=== PATIENT | female | born 1950 | race Caucasian/White ===

== ENCOUNTER 2021-05-03 17:50 | Inpatient (IN) | payer MEDICARE, OTHER, SELFPAY ==
--- NOTE | ~2021-05-03 | CT_ITS ---
EXAMINATION: CT SINUS WITHOUT CONTRAST CLINICAL INFORMATION: Erythema and fever. Evaluate for deep infection. COMPARISON: None TECHNIQUE: Axial images through the facial bones without contrast. Sagittal and coronal sections on the technologist workstation were performed. This CT examination was performed using dose optimization techniques as appropriate, variously including the following: *Automated exposure control *Adjustment of mA and/or kV according to patient size (this includes techniques or standardized protocols for targeted exams where dose is matched to indication/reason for exam; i.e. extremities or head) *Use of iterative reconstruction technique DLP: 112 mGy-cm FINDINGS: There is soft tissue swelling over the forehead. No fluid collection/abscess is seen. The orbits are normal appearing. The visualized paranasal sinuses are clear. There is partial soft tissue opacification of the right mastoid air cells. Mastoid air cells and middle ears are otherwise clear. Visualized salivary glands are normal. The naso, jodie-and hypopharynx are normal. There is mild generalized atrophy. Visualized intracranial structures are otherwise normal. There are degenerative changes at the C1-C2 articulation. Bony structures are otherwise normal. CT/CT sinus wo con IMPRESSION: Soft tissue swelling over the forehead questionable for cellulitis. Partial soft tissue opacification of the right mastoid air cells. Otherwise unremarkable exam.
--- NOTE | ~2021-05-03 | XR_ITS ---
EXAMINATION: XR CHEST CLINICAL INFORMATION: Weakness COMPARISON: None TECHNIQUE: Frontal view of the chest was obtained. FINDINGS: Evidence of previous cardiac surgery. No significant abnormality is noted involving the heart, lungs, mediastinum, bony thorax or soft tissues. XR/XR chest 1V IMPRESSION: No active chest disease.
[2021-05-03 17:59] VITALS: BP 172/88; BP 189/90; PULSE 94; PULSE 95; RESP 18; TEMP 39.2; O2SAT 94; O2SAT 95; BMI 39.1
--- NOTE | 2021-05-03 18:14 | ECG_ITS ---
Test Reason : WEAKNESS Blood Pressure : / mmHG Vent. Rate : 087 BPM Atrial Rate : 087 BPM P-R Int : 146 ms QRS Dur : 100 ms QT Int : 390 ms P-R-T Axes : 065 -03 091 degrees QTc Int : 469 ms Sinus rhythm with occasional Premature ventricular complexes Possible Left atrial enlargement Inferior infarct , age undetermined Nonspecific T wave abnormality Abnormal ECG No previous ECGs available Referred By: Jose Polanco Electronically Signed By:VERÓNICA [email or web address]
[2021-05-03 18:16] VITALS: BP 165/82; PULSE 92; RESP 20; TEMP 38.8; O2SAT 96
--- NOTE | 2021-05-03 18:28 | ED.GENADULT ---
HPI - General Adult General Chief complaint: Weakness <Jose Polanco NP - Last Filed: 05/04/21 01:18> Stated complaint: LETHARGY,WEAKNESS, ? UTI PER FAMILY <Jose Polanco NP - Last Filed: 05/04/21 01:18> Time Seen by Provider: 05/03/21 18:14 <Jose Polanco NP - Last Filed: 05/04/21 01:18> Source: EMS <Jose Polanco NP - Last Filed: 05/04/21 01:18> Mode of arrival: EMS <Jose Polanco NP - Last Filed: 05/04/21 01:18> Limitations: no limitations <Jose Polanco NP - Last Filed: 05/04/21 01:18> History of Present Illness HPI narrative: Pleasant 71-year-old female who lives at home with her daughter recently relocated from [place] to the local area she presents via EMS from home with complaint of generalized weakness. She has a medical history significant for chronic kidney disease, chronic obstructive pulmonary disease, insulin-dependent diabetes, hypertension, hyperlipidemia, congestive heart failure status post open her surgery, fatty liver disease and surgical history of hysterectomy and left knee surgery as well as open heart surgery. Her daughter is a nurse she reports she was doing very well in fact or [place] food yesterday she had her primary care visit on the with . This morning had urinary frequency and foul-smelling urine and this evening developed a fever. Daughter states has history of urine tract infection. Otherwise she is vaccinated for COVID-19 denies any recent travel or sick contact. Patient upon arrival states overall just feeling unwell but no complaints of pain or discomfort. <Jose Polanco NP - Last Filed: 05/04/21 01:18> Onset (ago): hour(s) (24 hours) <Jose Polanco NP - Last Filed: 05/04/21 01:18> Radiation: non-radiation <Jose Polanco NP - Last Filed: 05/04/21 01:18> Severity: moderate <ROSY Lynne Last Filed: 05/04/21 01:18> Quality: burning <ROSY Lynne Last Filed: 05/04/21 01:18> Pain Consistency: constant <Jose Polanco NP - Last Filed: 05/04/21 01:18> Relieving factors: none <Jose Polanco NP - Last Filed: 05/04/21 01:18> Exacerbating factors: none <Jose Polanco NP - Last Filed: 05/04/21 01:18> Associated symptoms: denies other symptoms <Jose Polanco NP - Last Filed: 05/04/21 01:18> Treatments prior to arrival: none <Jose Polanco NP - Last Filed: 05/04/21 01:18> Related Data Home medications: Home Medications Medication Instructions Recorded Confirmed Humalog U-100 Insulin 10 units SUBCUT DAILY 05/03/21 05/03/21 Lantus U-100 Insulin 30 units SUBCUT BEDTIME 05/03/21 05/03/21 Lipitor 20 mg PO DAILY 05/03/21 05/03/21 Probiotic PO DAILY 05/03/21 amlodipine 5 mg PO DAILY 05/03/21 05/03/21 aspirin 81 mg PO DAILY 05/03/21 05/03/21 furosemide 40 mg tablet (Lasix) 40 mg PO BID 05/03/21 05/03/21 losartan 100 mg tablet 100 mg PO DAILY 05/03/21 05/03/21 magnesium 100 mg tablet 100 mg PO DAILY 05/03/21 05/03/21 metoprolol tartrate 25 mg PO BID 05/03/21 05/03/21 multivitamin PO DAILY 05/03/21 niacinamide 500 mg PO BID 05/03/21 05/03/21 potassium chloride 10 meq PO DAILY 05/03/21 tacrolimus 0.2 mg PO DAILY 05/03/21 05/03/21 <Jose Polanco NP - Last Filed: 05/04/21 01:18> Allergies/adverse reactions: Allergies Allergy/AdvReac Type Severity Reaction Status Date / Time No Known Allergies Allergy Verified 05/03/21 18:09 <Jose Polanco NP - Last Filed: 05/04/21 01:18> Most Recent Cardiac Tests: Chest X-Ray 05/03/21 <Jose Polanco NP - Last Filed: 05/04/21 01:18> Pulmonary Results: No Data to Display <Jose Polanco NP - Last Filed: 05/04/21 01:18> Most Recent Cardiac Tests: Chest X-Ray 05/03/21 <Jose Polanco NP - Last Filed: 05/04/21 01:18> Chest X-Ray 05/03/21 <Jose Polanco NP - Last Filed: 05/04/21 01:18> Review of Systems Review of Systems: Constitutional: No Weight loss, + Fever, + Chills, No Night Sweats, No Fatigue ENT/Mouth: No Hearing loss, No Ear Pain, + Nasal Congestion, No Sinus Pain, No Hoarseness, No sore throat, No Rhinorrhea, No Swallowing Difficulty Eyes: No Eye Pain, No Swelling, No Redness, No Foreign Body, No Discharge, No Vision Changes Cardiovascular: No Chest Pain, No SOB, No Dyspnea on Exertion, No Orthopnea, No Edema, No Palpitations Respiratory: No Cough, No Sputum, No Wheezing, No Smoke Exposure, No Dyspnea Gastrointestinal: No Nausea, No Vomiting, No Diarrhea, No Constipation, No abdominal Pain, No Hematochezia, No Melena Genitourinary: no irregular bleeding, + Dysuria, + Urinary Frequency, No Hematuria, No Urinary Incontinence, No Flank Pain, No Hesitancy Musculoskeletal: No joint pain, No Myalgias, No Joint Swelling Skin: No Skin Lesions, No rash Neuro: No Weakness, No Numbness, No Paresthesias, No Loss of Consciousness, No Dizziness, No Headache Psych: No Anxiety/Panic, No Depression, No SI/HI/AH/VH, No Social Issues, Heme/Lymph: No Bruising, No Bleeding,No Lymphadenopathy Endocrine: No Polyuria, No Polydipsia, No Temperature Intolerance <Jose Polanco NP - Last Filed: 05/04/21 01:18> [facility] Past Medical History [facility] Narrative: COPD Insulin-dependent diabetes Hypertension Hyperlipidemia Fatty liver disease CHF Open heart surgery Hysterectomy Left knee surgery <Jose Polanco NP - Last Filed: 05/04/21 01:18> Medical History: Medical History (Updated 05/04/21 @ 02:33 by Troy Abraham RN) CHF (congestive heart failure) Diabetes mellitus type 1 Urinary tract infection <Jose Polanco NP - Last Filed: 05/04/21 01:18> Surgical History: Surgical History (Updated 05/04/21 @ 02:08 by Troy Abraham RN) History of hysterectomy <Jose Polanco NP - Last Filed: 05/04/21 01:18> Social History Social History: Social History Household Members: Family Housing: House Patient Tobacco Use Status: Never used Tobacco Use of substances other than those prescribed or required for medical reasons: No Have you been hit, kicked, punched, or otherwise hurt by someone within the past year? If so, by whom?: No Do you feel safe in your current relationship?: No Current Relationship Is there a partner from a previous relationship who is making you feel unsafe now?: No Are you made to feel afraid or neglected: No Advance Directives: No Advance Directives Information Provided: Yes Do you have thoughts of harming others: None Do you have a plan to hurt others: No Plan Recently lost weight without trying: Unsure Eating poorly because of decreased appetite: Yes Nutrition Risks: Poor intake 0-25% >4 days Patient : No : No Poor oral hygiene: No <Jose Polanco NP - Last Filed: 05/04/21 01:18> Physical Exam Vital Signs: Vital Signs: Last Vital Signs Temp 98.7 F 05/04/21 01:58 Pulse 75 05/04/21 01:58 Resp 05/04/21 01:58 BP 176/74 H 05/04/21 01:58 Pulse Ox 98 05/04/21 01:58 Body Mass Index 39.1 <Jose Polanco NP - Last Filed: 05/04/21 01:18> Vital Signs: Last Vital Signs Temp 98.7 F 05/04/21 01:58 Pulse 75 05/04/21 01:58 Resp 20 05/04/21 01:58 BP 176/74 H 05/04/21 01:58 Pulse Ox 98 05/04/21 01:58 Body Mass Index 39.1 <Suresh Jimenez MD - Last Filed: 05/04/21 05:37> Const: General: cooperative, lethargic (Slightly) and tired appearing; No acute distress or intoxicated appearing <Jose Polanco NP - Last Filed: 05/04/21 01:18> Nutritional Appearance: average body habitus <Jose Polanco NP - Last Filed: 05/04/21 01:18> Orientation/consciousness: patient oriented x3 and lethargic (Slightly) [facility] Last Filed: 05/04/21 01:18> HENMT: Head: Yes normal to inspection <[facility] Polanco, [facility] Last Filed: 05/04/21 01:18> Ears: hearing grossly normal bilaterally <[facility] Last Filed: 05/04/21 01:18> Eyes: General: appearance normal, both eyes and all related structures <[facility] Last Filed: 05/04/21 01:18> Visual Pressley: normal visual pressley by confrontation <[facility] Last Filed: 05/04/21 01:18> Neck: Neck: Yes normal visual inspection, No positive Brudzinski's sign, No positive Kernig's sign and No tender <[facility] Last Filed: 05/04/21 01:18> Thyroid: Thyroid normal <[facility] Last Filed: 05/04/21 01:18> Chest: Chest palpation & inspection: normal inspection of the chest <[facility] Last Filed: 05/04/21 01:18> Breast/axilla inspection: normal inspection of the axillae <[facility] Last Filed: 05/04/21 01:18> Resp: Effort & Inspection: normal respiratory effort <[facility] Last Filed: 05/04/21 01:18> Auscultation: clear to auscultation bilaterally <[facility]lin [facility] Last Filed: 05/04/21 01:18> Cardio: Jugular venous distension: no JVD [facility] Last Filed: 05/04/21 01:18> Rate: regular rate <[facility] Last Filed: 05/04/21 01:18> Rhythm: regular rhythm <[facility] Last Filed: 05/04/21 01:18> Heart sounds: S1 normal heart sound present and S2 normal heart sound present <[facility] Last Filed: 05/04/21 01:18> GI: Inspection: Yes normal to inspection <[facility] Last Filed: 05/04/21 01:18> Percussion: Yes normal to percussion <Jose ROSY Ploanco - Last Filed: 05/04/21 01:18> Auscultation: normal bowel sounds <Jose ROSY Polanco - Last Filed: 05/04/21 01:18> : General: Yes no CVA tenderness <[facility] ROSY Polanco - Last Filed: 05/04/21 01:18> Back/Spine/Pelvis: Back: no CVA tenderness <[facility] ROSY Polanco - Last Filed: 05/04/21 01:18> Skin: General skin exam: no rashes or lesions noted <[facility] ROSY Polanco - Last Filed: 05/04/21 01:18> Neuro: General: patient oriented x3 <Jose ROSY Polanco - Last Filed: 05/04/21 01:18> Extrem: General: Yes normal to inspection <[facility] ROSY Polanco - Last Filed: 05/04/21 01:18> Course Reevaluation(s) Reevaluation #1: 1800 Patient evaluated directly upon arrival febrile for EMS having urinary foul smell and frequency history urinary tract infection along with extensive history as noted above. She does report slight runny nose and congestion. Her daughter is a RN is present at bedside to assist with history. She reports generalized overall feels unwell but does not have any complaints of pain or discomfort. She is alert and oriented x3. She is tachycardic and febrile upon arrival. Sepsis screening done upon arrival. Will treat with gradual IV fluids given her underlying history of heart failure, Tylenol, check labs including respiratory panel, chest x-ray and re-evaluate. <Jose Polanco NP - Last Filed: 05/04/21 01:18> Reevaluation #2: 1830 Presumed urinary in etiology labs and urine obtained will initiate antibiotic therapy with ceftriaxone IV 1 g. Labs pending. Patient is stable at this time. <Jose Polanco NP - Last Filed: 05/04/21 01:18> Reevaluation #3: Labs reveal elevated BUN creatinine question chronic given her CKD history I do not have previous to compare to. Leukocytosis 16.9, lactic acid negative. Plan for admission. Sepsis focused exam completed. <Jose Polanco NP - Last Filed: 05/04/21 01:18> Consultations Consultation #1: Case discussed with hospitalist for admission. <Jose Polanco NP - Last Filed: 05/04/21 01:18> Medical Decision Making Lab Data Result diagrams: : 05/03/21 18:37 05/03/21 23:52 <Jose Polanco NP - Last Filed: 05/04/21 01:18> Labs: Lab Results 05/03/21 05/03/21 05/03/21 Range/Units 18:37 18:37 18:37 WBC 16.9 H (4.8-10.8) X10*3/uL RBC 4.30 (4.20-5.50) X10*6/uL Hgb 13.0 (12.0-16.0) g/dl Hct 36.9 L (37-47) % MCV 85.8 (80-98) fL MCH 30.2 (27.0-33.0) pg MCHC 35.2 H (31.0-35.0) g/dl RDW 14.6 (11.0-16.0) % Plt Count 154 L (160-400) X10*3/uL MPV 10.8 (9.4-12.3) fL Immature Gran % (Auto) 0.5 H (0.0-0.4) % Neut % (Auto) 83.0 H (45-73) % Lymph % (Auto) 8.6 L (20-40) % [place] % (Auto) 7.7 (2-11) % Eos % (Auto) 0.0 (0-4) % Baso % (Auto) 0.2 (0-2) % Lymph # (Auto) 1.5 (1.2-4.9) X10*3/uL [place] # (Auto) 1.3 H (0.1-1.2) X10*3/uL Eos # (Auto) 0.0 (0.0-0.4) X10*3/uL Baso # (Auto) 0.0 (0.0-0.2) X10*3/uL Abs Immat Gran (auto) 0.08 H (0.00-0.03) X10*3/uL Absolute Neuts (auto) 14.0 H (2.0-8.3) X10*3/uL Absolute Nucleated RBC 0.000 (0.0-0.012) X10*3/uL Nucleated RBC % (auto) 0.0 (0.0-0.2) /100WBC PT (9.9-13.0) SEC INR (0.9-1.1) APTT (24.1-38.0) SEC Sodium (135-145) mmol/L Potassium (3.3-5.1) mmol/L Chloride (96-108) mmol/L Carbon Dioxide (22-29) mmol/L Anion Gap (12-20) BUN (9-16) mg/dL Creatinine (0.5-1.4) mg/dL Estim Creat Clear Calc Estimated GFR Random Glucose (60-115) mg/dL Lactic Acid 0.9 (0.5-2.0) mmol/L Calcium (8.4-10.2) mg/dL Ferritin Total Bilirubin (0.0-1.0) mg/dL AST (5-31) U/L ALT (0-31) U/L Alkaline Phosphatase (39-117) U/L Lactate Dehydrogenase (122-220) U/L Troponin I High Sens (<3.5-17.0) ng/L C-Reactive Protein (< or = 0.50) mg/dL B-Natriuretic Peptide (<100) pg/mL Total Protein (6.5-8.0) g/dL Albumin (3.5-5.0) g/dL Procalcitonin ng/mL Urine Color Urine Appearance Urine pH (5.0-8.0) Ur Specific [place] (1.005-1.025) Urine Protein (NEG-TRACE) MG/DL Urine Glucose (UA) (NEG) MG/DL Urine Ketones (NEG) MG/DL Urine Blood (NEG) Urine Nitrite (NEG) Ur Leukocyte Esterase (NEG) Urine RBC (0) /HPF Urine WBC (0-4) /HPF Ur Squamous Epith Cells /LPF Urine Bacteria /LPF Coronavirus (PCR) NEGATIVE (Negative) Influenza Type A (PCR) NEGATIVE (Negative) Influenza Type B (PCR) NEGATIVE (Negative) RSV RNA Qual (PCR) NEGATIVE (Negative) 05/03/21 05/03/21 05/03/21 Range/Units 18:37 18:37 18:37 WBC (4.8-10.8) X10*3/uL RBC (4.20-5.50) X10*6/uL Hgb (12.0-16.0) g/dl Hct (37-47) % MCV (80-98) fL MCH (27.0-33.0) pg MCHC (31.0-35.0) g/dl RDW (11.0-16.0) % Plt Count (160-400) X10*3/uL MPV (9.4-12.3) fL Immature Gran % (Auto) (0.0-0.4) % Neut % (Auto) (45-73) % Lymph % (Auto) (20-40) % [place] % (Auto) (2-11) % Eos % (Auto) (0-4) % Baso % (Auto) (0-2) % Lymph # (Auto) (1.2-4.9) X10*3/uL [place] # (Auto) (0.1-1.2) X10*3/uL Eos # (Auto) (0.0-0.4) X10*3/uL Baso # (Auto) (0.0-0.2) X10*3/uL Abs Immat Gran (auto) (0.00-0.03) X10*3/uL Absolute Neuts (auto) (2.0-8.3) X10*3/uL Absolute Nucleated RBC (0.0-0.012) X10*3/uL Nucleated RBC % (auto) (0.0-0.2) /100WBC PT (9.9-13.0) SEC INR (0.9-1.1) APTT (24.1-38.0) SEC Sodium (135-145) mmol/L Potassium (3.3-5.1) mmol/L Chloride (96-108) mmol/L Carbon Dioxide (22-29) mmol/L Anion Gap (12-20) BUN (9-16) mg/dL Creatinine (0.5-1.4) mg/dL Estim Creat Clear Calc Estimated GFR Random Glucose (60-115) mg/dL Lactic Acid (0.5-2.0) mmol/L Calcium (8.4-10.2) mg/dL Ferritin Cancelled Total Bilirubin (0.0-1.0) mg/dL AST (5-31) U/L ALT (0-31) U/L Alkaline Phosphatase (39-117) U/L Lactate Dehydrogenase (122-220) U/L Troponin I High Sens 28.3 H* (<3.5-17.0) ng/L C-Reactive Protein (< or = 0.50) mg/dL B-Natriuretic Peptide (<100) pg/mL Total Protein (6.5-8.0) g/dL Albumin (3.5-5.0) g/dL Procalcitonin ng/mL Urine Color YELLOW Urine Appearance HAZY Urine pH 7.5 (5.0-8.0) Ur Specific [place] 1.015 (1.005-1.025) Urine Protein 3+ H (NEG-TRACE) MG/DL Urine Glucose (UA) NEG (NEG) MG/DL Urine Ketones NEG (NEG) MG/DL Urine Blood TRACE (NEG) Urine Nitrite POS H (NEG) Ur Leukocyte Esterase TRACE H (NEG) Urine RBC 0-2 (0) /HPF Urine WBC 15-29 H (0-4) /HPF Ur Squamous Epith Cells 1+ /LPF Urine Bacteria 2+ /LPF Coronavirus (PCR) (Negative) Influenza Type A (PCR) (Negative) Influenza Type B (PCR) (Negative) RSV RNA Qual (PCR) (Negative) 05/03/21 05/03/21 05/03/21 Range/Units 19:25 19:25 19:25 WBC (4.8-10.8) X10*3/uL RBC (4.20-5.50) X10*6/uL Hgb (12.0-16.0) g/dl Hct (37-47) % MCV (80-98) fL MCH (27.0-33.0) pg MCHC (31.0-35.0) g/dl RDW (11.0-16.0) % Plt Count (160-400) X10*3/uL MPV (9.4-12.3) fL Immature Gran % (Auto) (0.0-0.4) % Neut % (Auto) (45-73) % Lymph % (Auto) (20-40) % [place] % (Auto) (2-11) % Eos % (Auto) (0-4) % Baso % (Auto) (0-2) % Lymph # (Auto) (1.2-4.9) X10*3/uL [place] # (Auto) (0.1-1.2) X10*3/uL Eos # (Auto) (0.0-0.4) X10*3/uL Baso # (Auto) (0.0-0.2) X10*3/uL Abs Immat Gran (auto) (0.00-0.03) X10*3/uL Absolute Neuts (auto) (2.0-8.3) X10*3/uL Absolute Nucleated RBC (0.0-0.012) X10*3/uL Nucleated RBC % (auto) (0.0-0.2) /100WBC PT 14.6 H (9.9-13.0) SEC INR 1.3 H (0.9-1.1) APTT 43.9 H (24.1-38.0) SEC Sodium 137 (135-145) mmol/L Potassium 4.0 (3.3-5.1) mmol/L Chloride 108 (96-108) mmol/L Carbon Dioxide 20 L (22-29) mmol/L Anion Gap 13 (12-20) BUN 29 H (9-16) mg/dL Creatinine 1.63 H (0.5-1.4) mg/dL Estim Creat Clear Calc 36.2 Estimated GFR 31 Random Glucose 152 H (60-115) mg/dL Lactic Acid (0.5-2.0) mmol/L Calcium 8.4 (8.4-10.2) mg/dL Ferritin 124 Total Bilirubin 0.7 (0.0-1.0) mg/dL AST 24 (5-31) U/L ALT 26 (0-31) U/L Alkaline Phosphatase 49 (39-117) U/L Lactate Dehydrogenase 214 (122-220) U/L Troponin I High Sens (<3.5-17.0) ng/L C-Reactive Protein 6.28 H (< or = 0.50) mg/dL B-Natriuretic Peptide (<100) pg/mL Total Protein 5.4 L (6.5-8.0) g/dL Albumin 3.0 L (3.5-5.0) g/dL Procalcitonin 0.26 ng/mL Urine Color Urine Appearance Urine pH (5.0-8.0) Ur Specific [place] (1.005-1.025) Urine Protein (NEG-TRACE) MG/DL Urine Glucose (UA) (NEG) MG/DL Urine Ketones (NEG) MG/DL Urine Blood (NEG) Urine Nitrite (NEG) Ur Leukocyte Esterase (NEG) Urine RBC (0) /HPF Urine WBC (0-4) /HPF Ur Squamous Epith Cells /LPF Urine Bacteria /LPF Coronavirus (PCR) (Negative) Influenza Type A (PCR) (Negative) Influenza Type B (PCR) (Negative) RSV RNA Qual (PCR) (Negative) 05/03/21 Range/Units 20:22 WBC (4.8-10.8) X10*3/uL RBC (4.20-5.50) X10*6/uL Hgb (12.0-16.0) g/dl Hct (37-47) % MCV (80-98) fL MCH (27.0-33.0) pg MCHC (31.0-35.0) g/dl RDW (11.0-16.0) % Plt Count (160-400) X10*3/uL MPV (9.4-12.3) fL Immature Gran % (Auto) (0.0-0.4) % Neut % (Auto) (45-73) % Lymph % (Auto) (20-40) % [place] % (Auto) (2-11) % Eos % (Auto) (0-4) % Baso % (Auto) (0-2) % Lymph # (Auto) (1.2-4.9) X10*3/uL [place] # (Auto) (0.1-1.2) X10*3/uL Eos # (Auto) (0.0-0.4) X10*3/uL Baso # (Auto) (0.0-0.2) X10*3/uL Abs Immat Gran (auto) (0.00-0.03) X10*3/uL Absolute Neuts (auto) (2.0-8.3) X10*3/uL Absolute Nucleated RBC (0.0-0.012) X10*3/uL Nucleated RBC % (auto) (0.0-0.2) /100WBC PT (9.9-13.0) SEC INR (0.9-1.1) APTT (24.1-38.0) SEC Sodium (135-145) mmol/L Potassium (3.3-5.1) mmol/L Chloride (96-108) mmol/L Carbon Dioxide (22-29) mmol/L Anion Gap (12-20) BUN (9-16) mg/dL Creatinine (0.5-1.4) mg/dL Estim Creat Clear Calc Estimated GFR Random Glucose (60-115) mg/dL Lactic Acid (0.5-2.0) mmol/L Calcium (8.4-10.2) mg/dL Ferritin Total Bilirubin (0.0-1.0) mg/dL AST (5-31) U/L ALT (0-31) U/L Alkaline Phosphatase (39-117) U/L Lactate Dehydrogenase (122-220) U/L Troponin I High Sens 32.5 H* (<3.5-17.0) ng/L C-Reactive Protein (< or = 0.50) mg/dL B-Natriuretic Peptide 249 H (<100) pg/mL Total Protein (6.5-8.0) g/dL Albumin (3.5-5.0) g/dL Procalcitonin ng/mL Urine Color Urine Appearance Urine pH (5.0-8.0) Ur Specific [place] (1.005-1.025) Urine Protein (NEG-TRACE) MG/DL Urine Glucose (UA) (NEG) MG/DL Urine Ketones (NEG) MG/DL Urine Blood (NEG) Urine Nitrite (NEG) Ur Leukocyte Esterase (NEG) Urine RBC (0) /HPF Urine WBC (0-4) /HPF Ur Squamous Epith Cells /LPF Urine Bacteria /LPF Coronavirus (PCR) (Negative) Influenza Type A (PCR) (Negative) Influenza Type B (PCR) (Negative) RSV RNA Qual (PCR) (Negative) <Jose Polanco NP - Last Filed: 05/04/21 01:18> Lab Results 05/03/21 05/03/21 05/03/21 Range/Units 18:37 18:37 18:37 WBC 16.9 H (4.8-10.8) X10*3/uL RBC 4.30 (4.20-5.50) X10*6/uL Hgb 13.0 (12.0-16.0) g/dl Hct 36.9 L (37-47) % MCV 85.8 (80-98) fL MCH 30.2 (27.0-33.0) pg MCHC 35.2 H (31.0-35.0) g/dl RDW 14.6 (11.0-16.0) % Plt Count 154 L (160-400) X10*3/uL MPV 10.8 (9.4-12.3) fL Immature Gran % (Auto) 0.5 H (0.0-0.4) % Neut % (Auto) 83.0 H (45-73) % Lymph % (Auto) 8.6 L (20-40) % [place] % (Auto) 7.7 (2-11) % Eos % (Auto) 0.0 (0-4) % Baso % (Auto) 0.2 (0-2) % Lymph # (Auto) 1.5 (1.2-4.9) X10*3/uL [place] # (Auto) 1.3 H (0.1-1.2) X10*3/uL Eos # (Auto) 0.0 (0.0-0.4) X10*3/uL Baso # (Auto) 0.0 (0.0-0.2) X10*3/uL Abs Immat Gran (auto) 0.08 H (0.00-0.03) X10*3/uL Absolute Neuts (auto) 14.0 H (2.0-8.3) X10*3/uL Absolute Nucleated RBC 0.000 (0.0-0.012) X10*3/uL Nucleated RBC % (auto) 0.0 (0.0-0.2) /100WBC PT (9.9-13.0) SEC INR (0.9-1.1) APTT (24.1-38.0) SEC Sodium (135-145) mmol/L Potassium (3.3-5.1) mmol/L Chloride (96-108) mmol/L Carbon Dioxide (22-29) mmol/L Anion Gap (12-20) BUN (9-16) mg/dL Creatinine (0.5-1.4) mg/dL Estim Creat Clear Calc Estimated GFR Random Glucose (60-115) mg/dL Lactic Acid 0.9 (0.5-2.0) mmol/L Calcium (8.4-10.2) mg/dL Ferritin Total Bilirubin (0.0-1.0) mg/dL AST (5-31) U/L ALT (0-31) U/L Alkaline Phosphatase (39-117) U/L Lactate Dehydrogenase (122-220) U/L Troponin I High Sens (<3.5-17.0) ng/L C-Reactive Protein (< or = 0.50) mg/dL B-Natriuretic Peptide (<100) pg/mL Total Protein (6.5-8.0) g/dL Albumin (3.5-5.0) g/dL Procalcitonin ng/mL Urine Color Urine Appearance Urine pH (5.0-8.0) Ur Specific [place] (1.005-1.025) Urine Protein (NEG-TRACE) MG/DL Urine Glucose (UA) (NEG) MG/DL Urine Ketones (NEG) MG/DL Urine Blood (NEG) Urine Nitrite (NEG) Ur Leukocyte Esterase (NEG) Urine RBC (0) /HPF Urine WBC (0-4) /HPF Ur Squamous Epith Cells /LPF Urine Bacteria /LPF Coronavirus (PCR) NEGATIVE (Negative) Influenza Type A (PCR) NEGATIVE (Negative) Influenza Type B (PCR) NEGATIVE (Negative) RSV RNA Qual (PCR) NEGATIVE (Negative) 05/03/21 05/03/21 05/03/21 Range/Units 18:37 18:37 18:37 WBC (4.8-10.8) X10*3/uL RBC (4.20-5.50) X10*6/uL Hgb (12.0-16.0) g/dl Hct (37-47) % MCV (80-98) fL MCH (27.0-33.0) pg MCHC (31.0-35.0) g/dl RDW (11.0-16.0) % Plt Count (160-400) X10*3/uL MPV (9.4-12.3) fL Immature Gran % (Auto) (0.0-0.4) % Neut % (Auto) (45-73) % Lymph % (Auto) (20-40) % [place] % (Auto) (2-11) % Eos % (Auto) (0-4) % Baso % (Auto) (0-2) % Lymph # (Auto) (1.2-4.9) X10*3/uL [place] # (Auto) (0.1-1.2) X10*3/uL Eos # (Auto) (0.0-0.4) X10*3/uL Baso # (Auto) (0.0-0.2) X10*3/uL Abs Immat Gran (auto) (0.00-0.03) X10*3/uL Absolute Neuts (auto) (2.0-8.3) X10*3/uL Absolute Nucleated RBC (0.0-0.012) X10*3/uL Nucleated RBC % (auto) (0.0-0.2) /100WBC PT (9.9-13.0) SEC INR (0.9-1.1) APTT (24.1-38.0) SEC Sodium (135-145) mmol/L Potassium (3.3-5.1) mmol/L Chloride (96-108) mmol/L Carbon Dioxide (22-29) mmol/L Anion Gap (12-20) BUN (9-16) mg/dL Creatinine (0.5-1.4) mg/dL Estim Creat Clear Calc Estimated GFR Random Glucose (60-115) mg/dL Lactic Acid (0.5-2.0) mmol/L Calcium (8.4-10.2) mg/dL Ferritin Cancelled Total Bilirubin (0.0-1.0) mg/dL AST (5-31) U/L ALT (0-31) U/L Alkaline Phosphatase (39-117) U/L Lactate Dehydrogenase (122-220) U/L Troponin I High Sens 28.3 H* (<3.5-17.0) ng/L C-Reactive Protein (< or = 0.50) mg/dL B-Natriuretic Peptide (<100) pg/mL Total Protein (6.5-8.0) g/dL Albumin (3.5-5.0) g/dL Procalcitonin ng/mL Urine Color YELLOW Urine Appearance HAZY Urine pH 7.5 (5.0-8.0) Ur Specific [place] 1.015 (1.005-1.025) Urine Protein 3+ H (NEG-TRACE) MG/DL Urine Glucose (UA) NEG (NEG) MG/DL Urine Ketones NEG (NEG) MG/DL Urine Blood TRACE (NEG) Urine Nitrite POS H (NEG) Ur Leukocyte Esterase TRACE H (NEG) Urine RBC 0-2 (0) /HPF Urine WBC 15-29 H (0-4) /HPF Ur Squamous Epith Cells 1+ /LPF Urine Bacteria 2+ /LPF Coronavirus (PCR) (Negative) Influenza Type A (PCR) (Negative) Influenza Type B (PCR) (Negative) RSV RNA Qual (PCR) (Negative) 05/03/21 05/03/21 05/03/21 Range/Units 19:25 19:25 19:25 WBC (4.8-10.8) X10*3/uL RBC (4.20-5.50) X10*6/uL Hgb (12.0-16.0) g/dl Hct (37-47) % MCV (80-98) fL MCH (27.0-33.0) pg MCHC (31.0-35.0) g/dl RDW (11.0-16.0) % Plt Count (160-400) X10*3/uL MPV (9.4-12.3) fL Immature Gran % (Auto) (0.0-0.4) % Neut % (Auto) (45-73) % Lymph % (Auto) (20-40) % [place] % (Auto) (2-11) % Eos % (Auto) (0-4) % Baso % (Auto) (0-2) % Lymph # (Auto) (1.2-4.9) X10*3/uL [place] # (Auto) (0.1-1.2) X10*3/uL Eos # (Auto) (0.0-0.4) X10*3/uL Baso # (Auto) (0.0-0.2) X10*3/uL Abs Immat Gran (auto) (0.00-0.03) X10*3/uL Absolute Neuts (auto) (2.0-8.3) X10*3/uL Absolute Nucleated RBC (0.0-0.012) X10*3/uL Nucleated RBC % (auto) (0.0-0.2) /100WBC PT 14.6 H (9.9-13.0) SEC INR 1.3 H (0.9-1.1) APTT 43.9 H (24.1-38.0) SEC Sodium 137 (135-145) mmol/L Potassium 4.0 (3.3-5.1) mmol/L Chloride 108 (96-108) mmol/L Carbon Dioxide 20 L (22-29) mmol/L Anion Gap 13 (12-20) BUN 29 H (9-16) mg/dL Creatinine 1.63 H (0.5-1.4) mg/dL Estim Creat Clear Calc 36.2 Estimated GFR 31 Random Glucose 152 H (60-115) mg/dL Lactic Acid (0.5-2.0) mmol/L Calcium 8.4 (8.4-10.2) mg/dL Ferritin 124 Total Bilirubin 0.7 (0.0-1.0) mg/dL AST 24 (5-31) U/L ALT 26 (0-31) U/L Alkaline Phosphatase 49 (39-117) U/L Lactate Dehydrogenase 214 (122-220) U/L Troponin I High Sens (<3.5-17.0) ng/L C-Reactive Protein 6.28 H (< or = 0.50) mg/dL B-Natriuretic Peptide (<100) pg/mL Total Protein 5.4 L (6.5-8.0) g/dL Albumin 3.0 L (3.5-5.0) g/dL Procalcitonin 0.26 ng/mL Urine Color Urine Appearance Urine pH (5.0-8.0) Ur Specific [place] (1.005-1.025) Urine Protein (NEG-TRACE) MG/DL Urine Glucose (UA) (NEG) MG/DL Urine Ketones (NEG) MG/DL Urine Blood (NEG) Urine Nitrite (NEG) Ur Leukocyte Esterase (NEG) Urine RBC (0) /HPF Urine WBC (0-4) /HPF Ur Squamous Epith Cells /LPF Urine Bacteria /LPF Coronavirus (PCR) (Negative) Influenza Type A (PCR) (Negative) Influenza Type B (PCR) (Negative) RSV RNA Qual (PCR) (Negative) 05/03/21 Range/Units 20:22 WBC (4.8-10.8) X10*3/uL RBC (4.20-5.50) X10*6/uL Hgb (12.0-16.0) g/dl Hct (37-47) % MCV (80-98) fL MCH (27.0-33.0) pg MCHC (31.0-35.0) g/dl RDW (11.0-16.0) % Plt Count (160-400) X10*3/uL MPV (9.4-12.3) fL Immature Gran % (Auto) (0.0-0.4) % Neut % (Auto) (45-73) % Lymph % (Auto) (20-40) % [place] % (Auto) (2-11) % Eos % (Auto) (0-4) % Baso % (Auto) (0-2) % Lymph # (Auto) (1.2-4.9) X10*3/uL [place] # (Auto) (0.1-1.2) X10*3/uL Eos # (Auto) (0.0-0.4) X10*3/uL Baso # (Auto) (0.0-0.2) X10*3/uL Abs Immat Gran (auto) (0.00-0.03) X10*3/uL Absolute Neuts (auto) (2.0-8.3) X10*3/uL Absolute Nucleated RBC (0.0-0.012) X10*3/uL Nucleated RBC % (auto) (0.0-0.2) /100WBC PT (9.9-13.0) SEC INR (0.9-1.1) APTT (24.1-38.0) SEC Sodium (135-145) mmol/L Potassium (3.3-5.1) mmol/L Chloride (96-108) mmol/L Carbon Dioxide (22-29) mmol/L Anion Gap (12-20) BUN (9-16) mg/dL Creatinine (0.5-1.4) mg/dL Estim Creat Clear Calc Estimated GFR Random Glucose (60-115) mg/dL Lactic Acid (0.5-2.0) mmol/L Calcium (8.4-10.2) mg/dL Ferritin Total Bilirubin (0.0-1.0) mg/dL AST (5-31) U/L ALT (0-31) U/L Alkaline Phosphatase (39-117) U/L Lactate Dehydrogenase (122-220) U/L Troponin I High Sens 32.5 H* (<3.5-17.0) ng/L C-Reactive Protein (< or = 0.50) mg/dL B-Natriuretic Peptide 249 H (<100) pg/mL Total Protein (6.5-8.0) g/dL Albumin (3.5-5.0) g/dL Procalcitonin ng/mL Urine Color Urine Appearance Urine pH (5.0-8.0) Ur Specific [place] (1.005-1.025) Urine Protein (NEG-TRACE) MG/DL Urine Glucose (UA) (NEG) MG/DL Urine Ketones (NEG) MG/DL Urine Blood (NEG) Urine Nitrite (NEG) Ur Leukocyte Esterase (NEG) Urine RBC (0) /HPF Urine WBC (0-4) /HPF Ur Squamous Epith Cells /LPF Urine Bacteria /LPF Coronavirus (PCR) (Negative) Influenza Type A (PCR) (Negative) Influenza Type B (PCR) (Negative) RSV RNA Qual (PCR) (Negative) <Suresh Jimenez MD - Last Filed: 05/04/21 05:37> Imaging Data Chest x-ray: Radiologist's impression: [place] [id number] XRay Report Signed Patient: Kim Damian MR#: [id number] : 1950 Acct:[id number] Age/Sex: 71 / F ADM Date: 05/03/21 Loc: .ED Attending Dr: Ordering Physician: Jose Polanoc [employer] Date of Service: 05/03/21 Procedure(s): XR chest 1V Accession Number(s): [id number] cc: Jose Polanco [employer]ER~ EXAMINATION: XR CHEST CLINICAL INFORMATION: Weakness COMPARISON: None TECHNIQUE: Frontal view of the chest was obtained. FINDINGS: Evidence of previous cardiac surgery. No significant abnormality is noted involving the heart, lungs, mediastinum, bony thorax or soft tissues. XR/XR chest 1V IMPRESSION: No active chest disease. ? Dictated By: KASH HAMILTON MD Signed By: <Electronically signed by KASH HAMILTON MD in OV> 05/03/21 1855 DD/ TD/TT:? [employer] Attendant: SL <Jose Polanco NP - Last Filed: 05/04/21 01:18> ECG Data Interpretation: Test Reason : WEAKNESS Blood Pressure : / mmHG Vent. Rate : 087 BPM ? ? Atrial Rate : 087 BPM ?? P-R Int : 146 ms? QRS Dur : 100 ms ? ? QT Int : 390 ms ? ? ? P-R-T Axes : 065 -03 091 degrees ?? QTc Int : 469 ms ? Sinus rhythm with occasional Premature ventricular complexes Possible Left atrial enlargement Inferior infarct , age undetermined Abnormal ECG No previous ECGs available <Jose Polanco NP - Last Filed: 05/04/21 01:18> Critical Care Time Critical Care Time Critical Care Time: Yes <Jose Polanco NP - Last Filed: 05/04/21 01:18> Total Critical Care Time: 65 <Jose Polanco NP - Last Filed: 05/04/21 01:18> Attestation: Presenting with criteria for sepsis, rapidly evaluated and treated accordingly. Multiple visits to bedside for re-evaluation. <Jose Polanco NP - Last Filed: 05/04/21 01:18> Discharge Plan Discharge Clinical Impression: Sepsis <Jose Polanco NP - Last Filed: 05/04/21 01:18> Patient Disposition: Admitted As Inpatient <Jose Polanco NP - Last Filed: 05/04/21 01:18> Interventions: Admission Worksheet (ED) Last Done: 05/04/21 01:44 <Jose Polanco NP - Last Filed: 05/04/21 01:18> Discharge Date/Time: 05/04/21 01:53 <Jose Polanco NP - Last Filed: 05/04/21 01:18>
[2021-05-03 18:45] LABS: MANUAL DIFF FLAG NO
[2021-05-03] MEDS: 0.9 % Sodium Chloride 500 ML IV (18:52)
[2021-05-03] MEDS: cefTRIAXone sodium 1 GM in 0.9 % Sodium Chloride 50 ML IV (18:53)
[2021-05-03 18:55] LABS: Basophils Percent Auto 0.2 % (0-2); Hematocrit 36.9 % (37-47); Imm Gran Abs Auto 0.08 X10*3/uL (0.00-0.03); Imm Gran Pct Auto 0.5 % (0.0-0.4); Lymphocytes Absolute Auto 1.5 X10*3/uL (1.2-4.9); Lymphocytes Percent Auto 8.6 % (20-40); Mean Corpuscular HGB Conc 35.2 g/dl (31.0-35.0); Mean Corpuscular Hemoglobin 30.2 pg (27.0-33.0); Mean Corpuscular Volume 85.8 fL (80-98); Mean Platelet Volume 10.8 fL (9.4-12.3); Monocytes Absolute Auto 1.3 X10*3/uL (0.1-1.2); Monocytes Percent Auto 7.7 % (2-11); Platelet Count 154 X10*3/uL (160-400); Red Cell Distribution Width 14.6 % (11.0-16.0); White Blood Count 16.9 X10*3/uL (4.8-10.8)
[2021-05-03] MEDS: Acetaminophen 325 MG TABLET 975 MG PO (18:55)
[2021-05-03 18:58] LABS: Appearance Urine HAZY; Color Urine YELLOW; Glucose Urine UA NEG (NEG); Leukocyte Esterase Urine TRACE (NEG); Nitrite Urine POS (NEG); PH 7.5 (5.0-8.0); Specific Gravity - Urine 1.015 (1.005-1.025); UACC Culture Trigger YES; Urine Blood TRACE (NEG); Urine Ketones NEG (NEG); Urine Protein 3+ MG/DL (NEG-TRACE)
[2021-05-03 19:05] LABS: Lactic Acid 0.9 mmol/L (0.5-2.0)
[2021-05-03 19:08] LABS: Bacteria Urine 2+ /LPF; RBC Urine 0-2 /HPF (0); Squamous Epithelial Cell Urine 1+ /LPF; UACC CULT YES
[2021-05-03 19:19] VITALS: BP 178/82; PULSE 84; RESP 18; TEMP 37.5; O2SAT 98
[2021-05-03 19:22] LABS: Troponin-I High Sensitivity 28.3 ng/L (<3.5-17.0)
[2021-05-03 19:34] VITALS: BP 172/72; PULSE 84; RESP 18; TEMP 37.4; O2SAT 96
[2021-05-03 19:42] LABS: INTERNATIONAL NORM RATIO 1.3 (0.9-1.1); Prothrombin Time 14.6 SEC (9.9-13.0)
[2021-05-03 19:45] LABS: Partial Thromboplastin Time 43.9 SEC (24.1-38.0)
--- NOTE | 2021-05-03 19:48 | PC.NURSE ---
patient arrives to ED with weakness, febrile, and increased urination. Daughter at bedside. patient A+ox4 but increased drowsiness and some confusion at times. Rectal temp of 102. Provider aware. Labs drawn and sent. 2 IVs placed and flushed. Meds given per OCT. VS taken. Med rec done and completed with daughter. Tylenol given with good effect. patient resting safely. Able to swallow pills whole.
[2021-05-03 20:00] LABS: Alanine Aminotransferase 26 U/L (0-31); Alkaline Phosphatase 49 U/L (39-117); Anion Gap 13 (12-20); Aspartate Amino Transferase 24 U/L (5-31); Bilirubin Total 0.7 mg/dL (0.0-1.0); Blood Urea Nitrogen 29 mg/dL (9-16); C Reactive Protein 6.28 mg/dL (< or = 0.50); Calcium 8.4 mg/dL (8.4-10.2); Carbon Dioxide 20 mmol/L (22-29); Chloride 108 mmol/L (96-108); Creatinine Clr Calc Pharmacy 36.2; Estimated Glomerular Filt Rate 31; Glucose Random 152 mg/dL (60-115); Lactate Dehydrogenase 214 U/L (122-220); Sodium 137 mmol/L (135-145); Total Protein 5.4 g/dL (6.5-8.0)
[2021-05-03 20:16] LABS: Influenza A PCR NEGATIVE (Negative); Influenza B PCR NEGATIVE (Negative); Resp Syncy Virus RNA Qual PCR NEGATIVE (Negative); SARS COV2 PCR INHOUSE NEGATIVE (Negative)
[2021-05-03 20:18] LABS: Procalcitonin 0.26 ng/mL
[2021-05-03 20:20] LABS: Ferritin 124 ng/mL (10-250)
[2021-05-03 20:57] LABS: Troponin-I High Sensitivity 32.5 ng/L (<3.5-17.0)
[2021-05-03 22:00] VITALS: BP 155/70; PULSE 70
[2021-05-03 22:08] VITALS: BP 162/70; PULSE 69; RESP 18; TEMP 36.6; O2SAT 98
[2021-05-03 22:56] LABS: B Type Natriuretic Peptide 249 pg/mL (<100)
--- NOTE | 2021-05-03 23:25 | P.HPHOSP_ITS ---
History of Present Illness Date of Service: 05/03/21 Chief Complaint: urinary frequency, fever 71-year-old female with past medical history of diabetes, hypertension, hyperlipidemia, CKD, CHF, CAD status post CABG brought in by her daughter who is a nurse who reported that patient was doing very well up until today when she started experiencing urinary frequency, foul-smelling urine, and had a fever of 102 at home. Patient currently sleeping very comfortably in bed, arousable, able to give history. She denies any chest pain, no shortness of breath, no abdominal pain nausea or vomiting, no diarrhea constipation, no lower extremity edema. No numbness weakness or tingling. Patient hemodynamically stable with temp of 102.5?, heart rate of 95, respiratory rate of 18, blood pressure 189/90, satting 95% on room air Labs are significant for WBC count of 12.4, prothrombin of 14.6, INR of 1.3, BUN of 29, creatinine of 1.63, troponin of 28.3, repeat of 32.5, CRP of 6.28, BNP of 249, positive UA for nitrites leukocyte [place] and WBC No evidence of active chest disease Patient received 500 cc of IV fluids in the ED and will be admitted for further management of UTI Review of Systems Review of Systems: Yes all other systems are reviewed and are negative [facility] Medical History (Updated 05/04/21 @ 06:47 by Jonatan Garg MD) CAD (coronary artery disease) CHF (congestive heart failure) CKD (chronic kidney disease) Diabetes mellitus type 1 Hypertension Urinary tract infection Pertinent family history: No pertinent family history Surgical History (Updated 05/04/21 @ 02:08 by Troy Abraham RN) History of hysterectomy Social History Household Members: Family Housing: House Patient Tobacco Use Status: Never used Tobacco Use of substances other than those prescribed or required for medical reasons: No Have you been hit, kicked, punched, or otherwise hurt by someone within the past year? If so, by whom?: No Do you feel safe in your current relationship?: No Current Relationship Is there a partner from a previous relationship who is making you feel unsafe now?: No Are you made to feel afraid or neglected: No Advance Directives: No Advance Directives Information Provided: Yes Do you have thoughts of harming others: None Do you have a plan to hurt others: No Plan Recently lost weight without trying: Unsure Eating poorly because of decreased appetite: Yes Nutrition Risks: Poor intake 0-25% >4 days Patient : No : No Poor oral hygiene: No Meds Allergies Allergy/AdvReac Type Severity Reaction Status Date / Time No Known Allergies Allergy Verified 05/03/21 18:09 Home Medications Medication Instructions Recorded Confirmed Last Taken Type Humalog U-100 Insulin 10 units SUBCUT DAILY 05/03/21 05/03/21 05/02/21 History Lantus U-100 Insulin 30 units SUBCUT BEDTIME 05/03/21 05/03/21 05/02/21 History Lipitor 20 mg PO DAILY 05/03/21 05/03/21 05/02/21 History Probiotic PO DAILY 05/03/21 05/02/21 History amlodipine 5 mg PO DAILY 05/03/21 05/03/21 05/02/21 History aspirin 81 mg PO DAILY 05/03/21 05/03/21 05/02/21 History furosemide 40 mg tablet (Lasix) 40 mg PO BID 05/03/21 05/03/21 05/02/21 History losartan 100 mg tablet 100 mg PO DAILY 05/03/21 05/03/21 05/02/21 History magnesium 100 mg tablet 100 mg PO DAILY 05/03/21 05/03/21 05/02/21 History metoprolol tartrate 25 mg PO BID 05/03/21 05/03/21 05/02/21 History multivitamin PO DAILY 05/03/21 05/02/21 History niacinamide 500 mg PO BID 05/03/21 05/03/21 05/02/21 History potassium chloride 10 meq PO DAILY 05/03/21 05/02/21 History tacrolimus 0.2 mg PO DAILY 05/03/21 05/03/21 05/02/21 History Physical Exam Vital Signs and Narrative: Vital Signs: Last Vital Signs Temp 98 F 05/03/21 22:08 Pulse 69 05/03/21 22:08 Resp 18 05/03/21 22:08 BP 162/70 H 05/03/21 22:08 Pulse Ox 98 05/03/21 22:08 Body Mass Index 39.1 Const: General: cooperative and no acute distress Orientation/consciousness: patient oriented x3 Eyes: General: appearance normal, both eyes and all related structures Resp: Effort & Inspection: normal respiratory effort Auscultation: clear to auscultation bilaterally Cardio: Rate: regular rate Rhythm: regular rhythm GI: Palpation (GI): Soft to palpation Auscultation: normal bowel sounds Skin: General skin exam: no rashes or lesions noted Neuro: General: patient oriented x3 Cognition (Neuro): normal cognition Extrem: General: Yes normal to inspection and Yes no pedal edema Results Labs CBC and Chem 7: 05/04/21 05:44 05/03/21 23:52 Labs: Laboratory Results - last 24 hr 05/03/21 05/03/21 05/03/21 18:37 18:37 18:37 MCV 85.8 MCH 30.2 MCHC 35.2 H RDW 14.6 Plt Count 154 L MPV 10.8 Immature Gran % (Auto) 0.5 H Neut % (Auto) 83.0 H Lymph % (Auto) 8.6 L [place] % (Auto) 7.7 Eos % (Auto) 0.0 Baso % (Auto) 0.2 Lymph # (Auto) 1.5 [place] # (Auto) 1.3 H Eos # (Auto) 0.0 Baso # (Auto) 0.0 Abs Immat Gran (auto) 0.08 H Absolute Neuts (auto) 14.0 H Absolute Nucleated RBC 0.000 Nucleated RBC % (auto) 0.0 PT INR APTT Anion Gap Estim Creat Clear Calc Estimated GFR Random Glucose Lactic Acid 0.9 Calcium Ferritin Total Bilirubin AST ALT Alkaline Phosphatase Lactate Dehydrogenase Troponin I High Sens C-Reactive Protein B-Natriuretic Peptide Total Protein Albumin Procalcitonin Urine Color Urine Appearance Urine pH Ur Specific [place] Urine Protein Urine Glucose (UA) Urine Ketones Urine Blood Urine Nitrite Ur Leukocyte Esterase Urine RBC Urine WBC Ur Squamous Epith Cells Urine Bacteria Coronavirus (PCR) NEGATIVE Influenza Type A (PCR) NEGATIVE Influenza Type B (PCR) NEGATIVE RSV RNA Qual (PCR) NEGATIVE 05/03/21 05/03/21 05/03/21 18:37 18:37 18:37 MCV MCH MCHC RDW Plt Count MPV Immature Gran % (Auto) Neut % (Auto) Lymph % (Auto) [place] % (Auto) Eos % (Auto) Baso % (Auto) Lymph # (Auto) [place] # (Auto) Eos # (Auto) Baso # (Auto) Abs Immat Gran (auto) Absolute Neuts (auto) Absolute Nucleated RBC Nucleated RBC % (auto) PT INR APTT Anion Gap Estim Creat Clear Calc Estimated GFR Random Glucose Lactic Acid Calcium Ferritin Cancelled Total Bilirubin AST ALT Alkaline Phosphatase Lactate Dehydrogenase Troponin I High Sens 28.3 H* C-Reactive Protein B-Natriuretic Peptide Total Protein Albumin Procalcitonin Urine Color YELLOW Urine Appearance HAZY Urine pH 7.5 Ur Specific [place] 1.015 Urine Protein 3+ H Urine Glucose (UA) NEG Urine Ketones NEG Urine Blood TRACE Urine Nitrite POS H Ur Leukocyte Esterase TRACE H Urine RBC 0-2 Urine WBC 15-29 H Ur Squamous Epith Cells 1+ Urine Bacteria 2+ Coronavirus (PCR) Influenza Type A (PCR) Influenza Type B (PCR) RSV RNA Qual (PCR) 05/03/21 05/03/21 05/03/21 19:25 19:25 19:25 MCV MCH MCHC RDW Plt Count MPV Immature Gran % (Auto) Neut % (Auto) Lymph % (Auto) [place] % (Auto) Eos % (Auto) Baso % (Auto) Lymph # (Auto) [place] # (Auto) Eos # (Auto) Baso # (Auto) Abs Immat Gran (auto) Absolute Neuts (auto) Absolute Nucleated RBC Nucleated RBC % (auto) PT 14.6 H INR 1.3 H APTT 43.9 H Anion Gap 13 Estim Creat Clear Calc 36.2 Estimated GFR 31 Random Glucose 152 H Lactic Acid Calcium 8.4 Ferritin 124 Total Bilirubin 0.7 AST 24 ALT 26 Alkaline Phosphatase 49 Lactate Dehydrogenase 214 Troponin I High Sens C-Reactive Protein 6.28 H B-Natriuretic Peptide Total Protein 5.4 L Albumin 3.0 L Procalcitonin 0.26 Urine Color Urine Appearance Urine pH Ur Specific [place] Urine Protein Urine Glucose (UA) Urine Ketones Urine Blood Urine Nitrite Ur Leukocyte Esterase Urine RBC Urine WBC Ur Squamous Epith Cells Urine Bacteria Coronavirus (PCR) Influenza Type A (PCR) Influenza Type B (PCR) RSV RNA Qual (PCR) 05/03/21 20:22 MCV MCH MCHC RDW Plt Count MPV Immature Gran % (Auto) Neut % (Auto) Lymph % (Auto) [place] % (Auto) Eos % (Auto) Baso % (Auto) Lymph # (Auto) [place] # (Auto) Eos # (Auto) Baso # (Auto) Abs Immat Gran (auto) Absolute Neuts (auto) Absolute Nucleated RBC Nucleated RBC % (auto) PT INR APTT Anion Gap Estim Creat Clear Calc Estimated GFR Random Glucose Lactic Acid Calcium Ferritin Total Bilirubin AST ALT Alkaline Phosphatase Lactate Dehydrogenase Troponin I High Sens 32.5 H* C-Reactive Protein B-Natriuretic Peptide 249 H Total Protein Albumin Procalcitonin Urine Color Urine Appearance Urine pH Ur Specific [place] Urine Protein Urine Glucose (UA) Urine Ketones Urine Blood Urine Nitrite Ur Leukocyte Esterase Urine RBC Urine WBC Ur Squamous Epith Cells Urine Bacteria Coronavirus (PCR) Influenza Type A (PCR) Influenza Type B (PCR) RSV RNA Qual (PCR) Imaging Radiologist's Impressions: Impressions Chest X-Ray 05/03/21 18:15 IMPRESSION: No active chest disease. Assessment and Plan (1) Urinary tract infection: Status: Acute (2) CKD (chronic kidney disease): Status: Acute (3) Sepsis: Status: Acute 71-year-old female with past medical history of hypertension, hyperlipidemia, diabetes, CAD, CHF presents to the hospital with complaints of urinary frequency found to have urinary tract infection with sepsis # sepsis - secondary to UTI - has fever, leukocytosis - will start on IV antibiotics - follow cultures # UTI - UA positive - will start on IV antibiotics - follow cultures # CKD - no baseline for comparison - on Lasix for history of CHF as well as multiple medications for hypertension - at this time will monitor with repeat BMP # CHF - no evidence of exacerbation - denies any shortness of breath, no lower extremity edema - will continue home Lasix - monitor for respiratory status as well as any changes to kidney function # diabetes - continue home insulin - will add low-dose sliding scale insulin - diabetic diet # history of CAD and CABG - continue aspirin, metoprolol, Lipitor DVT prophylaxis: heparin subq Quality Stroke Does the patient have a stroke diagnosis?: No VTE Prior VTE?: No VTE Risk Level:: Medical - moderate - high VTE Device Contraindication: Treatment Not Indicated VTE Drug Contraindication: N/A - Med Ordered
[2021-05-04] VITALS (13 sets, daily range): BP systolic 160–180; BP diastolic 73–86; PULSE 62–114; RESP 16–20; TEMP 36.7–39.4; O2SAT 93–98; BMI 38.2
[2021-05-04 00:11] LABS: Anion Gap 15 (12-20); Blood Urea Nitrogen 32 mg/dL (9-16); Calcium 8.1 mg/dL (8.4-10.2); Carbon Dioxide 18 mmol/L (22-29); Chloride 108 mmol/L (96-108); Creatinine Clr Calc Pharmacy 32.2; Estimated Glomerular Filt Rate 27; Glucose Random 133 mg/dL (60-115); Potassium 4.1 mmol/L (3.3-5.1); Sodium 137 mmol/L (135-145)
--- NOTE | 2021-05-04 01:41 | PC.NURSE ---
Pt sleeping no sign of distress. Called and gave report to Ric CALDERÓN.
--- NOTE | 2021-05-04 01:47 | PC.NURSE ---
Antibiotic will be start on unit, KAITLYNN Larios aware.
[2021-05-04 02:07] LABS: Glucose, Whole Blood 112 mg/dL (60-115)
[2021-05-04] MEDS: Heparin Sodium,Porcine 5,000 UNIT/ML VIAL 5000 UNIT SUBCUT ×2 (02:13→12:57)
[2021-05-04] MEDS: 0.9 % Sodium Chloride Flush 3 ML SYRINGE IVFLUSH ×4 (02:13→19:27)
[2021-05-04 06:03] LABS: MANUAL DIFF FLAG NO
[2021-05-04 06:07] LABS: Basophils Percent Auto 0.2 % (0-2); Eosinophils Percent Auto 0.1 % (0-4); Hematocrit 37.8 % (37-47); Hemoglobin 13.2 g/dl (12.0-16.0); Imm Gran Abs Auto 0.04 X10*3/uL (0.00-0.03); Imm Gran Pct Auto 0.3 % (0.0-0.4); Lymphocytes Absolute Auto 1.3 X10*3/uL (1.2-4.9); Lymphocytes Percent Auto 10.8 % (20-40); Mean Corpuscular HGB Conc 34.9 g/dl (31.0-35.0); Mean Corpuscular Hemoglobin 29.9 pg (27.0-33.0); Mean Corpuscular Volume 85.7 fL (80-98); Mean Platelet Volume 10.8 fL (9.4-12.3); Monocytes Absolute Auto 1.2 X10*3/uL (0.1-1.2); Monocytes Percent Auto 9.6 % (2-11); Neutrophils Absolute Auto 9.8 X10*3/uL (2.0-8.3); Platelet Count 127 X10*3/uL (160-400); Red Blood Count 4.41 X10*6/uL (4.20-5.50); Red Cell Distribution Width 14.6 % (11.0-16.0); White Blood Count 12.4 X10*3/uL (4.8-10.8)
[2021-05-04 07:34] LABS: Glucose, Whole Blood 141 mg/dL (60-115)
[2021-05-04] MEDS: Aspirin 81 MG TAB.CHEW PO (09:46)
[2021-05-04] MEDS: amLODIPine Besylate 5 MG TABLET PO (09:46)
[2021-05-04] MEDS: Furosemide 40 MG TABLET PO ×2 (09:46→19:26)
[2021-05-04] MEDS: Atorvastatin Calcium 20 MG TABLET PO (09:46)
[2021-05-04] MEDS: Metoprolol Tartrate 25 MG TABLET PO ×2 (09:46→19:27)
--- NOTE | 2021-05-04 09:46 | MHC.CM.PN ---
pt reports living alone does not anticipate the need for services when cd pts daughter is an rn and is supportive of pt .dc plan home mno servceis.
[2021-05-04] MEDS: Acetaminophen 325 MG TABLET 650 MG PO ×2 (11:13→19:26)
[2021-05-04] MEDS: Insulin Lispro 100 UNIT/ML 3 ML VIAL SUBCUT ×2 (11:13→20:22)
--- NOTE | 2021-05-04 11:22 | MHC.CM.PN ---
met with arden requesting a referral to [facility] for rehab
[2021-05-04 11:36] LABS: Glucose, Whole Blood 163 mg/dL (60-115)
--- NOTE | 2021-05-04 11:59 | PHA.PROG ---
Admission Date/Time: May 03, 2021 23:24 Indication: UTI Weight in k.8 kg Adjusted body weight in K.56 kg [place] body weight in K.4 kg Obesity Dosing Indication % IBW: Serum Creatinine - Last 168 Hours 05/03/21 05/03/21 19:25 23:52 Creatinine 1.63 H 1.83 H Estimated CrCl and GFR - Last 168 Hours 05/03/21 05/03/21 19:25 23:52 Estim Creat Clear Calc 36.2 32.2 Estimated GFR 31 27 Vancomycin Loading Dose: 1000 mg x1 dose Current Vancomycin Dosing Regimen: 750 mg Q24H Vancomycin Monitoring using AUC goal of 400 - 600 range with trough as surrogate marker: 549 Date and Time for next Vancomycin Level to be drawn: Random trough at 05/06 @ 1100 Pharmacist Comments on Vancomycin Plan: Continue to monitor patients renal function. Vancomycin dosing will take advantage of [employer] as a clinical decision support tool that uses Bayesian modeling to calculate individual patient's pharmacokinetic parameters and forecast the patient's drug concentration time course with the target goal AUC 24 range of 400 - 600 mg/L/hr.
--- NOTE | 2021-05-04 12:35 | HO.PM.IMPN ---
Subjective Subjective Date of Service: 05/04/21 Interval History: cc: dysuria interval history: erythema over forehead, fever, chills, lethargy Cardiovascular Cardiovascular: Reports no additional cardiovascular complaints Respiratory Respiratory: Reports no additional respiratory complaints Physical Exam Vital Signs: Vital Signs: Last Vital Signs Temp 102 F H 05/04/21 12:00 Pulse 79 05/04/21 12:00 Resp 20 05/04/21 12:00 BP 170/80 H 05/04/21 12:00 Pulse Ox 93 05/04/21 12:00 Body Mass Index 38.2 General: AO X 3, no acute distress SKIN: erythema over forehead, no obvious lesion Resp: CTA bilateral, no accessory muscles used CVS: S1,S2,RRR GI: soft, non tender, non distended Neuro: motor grossly intact, alert Psych: flat affect, appropriate insight Objective Data Active Medications Acetaminophen (Acetaminophen 325 Mg Tablet) 650 mg PO Q6H PRN PRN Reason: Pain, Mild (Pain Scale 1-3) Last Admin: 05/04/21 11:13 Dose: 650 mg Documented by: FABI Amlodipine Besylate (Amlodipine Besylate 5 Mg Tablet) 5 mg PO DAILY [facility] Last Admin: 05/04/21 09:46 Dose: 5 mg Documented by: YOGI Aspirin (Aspirin 81 Mg Tab.Chew) 81 mg PO DAILY [facility] Last Admin: 05/04/21 09:46 Dose: 81 mg Documented by: YOGI Atorvastatin Calcium (Atorvastatin Calcium 20 Mg Tablet) 20 mg PO DAILY [facility] Last Admin: 05/04/21 09:46 Dose: 20 mg Documented by: YOGI Dextrose (Dextrose 50 % 25 Gm/50 Ml Vial) 25 gm IVPUSH Q15M PRN; Protocol PRN Reason: per Hypoglycemia Standing Ord. Docusate Sodium (Docusate Sodium 100 Mg Capsule) 100 mg PO DAILY PRN PRN Reason: Constipation Furosemide (Furosemide 40 Mg Tablet) 40 mg PO BID [facility]; Protocol Last Admin: 05/04/21 09:46 Dose: 40 mg Documented by: YOGI Glucose (Glucose Gel 15 Gm Gel..Gram.) 15 gm PO Q15M PRN; Protocol PRN Reason: per Hypoglycemia Standing Ord. Heparin Sodium (Porcine) (Heparin Sodium,Porcine 5,000 Unit/Ml Vial) 5,000 unit SUBCUT Q12H [facility] Last Admin: 05/04/21 02:13 Dose: 5,000 unit Documented by: JEANNE Ceftriaxone Sodium 1 gm/ (Sodium Chloride) 50 mls @ 100 mls/hr IV Q24H [facility] Vancomycin HCl 1,000 mg/ (Sodium Chloride) 270 mls @ 270 mls/hr IV ONCE ONE Stop: 05/04/21 12:59 Vancomycin HCl 750 mg/ Sodium (Chloride) 265 mls @ 265 mls/hr IV Q24H [facility] Insulin Glargine (Insulin Glargine,Hum.Rec.Anlog 100 Unit/Ml 10 Ml Vial) 30 unit SUBCUT BEDTIME [facility] Insulin Human Lispro (Insulin Lispro 100 Unit/Ml 3 Ml Vial) 10 unit SUBCUT DAILY@0730 [facility] Last Admin: 05/04/21 09:44 Dose: Not Given Documented by: JELENA Non-Admin Reason: ON S/S Insulin Human Lispro (Insulin Lispro 100 Unit/Ml 3 Ml Vial) 0 unit SUBCUT QIDACHS [facility]; Protocol Last Admin: 05/04/21 11:13 Dose: 2 unit Documented by: FABI Metoprolol Tartrate (Metoprolol Tartrate 25 Mg Tablet) 25 mg PO BID [facility] Last Admin: 05/04/21 09:46 Dose: 25 mg Documented by: YOGI Non-Formulary Medication (Magnesium) 100 mg PO DAILY [facility] Ondansetron HCl (Ondansetron Hcl 4 Mg/2 Ml Vial) 4 mg IVPUSH Q8H PRN PRN Reason: Nausea and Vomiting Pharmacy Consult (Consult Rx Vancomycin Dosing) 1 each MISCELLANE DAILY PRN PRN Reason: Consult order Sodium Chloride (0.9 % Sodium Chloride Flush 3 Ml Syringe) 3 ml IVFLUSH QSHIFT [facility] Last Admin: 05/04/21 09:46 Dose: 3 ml Documented by: YOGI Labs CBC & Chem 7: 05/04/21 05:44 05/03/21 23:52 Labs: Laboratory Results - last 24 hr 05/03/21 05/03/21 05/03/21 18:37 18:37 18:37 MCV 85.8 MCH 30.2 MCHC 35.2 H RDW 14.6 Plt Count 154 L MPV 10.8 Immature Gran % (Auto) 0.5 H Neut % (Auto) 83.0 H Lymph % (Auto) 8.6 L [place] % (Auto) 7.7 Eos % (Auto) 0.0 Baso % (Auto) 0.2 Lymph # (Auto) 1.5 [place] # (Auto) 1.3 H Eos # (Auto) 0.0 Baso # (Auto) 0.0 Abs Immat Gran (auto) 0.08 H Absolute Neuts (auto) 14.0 H Absolute Nucleated RBC 0.000 Nucleated RBC % (auto) 0.0 PT INR APTT Anion Gap Estim Creat Clear Calc Estimated GFR POC Glucose Random Glucose Lactic Acid 0.9 Calcium Ferritin Total Bilirubin AST ALT Alkaline Phosphatase Lactate Dehydrogenase Troponin I High Sens C-Reactive Protein B-Natriuretic Peptide Total Protein Albumin Procalcitonin Urine Color Urine Appearance Urine pH Ur Specific [place] Urine Protein Urine Glucose (UA) Urine Ketones Urine Blood Urine Nitrite Ur Leukocyte Esterase Urine RBC Urine WBC Ur Squamous Epith Cells Urine Bacteria Coronavirus (PCR) NEGATIVE Influenza Type A (PCR) NEGATIVE Influenza Type B (PCR) NEGATIVE RSV RNA Qual (PCR) NEGATIVE 05/03/21 05/03/21 05/03/21 18:37 18:37 18:37 MCV MCH MCHC RDW Plt Count MPV Immature Gran % (Auto) Neut % (Auto) Lymph % (Auto) [place] % (Auto) Eos % (Auto) Baso % (Auto) Lymph # (Auto) [place] # (Auto) Eos # (Auto) Baso # (Auto) Abs Immat Gran (auto) Absolute Neuts (auto) Absolute Nucleated RBC Nucleated RBC % (auto) PT INR APTT Anion Gap Estim Creat Clear Calc Estimated GFR POC Glucose Random Glucose Lactic Acid Calcium Ferritin Cancelled Total Bilirubin AST ALT Alkaline Phosphatase Lactate Dehydrogenase Troponin I High Sens 28.3 H* C-Reactive Protein B-Natriuretic Peptide Total Protein Albumin Procalcitonin Urine Color YELLOW Urine Appearance HAZY Urine pH 7.5 Ur Specific [place] 1.015 Urine Protein 3+ H Urine Glucose (UA) NEG Urine Ketones NEG Urine Blood TRACE Urine Nitrite POS H Ur Leukocyte Esterase TRACE H Urine RBC 0-2 Urine WBC 15-29 H Ur Squamous Epith Cells 1+ Urine Bacteria 2+ Coronavirus (PCR) Influenza Type A (PCR) Influenza Type B (PCR) RSV RNA Qual (PCR) 05/03/21 05/03/21 05/03/21 19:25 19:25 19:25 MCV MCH MCHC RDW Plt Count MPV Immature Gran % (Auto) Neut % (Auto) Lymph % (Auto) [place] % (Auto) Eos % (Auto) Baso % (Auto) Lymph # (Auto) [place] # (Auto) Eos # (Auto) Baso # (Auto) Abs Immat Gran (auto) Absolute Neuts (auto) Absolute Nucleated RBC Nucleated RBC % (auto) PT 14.6 H INR 1.3 H APTT 43.9 H Anion Gap 13 Estim Creat Clear Calc 36.2 Estimated GFR 31 POC Glucose Random Glucose 152 H Lactic Acid Calcium 8.4 Ferritin 124 Total Bilirubin 0.7 AST 24 ALT 26 Alkaline Phosphatase 49 Lactate Dehydrogenase 214 Troponin I High Sens C-Reactive Protein 6.28 H B-Natriuretic Peptide Total Protein 5.4 L Albumin 3.0 L Procalcitonin 0.26 Urine Color Urine Appearance Urine pH Ur Specific [place] Urine Protein Urine Glucose (UA) Urine Ketones Urine Blood Urine Nitrite Ur Leukocyte Esterase Urine RBC Urine WBC Ur Squamous Epith Cells Urine Bacteria Coronavirus (PCR) Influenza Type A (PCR) Influenza Type B (PCR) RSV RNA Qual (PCR) 05/03/21 05/03/21 05/04/21 20:22 23:52 02:04 MCV MCH MCHC RDW Plt Count MPV Immature Gran % (Auto) Neut % (Auto) Lymph % (Auto) [place] % (Auto) Eos % (Auto) Baso % (Auto) Lymph # (Auto) [place] # (Auto) Eos # (Auto) Baso # (Auto) Abs Immat Gran (auto) Absolute Neuts (auto) Absolute Nucleated RBC Nucleated RBC % (auto) PT INR APTT Anion Gap 15 Estim Creat Clear Calc 32.2 Estimated GFR 27 POC Glucose 112 Random Glucose 133 H Lactic Acid Calcium 8.1 L Ferritin Total Bilirubin AST ALT Alkaline Phosphatase Lactate Dehydrogenase Troponin I High Sens 32.5 H* C-Reactive Protein B-Natriuretic Peptide 249 H Total Protein Albumin Procalcitonin Urine Color Urine Appearance Urine pH Ur Specific [place] Urine Protein Urine Glucose (UA) Urine Ketones Urine Blood Urine Nitrite Ur Leukocyte Esterase Urine RBC Urine WBC Ur Squamous Epith Cells Urine Bacteria Coronavirus (PCR) Influenza Type A (PCR) Influenza Type B (PCR) RSV RNA Qual (PCR) 09/27/21 09/27/21 09/27/21 05:44 07:03 11:02 MCV 85.7 MCH 29.9 MCHC 34.9 RDW 14.6 Plt Count 127 L MPV 10.8 Immature Gran % (Auto) 0.3 Neut % (Auto) 79.0 H Lymph % (Auto) 10.8 L [place] % (Auto) 9.6 Eos % (Auto) 0.1 Baso % (Auto) 0.2 Lymph # (Auto) 1.3 [place] # (Auto) 1.2 Eos # (Auto) 0.0 Baso # (Auto) 0.0 Abs Immat Gran (auto) 0.04 H Absolute Neuts (auto) 9.8 H Absolute Nucleated RBC 0.000 Nucleated RBC % (auto) 0.0 PT INR APTT Anion Gap Estim Creat Clear Calc Estimated GFR POC Glucose 141 H 163 H Random Glucose Lactic Acid Calcium Ferritin Total Bilirubin AST ALT Alkaline Phosphatase Lactate Dehydrogenase Troponin I High Sens C-Reactive Protein B-Natriuretic Peptide Total Protein Albumin Procalcitonin Urine Color Urine Appearance Urine pH Ur Specific [place] Urine Protein Urine Glucose (UA) Urine Ketones Urine Blood Urine Nitrite Ur Leukocyte Esterase Urine RBC Urine WBC Ur Squamous Epith Cells Urine Bacteria Coronavirus (PCR) Influenza Type A (PCR) Influenza Type B (PCR) RSV RNA Qual (PCR) Microbiology Microbiology Results: Microbiology 05/03/21 18:37 Urine Culture - Preliminary Urine Catheterized - Straight Catheter Gram negative fortino Assessment and Plan (1) Sepsis: Status: Acute (2) CKD (chronic kidney disease): Status: Acute (3) Urinary tract infection: Status: Acute (4) Diabetes mellitus: Status: Acute (5) CAD (coronary artery disease): Status: Acute (6) Hypertension: Status: Acute Assessment and Plan: 71-year-old female with past medical history of hypertension, hyperlipidemia, diabetes, CAD, CHF presents to the hospital with complaints of urinary frequency found to have urinary tract infection with sepsis sepsis due to UTI conitnue rocephin urine growing GNR follow up blood cultures forehead erythema concern for cellulitis added vanco pemphigoid holding tacrolimus CKD unclear baseline CAD asa, statin chronic chf unspecified lasix DM insulin Quality Stroke Does the patient have a stroke diagnosis?: No VTE Prior VTE?: No VTE Risk Level:: Medical - moderate - high VTE Device Contraindication: Treatment Not Indicated VTE Drug Contraindication: N/A - Med Ordered
[2021-05-04] MEDS: vancomycin HCL 1,000 MG in 0.9 % Sodium Chloride 250 ML 270 MG IV (12:57)
--- NOTE | 2021-05-04 13:12 | PHA.MEDREC ---
Pharmacy Consult ? Medication Reconciliation Pharmacy has completed the medication reconciliation. Went to Pt room and spoke with daughter who is a nurse. Verified all meds. Daughter Nancy will bring in the Pt own tacrolimus eye ointment and restasis eye drops. Pt uses mail order, but is also a [place] so can use the [place] pharmacy
--- NOTE | 2021-05-04 16:11 | P.CNID_ITS ---
History of Present Illness Data of Consult Service Date: 05/04/21 Requesting physician: Adam Singh Primary Care Provider: Milla Cantu NP HPI Reason for consult: facial erythema and UTI She presents with weakness and urinary hesitancy She has malodous urine She received Ceftriaxone and then had reddened area on forehead. She claims sinus discomfort and pain there She says she has pemphigus skin Review of Systems Review of Systems: Yes all other systems are reviewed and are negative [facility] Past Medical History Medical History (Updated 05/04/21 @ 16:16 by Flaca Ding MD) CAD (coronary artery disease) CHF (congestive heart failure) CKD (chronic kidney disease) Diabetes mellitus Facial erythema Hypertension Surgical History Surgical History History of hysterectomy S/P CABG (coronary artery bypass graft) Social History Social History Household Members: Family Housing: House Patient Tobacco Use Status: Never used Tobacco Use of substances other than those prescribed or required for medical reasons: No Currently Displaying Signs/Symptoms of Drug Intoxication Withdrawal: No Have you been hit, kicked, punched, or otherwise hurt by someone within the past year? If so, by whom?: No Do you feel safe in your current relationship?: No Current Relationship Is there a partner from a previous relationship who is making you feel unsafe now?: No Are you made to feel afraid or neglected: No Advance Directives: No Advance Directives Information Provided: Yes Do you have thoughts of harming others: None Do you have a plan to hurt others: No Plan Recently lost weight without trying: Unsure Eating poorly because of decreased appetite: Yes Nutrition Risks: Poor intake 0-25% >4 days Patient : No : No Poor oral hygiene: No service: Yes Meds Allergies Allergy/AdvReac Type Severity Reaction Status Date / Time No Known Allergies Allergy Verified 05/03/21 18:09 Active Medications: Current Medications Acetaminophen (Acetaminophen 325 Mg Tablet) 650 mg PO Q6H PRN PRN Reason: Pain, Mild (Pain Scale 1-3) Last Admin: 05/04/21 11:13 Dose: 650 mg Documented by: Amlodipine Besylate (Amlodipine Besylate 5 Mg Tablet) 5 mg PO DAILY [facility] Last Admin: 05/04/21 09:46 Dose: 5 mg Documented by: Aspirin (Aspirin 81 Mg Tab.Chew) 81 mg PO DAILY [facility] Last Admin: 05/04/21 09:46 Dose: 81 mg Documented by: Atorvastatin Calcium (Atorvastatin Calcium 20 Mg Tablet) 20 mg PO DAILY [facility] Last Admin: 05/04/21 09:46 Dose: 20 mg Documented by: Dextrose (Dextrose 50 % 25 Gm/50 Ml Vial) 25 gm IVPUSH Q15M PRN; Protocol PRN Reason: per Hypoglycemia Standing Ord. Docusate Sodium (Docusate Sodium 100 Mg Capsule) 100 mg PO DAILY PRN PRN Reason: Constipation Furosemide (Furosemide 40 Mg Tablet) 40 mg PO BID [facility]; Protocol Last Admin: 05/04/21 09:46 Dose: 40 mg Documented by: Glucose (Glucose Gel 15 Gm Gel..Gram.) 15 gm PO Q15M PRN; Protocol PRN Reason: per Hypoglycemia Standing Ord. Heparin Sodium (Porcine) (Heparin Sodium,Porcine 5,000 Unit/Ml Vial) 5,000 unit SUBCUT Q12H [facility] Last Admin: 05/04/21 12:57 Dose: 5,000 unit Documented by: Ceftriaxone Sodium 1 gm/ (Sodium Chloride) 50 mls @ 100 mls/hr IV Q24H [facility] Vancomycin HCl 750 mg/ Sodium (Chloride) 265 mls @ 265 mls/hr IV Q24H [facility] Insulin Glargine (Insulin Glargine,Hum.Rec.Anlog 100 Unit/Ml 10 Ml Vial) 30 u nit SUBCUT BEDTIME [facility] Insulin Human Lispro (Insulin Lispro 100 Unit/Ml 3 Ml Vial) 10 unit SUBCUT DAILY@0730 [facility] Last Admin: 05/04/21 09:44 Dose: Not Given Documented by: Insulin Human Lispro (Insulin Lispro 100 Unit/Ml 3 Ml Vial) 0 unit SUBCUT QIDACHS [facility]; Protocol Last Admin: 05/04/21 11:13 Dose: 2 unit Documented by: Metoprolol Tartrate (Metoprolol Tartrate 25 Mg Tablet) 25 mg PO BID [facility] Last Admin: 05/04/21 09:46 Dose: 25 mg Documented by: Non-Formulary Medication (Magnesium) 100 mg PO DAILY [facility] Ondansetron HCl (Ondansetron Hcl 4 Mg/2 Ml Vial) 4 mg IVPUSH Q8H PRN PRN Reason: Nausea and Vomiting Pharmacy Consult (Consult Rx Vancomycin Dosing) 1 each MISCELLANE DAILY PRN PRN Reason: Consult order Sodium Chloride (0.9 % Sodium Chloride Flush 3 Ml Syringe) 3 ml [facility] Last Admin: 05/04/21 09:46 Dose: 3 ml Documented by: Home Medications Medication Instructions Recorded Confirmed Last Taken Type amlodipine 5 mg tablet 5 mg PO DAILY 05/04/21 05/04/21 Unknown History aspirin 81 mg tablet,delayed 81 mg PO DAILY 05/04/21 05/04/21 Unknown History release atorvastatin 20 mg tablet 20 mg PO DAILY 05/04/21 05/04/21 Unknown History cyclosporine 0.05 % eye drops 1 drp OPHTHALMIC (EYE) Q12H 05/04/21 05/04/21 Unknown History (Restasis MultiDose) furosemide 40 mg tablet 40 mg PO DAILY 05/04/21 05/04/21 Unknown History insulin glargine 100 unit/mL (3 30 unit SUBCUT BID 05/04/21 05/04/21 Unknown History mL) subcutaneous pen (Lantus Solostar U-100 Insulin) insulin lispro 100 unit/mL 10 unit SUBCUT TID 05/04/21 05/04/21 Unknown History subcutaneous pen (Humalog KwikPen (U-100) Insulin) losartan 100 mg tablet 100 mg PO DAILY 05/04/21 05/04/21 Unknown History magnesium 250 mg tablet 500 mg PO BEDTIME 05/04/21 05/04/21 Unknown History metoprolol tartrate 25 mg tablet 25 mg PO BID 05/04/21 05/04/21 Unknown History multivitamin 1 tab PO DAILY 05/04/21 05/04/21 Unknown History niacinamide 500 mg tablet 500 mg PO BID 05/04/21 05/04/21 Unknown History olopatadine 0.1 % eye drops 1 drp OPHTHALMIC (EYE) BID 05/04/21 05/04/21 Unknown History ([place] Twice Daily Relief) potassium chloride 10 mEq 10 meq PO DAILY 05/04/21 05/04/21 Unknown History capsule,extended release tacrolimus 0.1 % topical ointment 1 appl TOPICAL DAILY 05/04/21 05/04/21 Unknown History Physical Exam Vital Signs: Vital Signs: Last Vital Signs Temp 102 F H 05/04/21 12:00 Pulse 79 05/04/21 12:00 Resp 20 05/04/21 12:00 BP 170/80 H 05/04/21 12:00 Pulse Ox 93 05/04/21 12:00 Body Mass Index 38.2 Const: General: cooperative HENMT: Head images: 1. reddened area head Mouth: Normal oral and palatal mucosa present Eyes: General: appearance normal, both eyes and all related structures Resp: Effort & Inspection: normal respiratory effort Cardio: Rate: regular rate Rhythm: regular rhythm GI: Palpation (GI): Soft to palpation and nontender Skin: General skin exam: no rashes or lesions noted Results Labs CBC & Chem 7: 05/04/21 05:44 05/03/21 23:52 Labs: Short CBC 05/03/21 05/04/21 Range/Units 18:37 05:44 WBC 16.9 H 12.4 H (4.8-10.8) X10*3/uL Hgb 13.0 13.2 (12.0-16.0) g/dl Hct 36.9 L 37.8 (37-47) % Plt Count 154 L 127 L (160-400) X10*3/uL BMP 05/03/21 05/03/21 19:25 23:52 Sodium 137 137 Potassium 4.0 4.1 Chloride 108 108 Carbon Dioxide 20 L 18 L BUN 29 H 32 H Creatinine 1.63 H 1.83 H Calcium 8.4 8.1 L Liver Function 05/03/21 Range/Units 19:25 Total Bilirubin 0.7 (0.0-1.0) mg/dL AST 24 (5-31) U/L ALT 26 (0-31) U/L Alkaline Phosphatase 49 (39-117) U/L Albumin 3.0 L (3.5-5.0) g/dL Urine 05/03/21 Range/Units 18:37 Urine Color YELLOW Urine Appearance HAZY Urine pH 7.5 (5.0-8.0) Ur Specific [place] 1.015 (1.005-1.025) Urine Protein 3+ H (NEG-TRACE) MG/DL Urine Glucose (UA) NEG (NEG) MG/DL Microbiology Microbiology Results: Microbiology 05/03/21 18:37 Urine Catheterized - Straight Catheter Urine Culture - Preliminary Gram negative fortino Assessment and Plan (1) Sepsis: Status: Acute May be due to gram negative urinary sepsis Would continue Ceftriaxone (2) Facial erythema: Status: Acute This appears to be fixed drug eruption from Ceftriaxone (doubt),cellulitis (more likely) or dermatologic condition Would continue Vancomycin Observe and check blood cultures
[2021-05-04 17:07] LABS: Glucose, Whole Blood 114 mg/dL (60-115)
[2021-05-04] MEDS: cefTRIAXone sodium 1 GM in 0.9 % Sodium Chloride 50 ML IV (19:27)
[2021-05-04 20:00] LABS: Glucose, Whole Blood 158 mg/dL (60-115)
[2021-05-05] VITALS (9 sets, daily range): BP systolic 146–198; BP diastolic 72–89; PULSE 51–85; RESP 14–20; TEMP 36.4–37.1; O2SAT 93–97
[2021-05-05] MEDS: Heparin Sodium,Porcine 5,000 UNIT/ML VIAL 5000 UNIT SUBCUT ×2 (01:01→14:06)
[2021-05-05 06:52] LABS: Hematocrit 36.3 % (37-47); Hemoglobin 12.7 g/dl (12.0-16.0); Mean Corpuscular Hemoglobin 29.7 pg (27.0-33.0); Mean Platelet Volume 10.8 fL (9.4-12.3); Platelet Count 139 X10*3/uL (160-400); Red Blood Count 4.27 X10*6/uL (4.20-5.50); Red Cell Distribution Width 14.3 % (11.0-16.0); White Blood Count 13.2 X10*3/uL (4.8-10.8)
[2021-05-05 07:24] LABS: Anion Gap 12 (12-20); Blood Urea Nitrogen 33 mg/dL (9-16); Calcium 8.3 mg/dL (8.4-10.2); Carbon Dioxide 22 mmol/L (22-29); Chloride 106 mmol/L (96-108); Creatinine Clr Calc Pharmacy 43.4; Estimated Glomerular Filt Rate 39; Glucose Fasting 134 mg/dL (60-99); Sodium 136 mmol/L (135-145)
[2021-05-05 07:34] LABS: Glucose, Whole Blood 136 mg/dL (60-115)
[2021-05-05] MEDS: Atorvastatin Calcium 20 MG TABLET PO (08:09)
[2021-05-05] MEDS: 0.9 % Sodium Chloride Flush 3 ML SYRINGE IVFLUSH ×3 (08:09→21:05)
[2021-05-05] MEDS: amLODIPine Besylate 5 MG TABLET PO (08:09)
[2021-05-05] MEDS: Metoprolol Tartrate 25 MG TABLET PO ×2 (08:09→21:04)
[2021-05-05] MEDS: Furosemide 40 MG TABLET PO ×2 (08:09→21:04)
[2021-05-05] MEDS: Aspirin 81 MG TAB.CHEW PO (08:09)
--- NOTE | 2021-05-05 09:21 | P.CDIC_ITS ---
CDI Concurrent Query Documentation Clarification: PHYSICIAN'S DOCUMENTATION REQUEST Date of Query: 05/05/21921 Patient Name: Kim Damian Admit Date: 05/03/21 Dear Doctor, A review of the medical record indicates additional documentation may be needed. Please review below and update the documentation accordingly. Clinical Indicators: Risk Factors/Clinical Indicators/Treatments PMH Congestive heart failure BNP 249 H Home meds: Furosemide 40 mg PO daily No evidence of exacerbation Please provide further specificity regarding the most likely type and acuity of CHF you are evaluating, treating, or monitoring. Examples include: Type: * Systolic * Diastolic * Combined Systolic/Diastolic * Other ? please specify * Unable to determine Acuity: * Acute * Chronic * Acute on chronic * Unable to determine Use of terms such as suspected, likely, concern for, or probable (associated with a specific diagnosis that is being evaluated, monitored, or treated as if it exists) are acceptable and can be coded in the inpatient setting, when documented at the time of discharge. Thank you, Bekah Walker [facility], CDIS Extension: [phone] Please use your independent medical judgment in providing your response. THIS QUERY IS PART OF THE PERMANENT MEDICAL RECORD
--- NOTE | 2021-05-05 10:02 | P.PNIM_ITS ---
Subjective Subjective Date of Service: 05/05/21 Interval History: cc: dysuria interval: still with forehead erythema, had fevers yesterday Cardiovascular Cardiovascular: Reports no additional cardiovascular complaints Respiratory Respiratory: Reports no additional respiratory complaints Physical Exam Vital Signs: Vital Signs: Last Vital Signs Temp 98.4 F 05/05/21 07:12 Pulse 85 05/05/21 08:09 Resp 18 05/05/21 07:12 BP 198/89 H 05/05/21 08:09 Pulse Ox 97 05/05/21 07:12 Body Mass Index 38.2 General: AO X 3, no acute distress SKIN: erythema over forehead, no obvious lesion Resp:? CTA bilateral, no accessory muscles used CVS: S1,S2,RRR GI: soft, non tender, non distended Neuro:? motor grossly intact, alert Psych: flat affect, appropriate insight? Objective Data Active Medications Acetaminophen (Acetaminophen 325 Mg Tablet) 650 mg PO Q6H PRN PRN Reason: Pain, Mild (Pain Scale 1-3) Last Admin: 05/04/21 19:26 Dose: 650 mg Documented by: JEANNE Amlodipine Besylate (Amlodipine Besylate 5 Mg Tablet) 5 mg PO DAILY [facility] Last Admin: 05/05/21 08:09 Dose: 5 mg Documented by: ROLY Aspirin (Aspirin 81 Mg Tab.Chew) 81 mg PO DAILY [facility] Last Admin: 05/05/21 08:09 Dose: 81 mg Documented by: ROLY Atorvastatin Calcium (Atorvastatin Calcium 20 Mg Tablet) 20 mg PO DAILY [facility] Last Admin: 05/05/21 08:09 Dose: 20 mg Documented by: ROLY Dextrose (Dextrose 50 % 25 Gm/50 Ml Vial) 25 gm IVPUSH Q15M PRN; Protocol PRN Reason: per Hypoglycemia Standing Ord. Docusate Sodium (Docusate Sodium 100 Mg Capsule) 100 mg PO DAILY PRN PRN Reason: Constipation Furosemide (Furosemide 40 Mg Tablet) 40 mg PO BID [facility]; Protocol Last Admin: 05/05/21 08:09 Dose: 40 mg Documented by: ROLY Glucose (Glucose Gel 15 Gm Gel..Gram.) 15 gm PO Q15M PRN; Protocol PRN Reason: per Hypoglycemia Standing Ord. Heparin Sodium (Porcine) (Heparin Sodium,Porcine 5,000 Unit/Ml Vial) 5,000 unit SUBCUT Q12H [facility] Last Admin: 05/05/21 01:01 Dose: 5,000 unit Documented by: JEANNE Ceftriaxone Sodium 1 gm/ (Sodium Chloride) 50 mls @ 100 mls/hr IV Q24H [facility] Last Infusion: 05/04/21 20:34 Dose: 0 mls/hr Documented by: JEANNE Vancomycin HCl 750 mg/ Sodium (Chloride) 265 mls @ 265 mls/hr IV Q24H [facility] Insulin Glargine (Insulin Glargine,Hum.Rec.Anlog 100 Unit/Ml 10 Ml Vial) 30 unit SUBCUT BEDTIME [facility] Last Admin: 05/04/21 20:23 Dose: Not Given Documented by: JEANNE Non-Admin Reason: on sliding scale Insulin Human Lispro (Insulin Lispro 100 Unit/Ml 3 Ml Vial) 10 unit SUBCUT DAILY@0730 [facility] Last Admin: 05/05/21 07:44 Dose: Not Given Documented by: ROLY Non-Admin Reason: No Insulin Coverage Insulin Human Lispro (Insulin Lispro 100 Unit/Ml 3 Ml Vial) 0 unit SUBCUT QIDACHS [facility]; Protocol Last Admin: 05/05/21 07:44 Dose: Not Given Documented by: ROLY Non-Admin Reason: No Insulin Coverage Metoprolol Tartrate (Metoprolol Tartrate 25 Mg Tablet) 25 mg PO BID [facility] Last Admin: 05/05/21 08:09 Dose: 25 mg Documented by: ROLY Ondansetron HCl (Ondansetron Hcl 4 Mg/2 Ml Vial) 4 mg IVPUSH Q8H PRN PRN Reason: Nausea and Vomiting Pharmacy Consult (Consult Rx Vancomycin Dosing) 1 each MISCELLANE DAILY PRN PRN Reason: Consult order Sodium Chloride (0.9 % Sodium Chloride Flush 3 Ml Syringe) 3 ml IVFLUSH QSHIFT [facility] Last Admin: 05/05/21 08:09 Dose: 3 ml Documented by: ROLY Labs CBC & Chem 7: 05/05/21 06:07 05/05/21 06:07 Labs: Laboratory Results - last 24 hr 05/04/21 05/04/21 05/04/21 11:02 16:57 19:50 MCV MCH MCHC RDW Plt Count MPV Absolute Nucleated RBC Nucleated RBC % (auto) Anion Gap Estim Creat Clear Calc Estimated GFR POC Glucose 163 H 114 158 H Fasting Glucose Calcium 05/05/21 05/05/21 05/05/21 06:07 06:07 07:13 MCV 85.0 MCH 29.7 MCHC 35.0 RDW 14.3 Plt Count 139 L MPV 10.8 Absolute Nucleated RBC 0.000 Nucleated RBC % (auto) 0.0 Anion Gap 12 Estim Creat Clear Calc 43.4 Estimated GFR 39 POC Glucose 136 H Fasting Glucose 134 H Calcium 8.3 L Microbiology Microbiology Results: Microbiology 05/03/21 18:37 Urine Culture - Final Urine Catheterized - Straight Catheter Proteus mirabilis 05/03/21 18:37 Blood Culture - Preliminary Blood - Venous No growth after 24 hours. 05/03/21 18:37 Blood Culture - Preliminary Blood - Venous No growth after 24 hours. Assessment and Plan (1) Sepsis: Status: Acute (2) CKD (chronic kidney disease): Status: Acute (3) Urinary tract infection: Status: Acute (4) Diabetes mellitus: Status: Acute (5) CAD (coronary artery disease): Status: Acute (6) Hypertension: Status: Acute Assessment and Plan: 71-year-old female with past medical history of hypertension, hyperlipidemia, diabetes, CAD, CHF presents to the hospital with complaints of urinary frequency found to have urinary tract infection with sepsis sepsis due to UTI and facial cellulitis continue rocephin urine growing proteus mirabilis sensistive to rocephin follow up blood cultures - negative so far forehead erythema concern for cellulitis 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
[2021-05-05 11:06] LABS: Glucose, Whole Blood 172 mg/dL (60-115)
--- NOTE | 2021-05-05 11:36 | PC.NURSE ---
Skin assessment completed today. Patient has reness/cellulitis to forehead and left hand. No open areas. No other skin issues noted at this time.
[2021-05-05] MEDS: Insulin Lispro 100 UNIT/ML 3 ML VIAL SUBCUT ×2 (11:39→21:05)
[2021-05-05] MEDS: vancomycin HCL 750 MG in 0.9 % Sodium Chloride 250 ML 265 MG IV (11:39)
[2021-05-05 16:43] LABS: Glucose, Whole Blood 139 mg/dL (60-115)
[2021-05-05] MEDS: cefTRIAXone sodium 1 GM in 0.9 % Sodium Chloride 50 ML IV (18:35)
[2021-05-05 21:00] LABS: Glucose, Whole Blood 164 mg/dL (60-115)
[2021-05-06] VITALS (10 sets, daily range): BP systolic 148–184; BP diastolic 66–98; PULSE 65–69; RESP 12–19; TEMP 36–37.2; O2SAT 96–99
[2021-05-06] MEDS: Heparin Sodium,Porcine 5,000 UNIT/ML VIAL 5000 UNIT SUBCUT ×2 (02:26→13:37)
[2021-05-06] MEDS: amLODIPine Besylate 5 MG TABLET PO ×2 (04:41→08:54)
--- NOTE | 2021-05-06 05:43 | PC.NURSE ---
P: BP 184/81 at 0400, pt denies any symptoms. I: notified, instructed to give scheduled 0900 5mg Norvasc early. 5mg Norvasc given at 04:41. E: Will update AM team at 0715 and recheck BP in one hour.
[2021-05-06 06:10] LABS: Hematocrit 36.9 % (37-47); Hemoglobin 13.1 g/dl (12.0-16.0); Mean Corpuscular HGB Conc 35.5 g/dl (31.0-35.0); Mean Corpuscular Volume 84.4 fL (80-98); Mean Platelet Volume 10.8 fL (9.4-12.3); Platelet Count 155 X10*3/uL (160-400); Red Blood Count 4.37 X10*6/uL (4.20-5.50); Red Cell Distribution Width 14.2 % (11.0-16.0); White Blood Count 9.5 X10*3/uL (4.8-10.8)
[2021-05-06 06:24] LABS: Anion Gap 13 (12-20); Blood Urea Nitrogen 40 mg/dL (9-16); Calcium 8.5 mg/dL (8.4-10.2); Carbon Dioxide 22 mmol/L (22-29); Chloride 105 mmol/L (96-108); Creatinine Clr Calc Pharmacy 44.8; Estimated Glomerular Filt Rate 40; Glucose Fasting 147 mg/dL (60-99); Potassium 3.8 mmol/L (3.3-5.1); Sodium 136 mmol/L (135-145)
[2021-05-06 08:27] LABS: Glucose, Whole Blood 200 mg/dL (60-115)
[2021-05-06] MEDS: Insulin Lispro 100 UNIT/ML 3 ML VIAL 10 UNIT SUBCUT (08:53)
[2021-05-06] MEDS: Insulin Lispro 100 UNIT/ML 3 ML VIAL SUBCUT ×2 (08:53→22:00)
[2021-05-06] MEDS: Atorvastatin Calcium 20 MG TABLET PO (08:54)
[2021-05-06] MEDS: 0.9 % Sodium Chloride Flush 3 ML SYRINGE IVFLUSH ×3 (08:54→22:02)
[2021-05-06] MEDS: Furosemide 40 MG TABLET PO ×2 (08:54→21:59)
[2021-05-06] MEDS: Metoprolol Tartrate 25 MG TABLET PO ×2 (08:54→22:01)
[2021-05-06] MEDS: Aspirin 81 MG TAB.CHEW PO (10:07)
--- NOTE | 2021-05-06 10:25 | P.PNIM_ITS ---
Subjective Subjective Date of Service: 05/06/21 Interval History: cc: dysuira interval history: forehead etyrhema, further spread but company manager, starting to peel Cardiovascular Cardiovascular: Reports no additional cardiovascular complaints Respiratory Respiratory: Reports no additional respiratory complaints Physical Exam Vital Signs: Vital Signs: Last Vital Signs Temp 97.8 F 05/06/21 07:43 Pulse 65 05/06/21 07:43 Resp 16 05/06/21 07:43 BP 181/83 H 05/06/21 08:54 Pulse Ox 97 05/06/21 07:43 Body Mass Index 38.2 General: AO X 3, no acute distress SKIN: erythema over forehead, no obvious lesion Resp:? CTA bilateral, no accessory muscles used CVS: S1,S2,RRR GI: soft, non tender, non distended Neuro:? motor grossly intact, alert Psych: flat affect, appropriate insight? Objective Data Active Medications Acetaminophen (Acetaminophen 325 Mg Tablet) 650 mg PO Q6H PRN PRN Reason: Pain, Mild (Pain Scale 1-3) Last Admin: 05/04/21 19:26 Dose: 650 mg Documented by: JEANNE Amlodipine Besylate (Amlodipine Besylate 5 Mg Tablet) 5 mg PO DAILY [facility] Last Admin: 05/06/21 08:54 Dose: 5 mg Documented by: VARGAS Aspirin (Aspirin 81 Mg Tab.Chew) 81 mg PO DAILY [facility] Last Admin: 05/06/21 10:07 Dose: 81 mg Documented by: VARGAS Atorvastatin Calcium (Atorvastatin Calcium 20 Mg Tablet) 20 mg PO DAILY [facility] Last Admin: 05/06/21 08:54 Dose: 20 mg Documented by: VARGAS Dextrose (Dextrose 50 % 25 Gm/50 Ml Vial) 25 gm IVPUSH Q15M PRN; Protocol PRN Reason: per Hypoglycemia Standing Ord. Docusate Sodium (Docusate Sodium 100 Mg Capsule) 100 mg PO DAILY PRN PRN Reason: Constipation Furosemide (Furosemide 40 Mg Tablet) 40 mg PO BID [facility]; Protocol Last Admin: 05/06/21 08:54 Dose: 40 mg Documented by: VARGAS Glucose (Glucose Gel 15 Gm Gel..Gram.) 15 gm PO Q15M PRN; Protocol PRN Reason: per Hypoglycemia Standing Ord. Heparin Sodium (Porcine) (Heparin Sodium,Porcine 5,000 Unit/Ml Vial) 5,000 unit SUBCUT Q12H [facility] Last Admin: 05/06/21 02:26 Dose: 5,000 unit Documented by: CASSIA Ceftriaxone Sodium 1 gm/ (Sodium Chloride) 50 mls @ 100 mls/hr IV Q24H [facility] Last Infusion: 05/05/21 19:10 Dose: 0 mls/hr Documented by: INNA Vancomycin HCl 750 mg/ Sodium (Chloride) 265 mls @ 265 mls/hr IV Q24H [facility] Last Infusion: 05/05/21 12:46 Dose: 0 mls/hr Documented by: ROLY Insulin Glargine (Insulin Glargine,Hum.Rec.Anlog 100 Unit/Ml 10 Ml Vial) 30 unit SUBCUT BEDTIME [facility] Last Admin: 05/05/21 21:18 Dose: Not Given Documented by: CASSIA Non-Admin Reason: covered by sliding scale Insulin Human Lispro (Insulin Lispro 100 Unit/Ml 3 Ml Vial) 10 unit SUBCUT DA SANDY@0730 [facility] Last Admin: 05/06/21 08:53 Dose: 10 unit Documented by: VARGAS Insulin Human Lispro (Insulin Lispro 100 Unit/Ml 3 Ml Vial) 0 unit SUBCUT QIDACHS [facility]; Protocol Last Admin: 05/06/21 08:53 Dose: 2 unit Documented by: VRAGAS Metoprolol Tartrate (Metoprolol Tartrate 25 Mg Tablet) 25 mg PO BID [facility] Last Admin: 05/06/21 08:54 Dose: 25 mg Documented by: VARGAS Ondansetron HCl (Ondansetron Hcl 4 Mg/2 Ml Vial) 4 mg IVPUSH Q8H PRN PRN Reason: Nausea and Vomiting Pharmacy Consult (Consult Rx Vancomycin Dosing) 1 each MISCELLANE DAILY PRN PRN Reason: Consult order Sodium Chloride (0.9 % Sodium Chloride Flush 3 Ml Syringe) 3 ml IVFLUSH QSHIFT [facility] Last Admin: 05/06/21 08:54 Dose: 3 ml Documented by: VARGAS Labs CBC & Chem 7: 05/06/21 05:53 05/06/21 05:53 Labs: Laboratory Results - last 24 hr 05/05/21 05/05/21 05/05/21 10:54 16:31 20:49 MCV MCH MCHC RDW Plt Count MPV Absolute Nucleated RBC Nucleated RBC % (auto) Anion Gap Estim Creat Clear Calc Estimated GFR POC Glucose 172 H 139 H 164 H Fasting Glucose Calcium 05/06/21 05/06/21 05/06/21 05:53 05:53 08:15 MCV 84.4 MCH 30.0 MCHC 35.5 H RDW 14.2 Plt Count 155 L MPV 10.8 Absolute Nucleated RBC 0.000 Nucleated RBC % (auto) 0.0 Anion Gap 13 Estim Creat Clear Calc 44.8 Estimated GFR 40 POC Glucose 200 H Fasting Glucose 147 H Calcium 8.5 Microbiology Microbiology Results: Microbiology 05/03/21 18:37 Blood Culture - Preliminary Blood - Venous No growth after 48 hours. 05/03/21 18:37 Blood Culture - Preliminary Blood - Venous No growth after 48 hours. 05/03/21 18:37 Urine Culture - Final Urine Catheterized - Straight Catheter Proteus mirabilis Assessment and Plan (1) Sepsis: Status: Acute (2) CKD (chronic kidney disease): Status: Acute (3) Urinary tract infection: Status: Acute (4) Diabetes mellitus: Status: Acute (5) CAD (coronary artery disease): Status: Acute (6) Hypertension: Status: Acute Assessment and Plan: 71-year-old female with past medical history of hypertension, hyperlipidemia, diabetes, CAD, CHF presents to the hospital with complaints of urinary frequency found to have urinary tract infection with sepsis sepsis due to UTI and facial cellulitis continue rocephin, vanc urine growing proteus mirabilis sensistive to rocephin follow up blood cultures - negative so far forehead erythema concern for cellulitis vs dermatitis vanco, monitor closely 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
--- NOTE | 2021-05-06 11:42 | MHC.CM.PN ---
per margot pt remanins on iv vanco not ready for dc cammy shadely following
[2021-05-06 12:18] LABS: Glucose, Whole Blood 107 mg/dL (60-115)
[2021-05-06 13:11] LABS: Vancomycin Random 7.6 mcg/mL (15-20)
[2021-05-06] MEDS: vancomycin HCL 1,000 MG in 0.9 % Sodium Chloride 250 ML 270 MG IV (13:34)
[2021-05-06 16:27] LABS: Glucose, Whole Blood 124 mg/dL (60-115)
[2021-05-06] MEDS: cefTRIAXone sodium 1 GM in 0.9 % Sodium Chloride 50 ML IV (18:26)
[2021-05-06 19:59] LABS: Glucose, Whole Blood 154 mg/dL (60-115)
[2021-05-06] MEDS: Insulin Glargine,Hum.rec.anlog 100 UNIT/ML 10 ML VIAL 30 UNIT SUBCUT (22:00)
[2021-05-07] MEDS: Heparin Sodium,Porcine 5,000 UNIT/ML VIAL 5000 UNIT SUBCUT (01:20)
[2021-05-07 03:52] VITALS: BP 179/74; PULSE 61; RESP 18; TEMP 36.5; O2SAT 95
--- NOTE | 2021-05-07 06:04 | MHC.HEMONC ---
AM BP elevated. HR 61, BP 179/74. Recheck; HR 58, BP 179/81. Dr Phillip notified.
[2021-05-07 06:34] VITALS: BMI 38.1
[2021-05-07 07:09] LABS: Hemoglobin 12.5 g/dl (12.0-16.0); Mean Corpuscular HGB Conc 34.7 g/dl (31.0-35.0); Mean Corpuscular Hemoglobin 29.1 pg (27.0-33.0); Mean Corpuscular Volume 83.9 fL (80-98); Mean Platelet Volume 11.5 fL (9.4-12.3); Platelet Count 185 X10*3/uL (160-400); Red Blood Count 4.29 X10*6/uL (4.20-5.50); Red Cell Distribution Width 13.7 % (11.0-16.0); White Blood Count 8.1 X10*3/uL (4.8-10.8)
[2021-05-07 07:16] VITALS: BP 146/79; PULSE 61; RESP 18; TEMP 36.3; O2SAT 96
[2021-05-07 07:43] LABS: Glucose, Whole Blood 141 mg/dL (60-115)
[2021-05-07 07:43] LABS: Anion Gap 16 (12-20); Blood Urea Nitrogen 48 mg/dL (9-16); Calcium 8.6 mg/dL (8.4-10.2); Carbon Dioxide 20 mmol/L (22-29); Chloride 104 mmol/L (96-108); Creatinine Clr Calc Pharmacy 38.8; Estimated Glomerular Filt Rate 34; Glucose Fasting 144 mg/dL (60-99); Potassium 4.2 mmol/L (3.3-5.1); Sodium 136 mmol/L (135-145)
[2021-05-07 09:10] VITALS: BP 146/79; PULSE 61
[2021-05-07] MEDS: Atorvastatin Calcium 20 MG TABLET PO (09:10)
[2021-05-07] MEDS: Furosemide 40 MG TABLET PO (09:10)
[2021-05-07] MEDS: Metoprolol Tartrate 25 MG TABLET PO (09:10)
[2021-05-07] MEDS: Aspirin 81 MG TAB.CHEW PO (09:10)
[2021-05-07 09:11] VITALS: BP 146/79; PULSE 61
[2021-05-07] MEDS: 0.9 % Sodium Chloride Flush 3 ML SYRINGE IVFLUSH (09:11)
[2021-05-07] MEDS: amLODIPine Besylate 5 MG TABLET PO (09:11)
[2021-05-07] MEDS: Insulin Lispro 100 UNIT/ML 3 ML VIAL 10 UNIT SUBCUT (09:16)
[2021-05-07 10:55] VITALS: BP 146/79; PULSE 61
[2021-05-07 11:13] LABS: Glucose, Whole Blood 90 mg/dL (60-115)
[2021-05-07 11:38] VITALS: BP 182/81; PULSE 63; RESP 16; TEMP 36.7; O2SAT 93
--- NOTE | 2021-05-07 11:44 | PM.DS ---
DS: Providers Provider Date of Service: 05/07/21 Date of admission: 05/03/21 23:24 Primary care physician: Milla Cantu NP Consults: 05/04/21 11:30 Consult to Infectious Diseases Routine Consulting Provider: Flaca Ding Reason for consultation: sepsis, uti, forehead erythema?dermatitis vs cellulitis DS: Diagnosis Discharge Diagnosis (1) Sepsis: Status: Acute (2) CKD (chronic kidney disease): Status: Acute (3) Urinary tract infection: Status: Acute (4) Diabetes mellitus: Status: Acute (5) CAD (coronary artery disease): Status: Acute (6) Hypertension: Status: Acute DS: Summary Hospital Course Hospital Course: Patient was admitted for sepsis secondary to urinary tract infection. She was initially started on ceftriaxone. Urine culture grew Proteus mirabilis that was sensitive ceftriaxone. Blood cultures were negative. Patient then developed erythema over forehead consistent with facial cellulitis. She was seen by infectious disease who recommended IV vancomycin. Erythema improved over next couple days. She will be transitioned to oral Augmentin for 7 more days to cover both urine and skin. Patient also had some acute kidney injury on CKD 2-3 on admission. Creatinine improved from 1.83 to 1.5 at discharge. Time Spent with Patient Time attestation: Total time spent providing and/or coordinating discharge services: Discharge coordination time: Greater than 30 minutes Quality: Stroke Does the patient have a stroke diagnosis?: No Physical Exam Vital Signs: Vital Signs: Last Vital Signs Temp 98.1 F 05/07/21 11:38 Pulse 63 05/07/21 11:38 Resp 16 05/07/21 11:38 BP 182/81 H 05/07/21 11:38 Pulse Ox 93 05/07/21 11:38 Body Mass Index 38.1 General: AO X 3, no acute distress SKIN: erythema over forehead cotninues to improve, no obvious lesion Resp:? CTA bilateral, no accessory muscles used CVS: S1,S2,RRR GI: soft, non tender, non distended Neuro:? motor grossly intact, alert Psych: flat affect, appropriate insight DS: Data Data Completed and Pending Labs on day of discharge: Laboratory Results - last 24 hr 05/06/21 05/06/21 05/06/21 11:54 12:24 16:19 WBC RBC Hgb Hct MCV MCH MCHC RDW Plt Count MPV Absolute Nucleated RBC Nucleated RBC % (auto) Sodium Potassium Chloride Carbon Dioxide Anion Gap BUN Creatinine Estim Creat Clear Calc Estimated GFR POC Glucose 107 124 H Fasting Glucose Calcium Random Vancomycin 7.6 L 05/06/21 05/07/21 05/07/21 19:39 05:59 05:59 WBC 8.1 RBC 4.29 Hgb 12.5 Hct 36.0 L MCV 83.9 MCH 29.1 MCHC 34.7 RDW 13.7 Plt Count 185 MPV 11.5 Absolute Nucleated RBC 0.000 Nucleated RBC % (auto) 0.0 Sodium 136 Potassium 4.2 Chloride 104 Carbon Dioxide 20 L Anion Gap 16 BUN 48 H Creatinine 1.50 H Estim Creat Clear Calc 38.8 Estimated GFR 34 POC Glucose 154 H Fasting Glucose 144 H Calcium 8.6 Random Vancomycin 05/07/21 05/07/21 07:22 10:57 WBC RBC Hgb Hct MCV MCH MCHC RDW Plt Count MPV Absolute Nucleated RBC Nucleated RBC % (auto) Sodium Potassium Chloride Carbon Dioxide Anion Gap BUN Creatinine Estim Creat Clear Calc Estimated GFR POC Glucose 141 H 90 Fasting Glucose Calcium Random Vancomycin Preliminary micro results at discharge 05/03/21 18:37 Blood Culture - Preliminary Blood - Venous No growth after 48 hours. 05/03/21 18:37 Blood Culture - Preliminary Blood - Venous No growth after 48 hours. Discharge Plan Discharge Patient Disposition: [facility] Discharge Diagnosis: sepsis, cellulitis, uti Referrals: Milla Cantu, [employer]STATION ENGINEER [Primary Care Provider] - 1 Week Discharge Medications: New amoxicillin-pot clavulanate [Augmentin] 875-125 mg tablet 1 tab PO Q12H Qty: 14 RF: 0 Continued multivitamin Tablet 1 tab PO DAILY RF: 0 furosemide 40 mg Tablet 40 mg PO DAILY RF: 0 potassium chloride 10 mEq Capsule, Extended Release 10 meq PO DAILY RF: 0 atorvastatin 20 mg Tablet 20 mg PO DAILY RF: 0 amlodipine 5 mg Tablet 5 mg PO DAILY RF: 0 aspirin 81 mg Tablet,Delayed Release (Dr/Ec) 81 mg PO DAILY RF: 0 tacrolimus 0.1 % Ointment 1 appl TOPICAL DAILY RF: 0 niacinamide 500 mg Tablet 500 mg PO BID RF: 0 olopatadine [Pataday Twice Daily Relief] 0.1 % Drops 1 drp OPHTHALMIC (EYE) BID RF: 0 magnesium 250 mg Tablet 500 mg PO BEDTIME RF: 0 losartan 100 mg Tablet 100 mg PO DAILY RF: 0 insulin lispro [Humalog KwikPen Insulin] 100 unit/mL Insulin Pen 10 unit SUBCUT TID RF: 0 metoprolol tartrate 25 mg Tablet 25 mg PO BID RF: 0 Lantus Solostar U-100 Insulin 100 unit/mL (3 mL) Insulin Pen 30 unit SUBCUT BID RF: 0 Restasis MultiDose 0.05 % Drops 1 drp OPHTHALMIC (EYE) Q12H RF: 0 Discharge Orders: Discharge Order (Routine); Ordered 05/07/21 Ordered By: Adam Singh Diet: advance to usual diet Activity on Discharge: As tolerated Stand Alone Forms: Patient Portal Discharge page Care Plan Goals: recovery Health Concerns: cellultiis, uti Plan of Treatment: augmentin Assessment: see above
[2021-05-07 12:37] LABS: COVID-19 Test Negative (Negative); IDNOW Serial# 08D9AD1C
--- NOTE | 2021-05-07 14:19 | MHC.CM.PN ---
Patient has been medically cleared for dc today. Patient will dc to [facility] today at 4PM, via [facility]. Patient and Daughter/Nancy at [phone] are aware of and in agreement with the dc plan. Second IMM addressed with Patient and original has been given to her and a copy has been placed on the chart.
[2021-05-07 16:12] LABS: Glucose, Whole Blood 130 mg/dL (60-115)
== END 2021-05-07 17:22 | disposition skilled nursing facility (03) | DRG 872 ==
LOC: HO.ED 05-04 00:22 → HO.IMC 05-04 01:17
PROVIDERS: Nurse Practitioner Primary Care; Admitting Provider Internal Medicine; Emergency Provider Emergency Medicine; PCP Nurse Practitioner Family; Visit Provider Internal Medicine
DX: A41.9 Sepsis, unspecified organism (principal); N39.0 Urinary tract infection, site not specified; I13.0 Hypertensive heart and chronic kidney disease with heart failure and stage 1 through stage 4 chronic kidney disease, or unspecified chronic kidney disease; L12.9 Pemphigoid, unspecified; L03.211 Cellulitis of face; N17.9 Acute kidney failure, unspecified; B96.4 Proteus (mirabilis) (morganii) as the cause of diseases classified elsewhere; N18.9 Chronic kidney disease, unspecified; N18.30 Chronic kidney disease, stage 3 unspecified; I50.9 Heart failure, unspecified; Z20.822 Contact with and (suspected) exposure to COVID-19; I25.10 Atherosclerotic heart disease of native coronary artery without angina pectoris; E11.22 Type 2 diabetes mellitus with diabetic chronic kidney disease; Z95.1 Presence of aortocoronary bypass graft; Z79.4 Long term (current) use of insulin; Z79.899 Other long term (current) drug therapy
CPT/HCPCS: 0241U; 36415; 70486; 71045; 80048; 80053; 80202; 81001; 82728; 82947; 83605; 83615; 83880; 84145; 84484; 85025; 85027; 85610; 85730; 86140; 87040; 87086; 87088; 87186; 87635; 93005; 97110; 97116; 97162; 99285; J0696; J3370

== ENCOUNTER 2022-06-21 18:20 | Emergency (ER) | payer MEDICARE, OTHER, SELFPAY ==
[2022-06-21 18:33] VITALS: BP 155/78; PULSE 65; O2SAT 98; BMI 35.2
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
[2022-06-21 20:04] LABS: MANUAL DIFF FLAG NO
[2022-06-21 20:06] LABS: Basophils Absolute Auto 0.1 X10*3/uL (0.0-0.2); Basophils Percent Auto 0.5 % (0-2); Eosinophils Absolute Auto 0.4 X10*3/uL (0.0-0.4); Eosinophils Percent Auto 3.4 % (0-4); Hematocrit 32.4 % (37.0-47.0); Hemoglobin 10.4 g/dl (12.0-16.0); Imm Gran Abs Auto 0.06 X10*3/uL (0.00-0.03); Imm Gran Pct Auto 0.5 % (0.0-0.4); Lymphocytes Absolute Auto 3.2 X10*3/uL (1.2-4.9); Lymphocytes Percent Auto 27.5 % (20-40); Mean Corpuscular HGB Conc 32.1 g/dl (31.0-35.0); Mean Corpuscular Hemoglobin 29.6 pg (27.0-33.0); Mean Corpuscular Volume 92.3 fL (80.0-98.0); Mean Platelet Volume 8.6 fL (9.4-12.3); Monocytes Percent Auto 8.8 % (2-11); Neutrophils Absolute Auto 6.9 x10*3/uL (2.0-8.3); Neutrophils Percent Auto 59.3 % (45-73); Platelet Count 147 X10*3/uL (160-400); Red Blood Count 3.51 X10*6/uL (4.20-5.50); Red Cell Distribution Width 15.4 % (11.0-16.0); White Blood Count 11.6 X10*3/uL (4.8-10.8)
--- NOTE | 2022-06-21 20:47 | ECG_ITS ---
Test Reason : GENERAL MEDICAL Blood Pressure : / mmHG Vent. Rate : 057 BPM Atrial Rate : 057 BPM P-R Int : 154 ms QRS Dur : 092 ms QT Int : 436 ms P-R-T Axes : 066 -04 112 degrees QTc Int : 424 ms Sinus bradycardia Minimal voltage criteria for LVH, may be normal variant ( Ramiro product ) Inferior infarct (cited on or before 03-MAY-2021) Anterior infarct , age undetermined ST & T wave abnormality, consider lateral ischemia Abnormal ECG When compared with ECG of 03-MAY-2021 18:55, Premature ventricular complexes are no longer Present Vent. rate has decreased BY 30 BPM Anterior infarct is now Present Referred By: Lis Jackson Electronically Signed By:SILVINA WISE MD
[2022-06-21 20:48] LABS: Alanine Aminotransferase 34 U/L (0-31); Alkaline Phosphatase 73 U/L (39-117); Anion Gap 16 (12-20); Aspartate Amino Transferase 28 U/L (5-31); Bilirubin Direct < 0.2 mg/dL (0.0-0.5); Bilirubin Total 0.3 mg/dL (0.0-1.0); Blood Urea Nitrogen 36 mg/dL (9-16); Calcium 9.6 mg/dL (8.4-10.2); Carbon Dioxide 20 mmol/L (22-29); Chloride 106 mmol/L (96-108); Creatinine Clr Calc Pharmacy 30.6; Estimated Glomerular Filt Rate 27; Glucose Random 176 mg/dL (60-115); Magnesium 1.7 mg/dL (1.6-2.6); Potassium 6.3 mmol/L (3.3-5.1); Sodium 136 mmol/L (135-145); Total Protein 6.9 g/dL (6.5-8.0)
[2022-06-21 20:53] LABS: TSH reflex Free T4 3.01 uIU/mL (0.32-4.0)
[2022-06-21] MEDS: Calcium Gluconate/NaCl,Iso-Osm 2 GM/100 ML PLAST..BAG IV (21:41)
[2022-06-21] MEDS: Sodium Zirconium Cyclosilicate 10 GM POWD.PACK PO (21:41)
[2022-06-21] MEDS: Insulin Regular, Human 100 UNIT/ML 3 ML VIAL IVPUSH (21:49)
--- NOTE | 2022-06-21 21:54 | PC.NURSE ---
CALCIUM GLUCONATE STARTED ACCORDING TO OCT. PER MARK BENAVIDEZ TO BE GIVEN OVER 15 MINUTES DUE TO CARDIAC PROTOCOL. PROVIDER STATES UNABLE TO CHAGE.
[2022-06-21 22:06] VITALS: BP 182/69; PULSE 58; RESP 18; TEMP 36.9; O2SAT 95
[2022-06-21] MEDS: 0.9 % Sodium Chloride 1,000 ML 999 ML IVCONT (22:20)
[2022-06-21] MEDS: Dextrose 50 % 25 GM/50 ML SYRINGE IVPUSH (22:20)
--- NOTE | 2022-06-21 22:23 | PC.NURSE ---
dEXTROSE 50% ORDERED BY MARK BENAVIDEZ. PER PHARMACY TO USE 25GRAM VIAL SYRINGES ARE SAVED FOR CODE CARTS. INFORMED MARK BENAVIDEZ OF THIS.
[2022-06-21 22:47] LABS: Glucose, Whole Blood 216 mg/dL (60-115)
[2022-06-21 23:22] VITALS: BP 176/72; PULSE 70; RESP 17; O2SAT 98
[2022-06-21] MEDS: Metoprolol Tartrate 25 MG TABLET PO (23:22)
--- NOTE | 2022-06-21 23:39 | PC.NURSE ---
per Lis BENAVIDEZ request this RN called [facility] in which pt lives regarding psych evaluation request. per Lis PA does not see need for psych evaluation. RN spoke with nurse renetta at [facility] who states would need to reach out to cnc supervisor and could return call. provider made aware
--- NOTE | 2022-06-21 23:42 | PC.NURSE ---
RE previous note, nurse aide from [facility] spoke with eligibility supervisor regarding the needs for psych evaluation prior to return to facility. Aide states once patient is medically cleared she can be sent back to their facility
[2022-06-22 00:01] LABS: Appearance Urine Clear; Color Urine Yellow; Glucose Urine UA Negative (Negative); Leukocyte Esterase Urine Moderate (2+) (Negative); Nitrite Urine Negative (Negative); PH 5.5 (5.0-9.0); Specific Gravity - Urine 1.015 (1.005-1.025); UMIC TRIGGER UACC YES; Urine Blood Negative (Negative); Urine Ketones Negative (Negative); Urine Protein 300 (3+) mg/dL (Neg-Trace)
[2022-06-22 00:06] LABS: Bacteria Urine None Seen (None Seen); RBC Urine 0-2 /HPF (0-2); UACC Culture Trigger YES; WBC Urine >50 /HPF (0-5)
[2022-06-22 00:47] LABS: Anion Gap 15 (12-20); Blood Urea Nitrogen 34 mg/dL (9-16); Calcium 9.5 mg/dL (8.4-10.2); Carbon Dioxide 20 mmol/L (22-29); Chloride 108 mmol/L (96-108); Creatinine Clr Calc Pharmacy 32.6; Estimated Glomerular Filt Rate 29; Glucose Random 198 mg/dL (60-115); Potassium 5.1 mmol/L (3.3-5.1); Sodium 138 mmol/L (135-145)
[2022-06-22 01:14] VITALS: BP 185/66; PULSE 59; RESP 15; TEMP 36.6; O2SAT 98
[2022-06-22 01:19] VITALS: BP 169/66; PULSE 60
--- NOTE | 2022-06-22 02:10 | PC.NURSE ---
this RN called [facility], spoke with nurse jackson. informed of discharge plan of care. informed that we will be sending a discharge packet with patient by ems. Nurse verbalized understanding of discharge plan
== END 2022-06-22 02:12 | disposition skilled nursing facility (03) ==
PROVIDERS: Physician Assistant; Emergency Provider Internal Medicine; PCP Internal Medicine
DX: E87.5 Hyperkalemia (principal); E11.22 Type 2 diabetes mellitus with diabetic chronic kidney disease; I13.0 Hypertensive heart and chronic kidney disease with heart failure and stage 1 through stage 4 chronic kidney disease, or unspecified chronic kidney disease; N18.9 Chronic kidney disease, unspecified; I50.9 Heart failure, unspecified
CPT/HCPCS: 36415; 80048; 80076; 81001; 81003; 82947; 83735; 84443; 85025; 87086; 93005; 96361; 96365; 96375; 99284; 99285; J0610

== ENCOUNTER 2023-05-22 16:48 | Inpatient (IN) | payer MEDICARE, OTHER, SELFPAY ==
--- NOTE | ~2023-05-22 | XR_ITS ---
EXAMINATION: XR CHEST CLINICAL INFORMATION: Cough. COMPARISON: 05/03/2021. TECHNIQUE: Portable AP view of the chest was obtained. XR/XR chest 1V FINDINGS/IMPRESSION: The study is limited by portable technique and low lung volumes. There is no gross acute radiographic finding. No gross focal infiltrate, effusion, pneumothorax is seen. The heart appears normal in size. The aorta is mildly atherosclerotic. The patient is status post median sternotomy.
--- NOTE | ~2023-05-22 | CT_ITS ---
EXAMINATION: CT HEAD WITHOUT CONTRAST CLINICAL INFORMATION: 73-year-old female with mental status change COMPARISON: None available. TECHNIQUE: Contiguous axial imaging was performed from the skull base to vertex without intravenous administration of contrast. This CT examination was performed using dose optimization techniques as appropriate, variously including the following: *Automated exposure control *Adjustment of mA and/or kV according to patient size (this includes techniques or standardized protocols for targeted exams where dose is matched to indication/reason for exam; i.e. extremities or head) *Use of iterative reconstruction technique DLP: 641 mGy-cm FINDINGS: There is no evidence of acute intracranial hemorrhage or territorial infarction. No abnormal mass-effect or midline shift is seen. Delgado to white matter differentiation is well preserved. No extra-axial fluid collections are identified. The ventricles are significantly distended and sulci are prominent, findings are consistent with marked central volume loss. There are patchy periventricular white matter changes, as a sequela of microangiopathy. There is lacunar infarct in the left thalamus. There is no abnormal attenuation within the brain parenchyma otherwise. The osseous structures and soft tissues are global normal. The mastoid air cells are well-aerated and visualized portions of the paranasal sinuses reveal mucosal thickening can fluid in the left sphenoidal sinus and there is polyposis of the left side of the nasal cavity with expansion of nasal cavity due to soft tissue mass. Maxillary sinuses are well aerated as well as frontal and most of the ethmoidal air cells. CT/CT head/brain wo IV con IMPRESSION: 1. Sequela of microangiopathy and global volume loss. 2. Lacunar infarct in the left thalamus. 3. Sinus disease.
[2023-05-22 17:09] VITALS: BP 122/52; BP 138/49; PULSE 68; PULSE 70; RESP 22; TEMP 36.8; O2SAT 98; O2SAT 99; BMI 31.7
--- NOTE | 2023-05-22 17:17 | ECG_ITS ---
Test Reason : AMS Blood Pressure : / mmHG Vent. Rate : 070 BPM Atrial Rate : 000 BPM P-R Int : 000 ms QRS Dur : 100 ms QT Int : 396 ms P-R-T Axes : 000 011 152 degrees QTc Int : 427 ms Poor data quality Normal sinus rhythm Low voltage QRS Cannot rule out Anteroseptal infarct (cited on or before 03-MAY-2021) ST & T wave abnormality, consider lateral ischemia Abnormal ECG When compared with ECG of 21-JUN-2022 21:47, T wave inversion more evident in Lateral leads Referred By: Freida Douglas Electronically Signed By:SILVINA WISE MD
--- NOTE | 2023-05-22 17:24 | ED_ITS ---
HPI - Weakness General Chief complaint: General Medical Stated complaint: LETHARGIC, DECREASED PO INTAKE X2WKS Time Seen by Provider: 05/22/23 17:01 Source: patient and EMS Mode of arrival: EMS Limitations: other (poor historian ) History of Present Illness HPI Narrative: 73 yo female with PMH of CKD, DM, CAD hx of CABG, HTN, on aspirin, HLD, CHF, here with c/o fatigue, poor PO intake, not herself it looks like it has been going on for 2 weeks and worsening per EMS to RN. She also has bruising, bloody rash on L anterior leg and petechia/bruising L upper arm. She started with a nose bleed on and off today. The patient herself just tells me her leg won't heal... she has dressings that are stuck to the wound so when you pull it off the skin rips off it needed saline to be removed. MD Complaint: generalized weakness Onset (ago): week(s) (2) Duration: progressively worsening Location: generalized Migration: none Severity: moderate Quality: dull Relieving factors: none Exacerbating factors: none Context: other Associated symptoms: easy bruising, loss of appetite and rash Related Data Home Medications Medication Instructions Recorded Confirmed amlodipine 5 mg tablet 5 mg PO DAILY 05/04/21 05/04/21 aspirin 81 mg tablet,delayed 81 mg PO DAILY 05/04/21 05/04/21 release atorvastatin 20 mg tablet 20 mg PO DAILY 05/04/21 05/04/21 cyclosporine 0.05 % eye drops 1 drp ophthalmic (eye) Q12H 05/04/21 05/04/21 (Restasis MultiDose) furosemide 40 mg tablet 40 mg PO DAILY 05/04/21 05/04/21 insulin glargine 100 unit/mL (3 30 unit subcut BID 05/04/21 05/04/21 mL) subcutaneous pen (Lantus Solostar U-100 Insulin) insulin lispro 100 unit/mL 10 unit subcut TID 05/04/21 05/04/21 subcutaneous pen (Humalog KwikPen (U-100) Insulin) losartan 100 mg tablet 100 mg PO DAILY 05/04/21 05/04/21 magnesium 250 mg tablet 500 mg PO BEDTIME 05/04/21 05/04/21 metoprolol tartrate 25 mg tablet 25 mg PO BID 05/04/21 05/04/21 multivitamin 1 tab PO DAILY 05/04/21 05/04/21 niacinamide 500 mg tablet 500 mg PO BID 05/04/21 05/04/21 olopatadine 0.1 % eye drops 1 drp ophthalmic (eye) BID 05/04/21 05/04/21 (Pataday Twice Daily Relief) potassium chloride 10 mEq 10 meq PO DAILY 05/04/21 05/04/21 capsule,extended release tacrolimus 0.1 % topical ointment 1 appl topical DAILY 05/04/21 05/04/21 Previous Rx's Medication Instructions Recorded amoxicillin 875 mg-potassium 1 tab PO Q12H #14 tabs 05/07/21 clavulanate 125 mg tablet (Augmentin) Allergies Allergy/AdvReac Type Severity Reaction Status Date / Time No Known Allergies Allergy Verified 05/03/21 18:09 Review of Systems 2 Review of Systems: ROS unable to be obtained due to poor cognition [facility] Past Medical History Attestation statement: The following information was validated with the patient. Source: old records reviewed Medical History Facial erythema Diabetes mellitus CKD (chronic kidney disease) CAD (coronary artery disease) Hypertension CHF (congestive heart failure) Surgical History S/P CABG (coronary artery bypass graft) History of hysterectomy Social History Social History Household Members: Family Housing: House Patient Tobacco Use Status: Never used Tobacco Advance Directives: Yes Advance Directives on File: Yes Advance Directives Date on File: 05/08/21 service: Yes Physical Exam 2 Vital Signs: Vital Signs: Last Vital Signs Temp 98.2 F 05/22/23 17:09 Pulse 68 05/22/23 17:09 Resp 22 H 05/22/23 17:09 BP 138/49 L 05/22/23 17:09 Pulse Ox 98 05/22/23 17:09 O2 Del Method Room Air 05/22/23 17:09 BMI result Body Mass Index 31.7 Appearance: Alert. Oriented to self No acute distress. Eyes: Pupils equal, round and reactive to light. ENT: Pharynx dried blood in back of oropharynx but no active bleed, L nares clotted blood noted Neck: Normal inspection. Neck supple. CVS: Normal heart rate and rhythm. Pulses normal. Respiratory: No respiratory distress. Breath sounds diminished in both bases Abdomen: Soft and non-tender. Skin: Skin warm and dry. pale skin color. Normal skin turgor. Extremities: No lower extremity edema. L anterior vivar there are ripped off shallow ulcers with friable bleeding edges, ecchymosis noted on L upper arm Neuro: Oriented to self.. No motor deficit. No sensory deficit. Course Course Course Narrative: attempts to reach franci Cruz listed but goes right to voicemail Reevaluation(s) Reevaluation #1: Nancy at bedside - patient is confused they would not want chemo, HD, aware she might have leukemia vs sepsis - no life saving measures she should be DNR/DNI they are trying to reach the HCP Diana. She has not seen patient since 04/29. at this time infection suspected 711pm. Reevaluation #2: intermittent nose bleeds will transfuse platelets she is on aspirin as well. Reevaluation #3: HCP Diana saw her back before her birthday (she lives in [facility]) DNR/DNI/ no lifesaving measures - only wants platelets, IVF, antibiotics, no chemo no HD and if she had a head bleed no treatment just COLLEGE OR UNIVERSITY DEPARTMENT HEAD and morphine gtt. she understands this is temporizing and is not going to fix anything. she is aware this is likely poor prognosis and will end up COLLEGE OR [facility] DEPARTMENT HEAD she states she wants to buy time to come see her. She wants no other treatments other than fluids, antibiotics and platelets after our discussion. I did update franci Cruz in room. Medications Administered Discontinued Medications Generic Name Dose Route Start Last Admin Trade Name Freq PRN Reason Stop Dose Admin Oxymetazoline HCl 2 spray 05/22/23 17:16 05/22/23 18:29 Oxymetazoline Hcl 0.05 % Nasal 15 Ml Orondo NOSTRIL-B 05/22/23 17:17 2 spray ONCE ONE Administration Medical Decision Making Medical Decision Making MDM Narrative: 73 yo female with PMH of CKD, DM, CAD hx of CABG, HTN, on aspirin, HLD, CHF, here with c/o weakness, easy bruising, poor PO intake, confusion, intermittent bloody nose today - symptoms seem to be on and off for 2 weeks at this time will need basic labs, type and screen, UA, CXR, EKG - afrin for nares, possible anemia, thrombocytopenia. I am going to try to call the daughter. Differential Diagnosis Differential Diagnoses: The differential diagnosis associated with the presentation includes anemia, thrombocytopenia, dehydration, FTT Admission/Observation Consideration of admission/observation: Escalation of care including admission/observation considered admit given labs and UTI Consult Healthcare Provider Management of the patient was discussed with: Hospitalist (agrees to admit) Lab Data MDM Lab Attestation statement: I reviewed the patient's lab results. 05/22/23 18:35 05/22/23 18:34 Labs: Lab Results 05/22/23 05/22/23 05/22/23 Range/Units 18:33 18:34 18:35 WBC 34.5 H* (4.8-10.8) X10*3/uL RBC 2.99 L (4.20-5.50) X10*6/uL Hgb 8.6 L (12.0-16.0) g/dl Hct 29.5 L (37.0-47.0) % MCV 98.7 H (80.0-98.0) fL MCH 28.8 (27.0-33.0) pg MCHC 29.2 L (31.0-35.0) g/dl RDW 29.9 H (11.0-16.0) % Plt Count 22 L D (160-400) X10*3/uL MPV 9.7 (9.4-12.3) fL Immature Gran % (Auto) Cancelled Neut % (Auto) Cancelled Lymph % (Auto) Cancelled [facility] % (Auto) Cancelled Eos % (Auto) Cancelled Baso % (Auto) Cancelled Lymph # (Auto) Cancelled [facility] # (Auto) Cancelled Eos # (Auto) Cancelled Baso # (Auto) Cancelled Abs Immat Gran (auto) Cancelled Absolute Neuts (auto) Cancelled Absolute Nucleated RBC 0.230 H (0.0-0.012) X10*3/uL Nucleated RBC % (auto) 0.7 H (0.0-0.2) /100WBC Neutrophils % (Manual) 89 H (45-73) % Band Neutrophils % 2 L (3-5) % Lymphocytes % (Manual) 5 L (20-40) % Monocytes % (Manual) 1 L (2-11) % Metamyelocytes % 3 % Abs Neuts (Manual) 31.4 H (2.0-8.3) X10*3/uL Lymphocytes # (Manual) 1.7 (1.2-4.9) X10*3/uL Monocytes # (Manual) 0.3 (0.1-1.2) X10*3/uL Metamyelocytes # 1.0 X10*3/uL Nucleated RBCs 1 H (0-0) /100WBC Platelet Estimate DECREASED (NORMAL) Plt Morphology Comment NORMAL RBC Morphology NOTED Macrocytosis 1+ (5-14) /OIF Acanthocytes (Spur) 2+ (3-5) /OIF PT 15.2 H (11.1-13.3) SEC INR 1.3 H (0.9-1.1) APTT 30.4 (26.0-36.4) SEC VBG pH (7.32-7.43) VBG pCO2 mmHg VBG pO2 mmHg VBG HCO3 (22-26) mmol/L VBG O2 Saturation % VBG Base Excess mmol/L Sodium 135 (135-145) mmol/L Potassium 6.8 H* D (3.3-5.1) mmol/L Chloride 114 H (96-108) mmol/L Carbon Dioxide 9 L* D (22-29) mmol/L Anion Gap 19 (12-20) BUN 119 H (9-16) mg/dL Creatinine 6.96 H* (0.5-1.4) mg/dL Estim Creat Clear Calc 7.7 Estimated GFR 6 Random Glucose 213 H (60-115) mg/dL Lactic Acid 1.2 (0.5-2.0) mmol/L Calcium 9.9 (8.4-10.2) mg/dL Magnesium 3.0 H (1.6-2.6) mg/dL Total Bilirubin 1.3 H (0.0-1.0) mg/dL Direct Bilirubin 0.6 H (0.0-0.5) mg/dL AST 19 (5-31) U/L ALT 11 (0-31) U/L Alkaline Phosphatase 33 L (39-117) U/L Ammonia 31 (13-55) umol/L Troponin I High Sens 29.7 H (<3.5-17.0) ng/L Total Protein 7.6 (6.5-8.0) g/dL Albumin 3.8 (3.5-5.0) g/dL Lipase 44 (8-78) U/L Urine Color Urine Appearance Urine pH (5.0-9.0) Ur Specific [place] (1.005-1.025) Urine Protein (Neg-Trace) mg/dL Urine Glucose (UA) (Negative) mg/dL Urine Ketones (Negative) mg/dL Urine Blood (Negative) Urine Nitrite (Negative) Ur Leukocyte Esterase (Negative) Urine RBC (0-2) /HPF Urine WBC (0-5) /HPF Ur Squamous Epith Cells (0-2) /HPF Urine Bacteria (None Seen) Hyaline Casts (0-2) /LPF 05/22/23 05/22/23 Range/Units 18:37 18:44 WBC (4.8-10.8) X10*3/uL RBC (4.20-5.50) X10*6/uL Hgb (12.0-16.0) g/dl Hct (37.0-47.0) % MCV (80.0-98.0) fL MCH (27.0-33.0) pg MCHC (31.0-35.0) g/dl RDW (11.0-16.0) % Plt Count (160-400) X10*3/uL MPV (9.4-12.3) fL Immature Gran % (Auto) Neut % (Auto) Lymph % (Auto) [facility] [place] % (Auto) Eos % (Auto) Baso % (Auto) Lymph # (Auto) [facility] [place] [facility] # (Auto) Eos # (Auto) Baso # (Auto) Abs Immat Gran (auto) Absolute Neuts (auto) Absolute Nucleated RBC (0.0-0.012) X10*3/uL Nucleated RBC % (auto) (0.0-0.2) /100WBC Neutrophils % (Manual) (45-73) % Band Neutrophils % (3-5) % Lymphocytes % (Manual) (20-40) % Monocytes % (Manual) (2-11) % Metamyelocytes % % Abs Neuts (Manual) (2.0-8.3) X10*3/uL Lymphocytes # (Manual) (1.2-4.9) X10*3/uL Monocytes # (Manual) (0.1-1.2) X10*3/uL Metamyelocytes # X10*3/uL Nucleated RBCs (0-0) /100WBC Platelet Estimate (NORMAL) Plt Morphology Comment RBC Morphology Macrocytosis /OIF Acanthocytes (Spur) /OIF PT (11.1-13.3) SEC INR (0.9-1.1) APTT (26.0-36.4) SEC VBG pH 7.20 L* (7.32-7.43) VBG pCO2 23 mmHg VBG pO2 46 mmHg VBG HCO3 9 L (22-26) mmol/L VBG O2 Saturation 71.0 % VBG Base Excess -16.7 mmol/L Sodium (135-145) mmol/L Potassium (3.3-5.1) mmol/L Chloride (96-108) mmol/L Carbon Dioxide (22-29) mmol/L Anion Gap (12-20) BUN (9-16) mg/dL Creatinine (0.5-1.4) mg/dL Estim Creat Clear Calc Estimated GFR Random Glucose (60-115) mg/dL Lactic Acid (0.5-2.0) mmol/L Calcium (8.4-10.2) mg/dL Magnesium (1.6-2.6) mg/dL Total Bilirubin (0.0-1.0) mg/dL Direct Bilirubin (0.0-0.5) mg/dL AST (5-31) U/L ALT (0-31) U/L Alkaline Phosphatase (39-117) U/L Ammonia (13-55) umol/L Troponin I High Sens (<3.5-17.0) ng/L Total Protein (6.5-8.0) g/dL Albumin (3.5-5.0) g/dL Lipase (8-78) U/L Urine Color Yellow Urine Appearance Turbid Urine pH 6.5 (5.0-9.0) Ur Specific [place] 1.025 (1.005-1.025) Urine Protein 300 (3+) H (Neg-Trace) mg/dL Urine Glucose (UA) 100 H (Negative) mg/dL Urine Ketones Trace (Negative) mg/dL Urine Blood Large (3+) H (Negative) Urine Nitrite Positive H (Negative) Ur Leukocyte Esterase Large (3+) H (Negative) Urine RBC >20 H (0-2) /HPF Urine WBC >50 H (0-5) /HPF Ur Squamous Epith Cells 3-5 (0-2) /HPF Urine Bacteria 4+ (None Seen) Hyaline Casts >20 (0-2) /LPF Independent Interpretation I performed an independent interpretation of an: EKG, Plain X-Ray and CT Scan Interpretation: Rate: 70 Rhythm: NSR Bagley: normal Normal P waves. Normal SHAZIA. Normal QRS complex. ST T wave : no GILBERT, q waves III, inverted t waves II , I aVL old new t waves in V5-V6 (new) qTC: normal prior studies: some new T wave changes The study has been interpreted contemporaneously by me. . Radiology Impression Discussion of test interpretation with radiology: I have reviewed the radiologist's reading. Independent Historian Clinical information obtained from an independent historian. History obtained from or confirmed by: EMS and Other (daughter) External Record Review External record reviewed: Inpatient record Social Determinants Patient?s care significantly limited by Social Determinants of Health including: Problems related to primary support group Discharge Plan Discharge Clinical Impression: Thrombocytopenia, Acute UTI, Metabolic acidosis, Acute hyperkalemia Leukocytosis Qualifiers: Leukocytosis type: unspecified Qualified Code(s): D72.829 - Elevated white blood cell count, unspecified Patient Disposition: Admitted As Inpatient Prescriptions: No Action multivitamin Tablet 1 tab PO DAILY furosemide 40 mg Tablet 40 mg PO DAILY potassium chloride 10 mEq Capsule, Extended Release 10 meq PO DAILY atorvastatin 20 mg Tablet 20 mg PO DAILY amlodipine 5 mg Tablet 5 mg PO DAILY aspirin 81 mg Tablet,Delayed Release (Dr/Ec) 81 mg PO DAILY tacrolimus 0.1 % Ointment 1 appl TOPICAL DAILY Protocol: Apply to: Apply to: eyes niacinamide 500 mg Tablet 500 mg PO BID olopatadine [Pataday Twice Daily Relief] 0.1 % Drops 1 drp OPHTHALMIC (EYE) BID magnesium 250 mg Tablet 500 mg PO BEDTIME losartan 100 mg Tablet 100 mg PO DAILY insulin lispro [Humalog KwikPen Insulin] 100 unit/mL Insulin Pen 10 unit SUBCUT TID metoprolol tartrate 25 mg Tablet 25 mg PO BID Lantus Solostar U-100 Insulin 100 unit/mL (3 mL) Insulin Pen 30 unit SUBCUT BID Restasis MultiDose 0.05 % Drops 1 drp OPHTHALMIC (EYE) Q12H amoxicillin-pot clavulanate [Augmentin] 875-125 mg tablet 1 tab PO Q12H Qty: 14 0RF
[2023-05-22] MEDS: Oxymetazoline HCl 0.05 % Nasal 15 ML SPRAY 2 SPRAY NOSTRIL-B (18:29)
--- NOTE | 2023-05-22 18:35 | PC.NURSE ---
22gIV placed in the left forearm w/o difficulty. labs drawn and sent to lab. straight catheterization performed - pt tolerated well. 60ml of cloudy/dark urine output noted immediately post catheterization. documented in I&O section. pt was incontinent of stool/urine - pt cleaned and changed into fresh linen. pt now resting comfortably in no apparent distress. respirations even and unlabored. call pitts placed within reach.
[2023-05-22 18:47] LABS: Venous Blood Gas Refer to POC result
[2023-05-22 18:49] LABS: Hematocrit 29.5 % (37.0-47.0); Hemoglobin 8.6 g/dl (12.0-16.0); Mean Corpuscular HGB Conc 29.2 g/dl (31.0-35.0); Mean Corpuscular Hemoglobin 28.8 pg (27.0-33.0); Mean Corpuscular Volume 98.7 fL (80.0-98.0); Mean Platelet Volume 9.7 fL (9.4-12.3); NRBC Pct Auto 0.7 /100WBC (0.0-0.2); Red Blood Count 2.99 X10*6/uL (4.20-5.50); Red Cell Distribution Width 29.9 % (11.0-16.0)
[2023-05-22 18:54] LABS: VBG Base Excess -16.7 mmol/L; VBG HCO3 9 mmol/L (22-26); VBG pCO2 23 mmHg; VBG pO2 46 mmHg
[2023-05-22 18:54] LABS: White Blood Count 34.5 X10*3/uL (4.8-10.8)
[2023-05-22 18:55] LABS: INTERNATIONAL NORM RATIO 1.3 (0.9-1.1); Prothrombin Time 15.2 SEC (11.1-13.3)
[2023-05-22 18:57] LABS: Ammonia 31 umol/L (13-55)
[2023-05-22 18:58] LABS: Partial Thromboplastin Time 30.4 SEC (26.0-36.4)
[2023-05-22 19:00] LABS: Lactic Acid 1.2 mmol/L (0.5-2.0)
[2023-05-22 19:01] LABS: Appearance Urine Turbid; Color Urine Yellow; Glucose Urine UA 100 mg/dL (Negative); Nitrite Urine Positive (Negative); PH 6.5 (5.0-9.0); Specific Gravity - Urine 1.025 (1.005-1.025); UMIC TRIGGER UACC YES; Urine Blood Large (3+) (Negative); Urine Ketones Trace mg/dL (Negative); Urine Protein 300 (3+) mg/dL (Neg-Trace)
[2023-05-22 19:03] LABS: Leukocyte Esterase Urine Large (3+) (Negative)
[2023-05-22 19:10] LABS: Troponin-I High Sensitivity 29.7 ng/L (<3.5-17.0)
[2023-05-22 19:11] LABS: Platelet Count 22 X10*3/uL (160-400)
[2023-05-22 19:12] LABS: Acanthocytes 2+ (3-5) /OIF; Band Neutrophils Percent 2 % (3-5); Lymphocytes Absolute Manual 1.7 X10*3/uL (1.2-4.9); Lymphocytes Percent Manual 5 % (20-40); Macrocytosis 1+ (5-14) /OIF; Metamyelocytes Percent 3 %; Monocytes Absolute Manual 0.3 X10*3/uL (0.1-1.2); Monocytes Percent Manual 1 % (2-11); Neutrophils Absolute Manual 31.4 X10*3/uL (2.0-8.3); Neutrophils Percent Manual 89 % (45-73); Nucleated Red Blood Cells 1 /100WBC (0-0); RBC Morphology NOTED
[2023-05-22 19:13] LABS: Platelet Estimate DECREASED (NORMAL); Platelet Morphology Comment NORMAL
[2023-05-22 19:23] LABS: Bacteria Urine 4+ (None Seen); Hyaline Casts Urine >20 /LPF (0-2); RBC Urine >20 /HPF (0-2); UACC Culture Trigger YES; WBC Urine >50 /HPF (0-5)
[2023-05-22 19:24] LABS: Alanine Aminotransferase 11 U/L (0-31); Albumin Level 3.8 g/dL (3.5-5.0); Alkaline Phosphatase 33 U/L (39-117); Anion Gap 19 (12-20); Aspartate Amino Transferase 19 U/L (5-31); Bilirubin Direct 0.6 mg/dL (0.0-0.5); Bilirubin Total 1.3 mg/dL (0.0-1.0); Blood Urea Nitrogen 119 mg/dL (9-16); Calcium 9.9 mg/dL (8.4-10.2); Carbon Dioxide 9 mmol/L (22-29); Chloride 114 mmol/L (96-108); Creatinine Clr Calc Pharmacy 7.7; Estimated Glomerular Filt Rate 6; Glucose Random 213 mg/dL (60-115); Lipase 44 U/L (8-78); Potassium 6.8 mmol/L (3.3-5.1); Sodium 135 mmol/L (135-145); Total Protein 7.6 g/dL (6.5-8.0)
[2023-05-22 19:26] LABS: TSH reflex Free T4 0.74 uIU/mL (0.32-4.0)
[2023-05-22] MEDS: cefTRIAXone sodium 1 GM in 0.9 % Sodium Chloride 50 ML IV (19:30)
--- NOTE | 2023-05-22 19:30 | PC.NURSE ---
vss and up to date. nsr on the panel monitor. pt medicated per provider order. provider bedside speaking w/ pt and pt's daughter about plan of action at this time.
[2023-05-22 19:31] VITALS: BP 136/47; PULSE 71; RESP 16; TEMP 37.1; O2SAT 98
--- NOTE | 2023-05-22 19:46 | PC.NURSE ---
pt currently in CT - will reassess when pt returns.
--- NOTE | 2023-05-22 19:50 | PC.NURSE ---
type and screen need to be repeated at this time - tech notified/aware. will complete task when pt returns from CT.
--- NOTE | 2023-05-22 20:18 | PM.IMHP ---
History of Present Illness Date of Service: 05/22/23 <REEMA Cruz - Last Filed: 05/22/23 20:49> Attending physician on admission: Pedro Arambula <REEMA Cruz - Last Filed: 05/22/23 20:49> Chief Complaint: falls <REEMA Cruz - Last Filed: 05/22/23 20:49> 73-year-old female with history of insulin-dependent type 2 diabetes, coronary artery disease, CKD , and unspecified congestive heart failure presents to the ED via EMS from [facility] where she has been residing for evaluation of multiple falls, poor p.o. intake, and fatigue ongoing for about 2 weeks but worsening over the last 3 days. She has been experiencing bruising, petechiae, nose bleeds. She has a nonhealing wound to the left anterior lower leg that continues to bleed. She has had multiple falls and generalized weakness. On exam, the patient is altered and speech is incomprehensible. Daughter, Kameron, is at bedside who assists with history. On arrival, vital stable. She has a leukocytosis of 35.5 neutrophil predominant with 89% neutrophils, 2% bands, 5% lymphocytes. There is an anemia with H/H 8.6/29.5% with MCV 98.7, platelets 22. Smear path review pending. Creatinine 6.96, BUN 119. Potassium 6.8, chloride 114, CO2 9. Glucose 213. Magnesium 3.0, total bilirubin 1.3, direct bili 0.6. Ammonia level within normal limits. Initial troponin 29.7. TSH 0.74. Urinalysis significant for 3+ leukocytes, positive nitrites, 3+ blood, 3+ protein, trace ketones, positive urinary sediment, 4+ bacteria. Chest x-ray negative for any acute cardiopulmonary abnormality. CT of the head shows sequela of microangiopathy and global volume loss as well as lacunar infarct in the left thalamus. Discussion was had with daughter and sister who is healthcare proxy regarding patient prognosis which is guarded by both myself and ED provider. Healthcare proxy would like patient to be admitted for IV fluids, antibiotics, potassium management, and platelet infusion. <REEMA Cruz - Last Filed: 05/22/23 20:49> Review of Systems Review of Systems: Yes Unobtainable due to mental condition and Unobtainable due to mental status <REEMA Cruz - Last Filed: 05/22/23 20:49> [facility] Medical History: Medical History Facial erythema Diabetes mellitus CKD (chronic kidney disease) CAD (coronary artery disease) Hypertension CHF (congestive heart failure) <REEMA Cruz - Last Filed: 05/22/23 20:49> Surgical History: Surgical History S/P CABG (coronary artery bypass graft) History of hysterectomy <REEMA Cruz - Last Filed: 05/22/23 20:49> Social History: Social History Household Members: Family Housing: House Patient Tobacco Use Status: Never used Tobacco Smoked in Last 30 Days: No Use of substances other than those prescribed or required for medical reasons: No Advance Directives: Yes Advance Directives on File: Yes Advance Directives Date on File: 05/08/21 service: Yes <REEMA Cruz - Last Filed: 05/22/23 20:49> Meds Allergies/Adverse reactions: Allergies Allergy/AdvReac Type Severity Reaction Status Date / Time No Known Allergies Allergy Verified 05/03/21 18:09 <REEMA Cruz - Last Filed: 05/22/23 20:49> Active Medications: Current Medications Acetaminophen (Acetaminophen 325 Mg Tablet) 650 mg PO Q6H PRN PRN Reason: Pain, Mild (Pain Scale 1-3) Acetaminophen (Acetaminophen Supp 650 Mg Supp.Rect) 650 mg NM Q6H PRN PRN Reason: Pain, Mild (Pain Scale 1-3) Sodium Chloride (Ns) 1,000 mls @ 100 mls/hr IVCONT .Q10H VALORIE Calcium Gluconate (Calcium Gluconate) 2 gm in 100 mls @ 50 mls/hr IV ONCE ONE Stop: 05/22/23 22:10 Melatonin (Melatonin 3 Mg Tablet) 6 mg PO BEDTIME PRN PRN Reason: Insomnia Morphine Sulfate (Morphine Sulfate 4 Mg/Ml Cartridge) 4 mg IVPUSH Q4H PRN; Protocol PRN Reason: Pain, Severe (Pain Scale 7-10) Ondansetron HCl (Ondansetron Hcl 4 Mg/2 Ml Vial) 4 mg IVPUSH Q8H PRN PRN Reason: Nausea and Vomiting Sodium Chloride (0.9 % Sodium Chloride Flush 3 Ml Syringe) 3 ml IVFLUSH QSHIFT [facility] <REEMA Cruz - Last Filed: 05/22/23 20:49> Home medications: Home Medications Medication Instructions Recorded Confirmed Last Taken Type amlodipine 5 mg tablet 5 mg PO DAILY 05/04/21 05/04/21 Unknown History aspirin 81 mg tablet,delayed 81 mg PO DAILY 05/04/21 05/04/21 Unknown History release atorvastatin 20 mg tablet 20 mg PO DAILY 05/04/21 05/04/21 Unknown History cyclosporine 0.05 % eye drops 1 drp ophthalmic (eye) Q12H 05/04/21 05/04/21 Unknown History (Restasis MultiDose) furosemide 40 mg tablet 40 mg PO DAILY 05/04/21 05/04/21 Unknown History insulin glargine 100 unit/mL (3 30 unit subcut BID 05/04/21 05/04/21 Unknown History mL) subcutaneous pen (Lantus Solostar U-100 Insulin) insulin lispro 100 unit/mL 10 unit subcut TID 05/04/21 05/04/21 Unknown History subcutaneous pen (Humalog KwikPen (U-100) Insulin) losartan 100 mg tablet 100 mg PO DAILY 05/04/21 05/04/21 Unknown History magnesium 250 mg tablet 500 mg PO BEDTIME 05/04/21 05/04/21 Unknown History metoprolol tartrate 25 mg tablet 25 mg PO BID 05/04/21 05/04/21 Unknown History multivitamin 1 tab PO DAILY 05/04/21 05/04/21 Unknown History niacinamide 500 mg tablet 500 mg PO BID 05/04/21 05/04/21 Unknown History olopatadine 0.1 % eye drops 1 drp ophthalmic (eye) BID 05/04/21 05/04/21 Unknown History (Pataday Twice Daily Relief) potassium chloride 10 mEq 10 meq PO DAILY 05/04/21 05/04/21 Unknown History capsule,extended release tacrolimus 0.1 % topical ointment 1 appl topical DAILY 05/04/21 05/04/21 Unknown History <REEMA Cruz - Last Filed: 05/22/23 20:49> Physical Exam Vital Signs and Narrative: Vital Signs: Last Vital Signs Temp 98.7 F 05/22/23 19:31 Pulse 71 05/22/23 19:31 Resp 16 05/22/23 19:31 BP 136/47 L 05/22/23 19:31 Pulse Ox 98 05/22/23 19:31 O2 Del Method Room Air 05/22/23 19:31 BMI result Body Mass Index 31.7 <REEMA Cruz - Last Filed: 05/22/23 20:49> Constitutional - Awake and Alert, No apparent distress Eyes - PERRLA, EOMI Cardiovascular - S1S2, RRR, No edema Respiratory - Normal lung expansion, Normal respiratory effort, No respiratory distress, CTA bilaterally Gastrointestinal - NT / ND; +BS; No rebound or guarding Extremities - no calf tenderness bilaterally, no swelling Skin - Warm/Dry Neurological - Alert & disoriented, incomprehensible speech, unable to follow commands Psychological - Appropriate affect <REEMA Cruz - Last Filed: 05/22/23 20:49> Results Labs CBC and Chem 7: 05/22/23 18:35 05/22/23 18:34 <REEMA Cruz - Last Filed: 05/22/23 20:49> Labs: Laboratory Results - last 24 hr 05/22/23 05/22/23 05/22/23 18:34 18:35 18:37 MCV 98.7 H MCH 28.8 MCHC 29.2 L RDW 29.9 H Plt Count 22 L D MPV 9.7 Immature Gran % (Auto) Cancelled Neut % (Auto) Cancelled Lymph % (Auto) Cancelled [place] % (Auto) Cancelled Eos % (Auto) Cancelled Baso % (Auto) Cancelled Lymph # (Auto) Cancelled [place] # (Auto) Cancelled Eos # (Auto) Cancelled Baso # (Auto) Cancelled Abs Immat Gran (auto) Cancelled Absolute Neuts (auto) Cancelled Absolute Nucleated RBC 0.230 H Nucleated RBC % (auto) 0.7 H Neutrophils % (Manual) 89 H Band Neutrophils % 2 L Lymphocytes % (Manual) 5 L Monocytes % (Manual) 1 L Metamyelocytes % 3 Abs Neuts (Manual) 31.4 H Lymphocytes # (Manual) 1.7 Monocytes # (Manual) 0.3 Metamyelocytes # 1.0 Nucleated RBCs 1 H Platelet Estimate DECREASED Plt Morphology Comment NORMAL RBC Morphology NOTED Macrocytosis 1+ (5-14) Acanthocytes (Spur) 2+ (3-5) PT 15.2 H INR 1.3 H APTT 30.4 VBG pH VBG pCO2 VBG pO2 VBG HCO3 VBG O2 Saturation VBG Base Excess Anion Gap 19 Estim Creat Clear Calc 7.7 Estimated GFR 6 Random Glucose 213 H Lactic Acid 1.2 Calcium 9.9 Magnesium 3.0 H Total Bilirubin 1.3 H Direct Bilirubin 0.6 H AST 19 ALT 11 Alkaline Phosphatase 33 L Ammonia 31 Total Protein 7.6 Albumin 3.8 Lipase 44 TSH 0.74 Urine Color Yellow Urine Appearance Turbid Urine pH 6.5 Ur Specific [place] 1.025 Urine Protein 300 (3+) H Urine Glucose (UA) 100 H Urine Ketones Trace Urine Blood Large (3+) H Urine Nitrite Positive H Ur Leukocyte Esterase Large (3+) H Urine RBC >20 H Urine WBC >50 H Ur Squamous Epith Cells 3-5 Urine Bacteria 4+ Hyaline Casts >20 05/22/23 18:44 MCV MCH MCHC RDW Plt Count MPV Immature Gran % (Auto) Neut % (Auto) Lymph % (Auto) [place] % (Auto) Eos % (Auto) Baso % (Auto) Lymph # (Auto) [place] # (Auto) Eos # (Auto) Baso # (Auto) Abs Immat Gran (auto) Absolute Neuts (auto) Absolute Nucleated RBC Nucleated RBC % (auto) Neutrophils % (Manual) Band Neutrophils % Lymphocytes % (Manual) Monocytes % (Manual) Metamyelocytes % Abs Neuts (Manual) Lymphocytes # (Manual) Monocytes # (Manual) Metamyelocytes # Nucleated RBCs Platelet Estimate Plt Morphology Comment RBC Morphology Macrocytosis Acanthocytes (Spur) PT INR APTT VBG pH 7.20 L* VBG pCO2 23 VBG pO2 46 VBG HCO3 9 L VBG O2 Saturation 71.0 VBG Base Excess -16.7 Anion Gap Estim Creat Clear Calc Estimated GFR Random Glucose Lactic Acid Calcium Magnesium Total Bilirubin Direct Bilirubin AST ALT Alkaline Phosphatase Ammonia Total Protein Albumin Lipase TSH Urine Color Urine Appearance Urine pH Ur Specific [place] Urine Protein Urine Glucose (UA) Urine Ketones Urine Blood Urine Nitrite Ur Leukocyte Esterase Urine RBC Urine WBC Ur Squamous Epith Cells Urine Bacteria Hyaline Casts <REEMA Cruz - Last Filed: 05/22/23 20:49> Imaging Radiologist's Impressions: Impressions Chest X-Ray 05/22/23 17:47 FINDINGS/IMPRESSION: The study is limited by portable technique and low lung volumes. There is no gross acute radiographic finding. No gross focal infiltrate, effusion, pneumothorax is seen. The heart appears normal in size. The aorta is mildly atherosclerotic. The patient is status post median sternotomy. Head CT 05/22/23 19:48 IMPRESSION: 1. Sequela of microangiopathy and global volume loss. 2. Lacunar infarct in the left thalamus. 3. Sinus disease. <REEMA Cruz - Last Filed: 05/22/23 20:49> Assessment and Plan (1) Leukocytosis: Qualifiers: Leukocytosis type: unspecified Qualified Code(s): D72.829 - Elevated white blood cell count, unspecified <REEMA Cruz - Last Filed: 05/22/23 20:49> Status: Acute <REEMA Cruz - Last Filed: 05/22/23 20:49> (2) Acute hyperkalemia: Status: Acute <REEMA Cruz - Last Filed: 05/22/23 20:49> (3) Metabolic acidosis: Status: Acute <REEMA Cruz - Last Filed: 05/22/23 20:49> (4) Acute UTI: Status: Acute <REEMA Cruz - Last Filed: 05/22/23 20:49> (5) Thrombocytopenia: Status: Acute <REEMA Cruz - Last Filed: 05/22/23 20:49> 73-year-old female with history of insulin-dependent type 2 diabetes, coronary artery disease, CKD , and unspecified congestive heart failure admitted for further management of ESRD, hyperkalemia, UTI, and acute leukemia. Discussion had with sister, Diana, who is health care proxy that prognosis is poor as pt and family do not want dialysis or chemotherapy. Discussed comfort measures but sister, who lives on the [facility], wants to see her sister and cannot come until the morning. Will admit for IV abx, IVF, potassium management, and platelets with plan to move towards comfort measures. #Acute leukocytosis/thrombocytopenia- concern for acute leukemia -WBC 34.5, plt 22, anemia. Symptomatic with ecchymosis, petechiae, epistaxis -type and screen, platelets to be transfused -repeat CBC a.m. # acute UTI -UA with 3+ leukocytes, positive nitrites, 3+ blood, positive urinary sediment, 4+ bacteria -IV ceftriaxone x1 -urine culture pending -leukocytosis related to above, not sepsis # FRANKLIN on CKD, unknown stage progressing toward ESRD -family declines dialysis -IVF -avoid nephrotoxins -follow BMP # hyperkalemia -K 6.8 -EKG without peaked t waves -Give calcium gluconate, IV insulin -follow BMP -monitor on telemetry # acute metabolic acidosis -secondary to FRANKLIN -give 1 amp sodium bicarb -plan as above -repeat VBG a.m. # acute toxic metabolic encephalopathy -secondary to uremia -keep NPO -plan as above # hypertension -hold antihypertensives as patient is NPO # unspecified congestive heart failure -no acute exacerbation -hold Lasix as patient is NPO and is euvolemic appearing on exam #Lacunar infarct -seen on head ct, likely chronic DVT prophylaxis- scps dnr/dni- plan to move towards [facility]. HCP, sister Diana, Patient requires inpatient stay at least 2 midnights for management of FRANKLIN with hyperkalemia and acute metabolic encephalopathy as well as acute metabolic acidosis with planned move towards comfort measures only <REEMA Cruz - Last Filed: 05/22/23 20:49> 73-year-old female with history of insulin-dependent type 2 diabetes, coronary artery disease, CKD , and unspecified congestive heart failure admitted for further management of ESRD, hyperkalemia, UTI, and acute leukemia. Discussion had with sister, Diana, who is health care proxy that prognosis is poor as pt and family do not want dialysis or chemotherapy. Discussed comfort measures but sister, who lives on the [facility], wants to see her sister and cannot come until the morning. Will admit for IV abx, IVF, potassium management, and platelets with plan to move towards comfort measures. # acute UTI -UA with 3+ leukocytes, positive nitrites, 3+ blood, positive urinary sediment, 4+ bacteria -IV ceftriaxone x1 -urine culture pending -no sepsis # FRANKLIN on CKD, unknown stage progressing toward ESRD -family declines dialysis -IVF -avoid nephrotoxins -follow BMP #Acute leukocytosis/thrombocytopenia- concern for leukemia -WBC 34.5, plt 22, anemia. Symptomatic with ecchymosis, petechiae, epistaxis -type and screen, platelets to be transfused -repeat CBC a.m. # hyperkalemia -K 6.8 -EKG without peaked t waves -Give calcium gluconate, IV insulin -follow BMP -monitor on telemetry # acute metabolic acidosis -secondary to FRANKLIN -give 1 amp sodium bicarb -plan as above -repeat VBG a.m. # acute toxic metabolic encephalopathy -secondary to uremia -keep NPO -plan as above # hypertension -hold antihypertensives as patient is NPO # unspecified congestive heart failure -no acute exacerbation -hold Lasix as patient is NPO and is euvolemic appearing on exam #Lacunar infarct -seen on head ct, likely chronic DVT prophylaxis- scps dnr/dni- plan to move towards [facility]. HCP, sister Diana, Patient requires inpatient stay at least 2 midnights for management of FRANKLIN with hyperkalemia and acute metabolic encephalopathy as well as acute metabolic acidosis with planned move towards comfort measures only <Pedro Arambula MD - Last Filed: 05/22/23 20:56> Time Spent With Patient Time: Total time managing care of this patient today ____ minutes. <REEMA Cruz - Last Filed: 05/22/23 20:49> Quality Stroke Does the patient have a stroke diagnosis?: No <REEMA Cruz - Last Filed: 05/22/23 20:49> VTE Prior VTE?: No <REEMA Cruz - Last Filed: 05/22/23 20:49> VTE Risk Level:: Medical - moderate - high <REEMA Cruz Last Filed: 05/22/23 20:49> VTE Device Contraindication: Treatment Not Indicated <REEMA Cruz - Last Filed: 05/22/23 20:49> VTE Drug Contraindication: Treatment Not Indicated <REEMA Cruz - Last Filed: 05/22/23 20:49>
[2023-05-22] MEDS: Insulin Regular, Human 100 UNIT/ML 3 ML VIAL IVPUSH (20:23)
[2023-05-22] MEDS: Calcium Gluconate/NaCl,Iso-Osm 2 GM/100 ML PLAST..BAG IV (20:25)
[2023-05-22] MEDS: Sodium Bicarbonate 8.4% 50 MEQ/50 ML SYRINGE IVPUSH (20:25)
--- NOTE | 2023-05-22 20:34 | PC.NURSE ---
type and screen obtained by tech. medication administered per provider order. pt's daughter bedside for support. call pitts placed within reach.
[2023-05-22 21:24] VITALS: BP 149/65; PULSE 77; RESP 20; TEMP 36.6
[2023-05-22 21:45] VITALS: BP 144/54; PULSE 72; RESP 19; TEMP 36.2
--- NOTE | 2023-05-22 21:47 | PC.NURSE ---
hunter, [phone] call with updates
[2023-05-22 23:36] VITALS: BP 109/86; PULSE 84; RESP 16; O2SAT 97
--- NOTE | 2023-05-22 23:38 | MHC.EDTECH ---
This tech assumed care of patient at 2300, hourly rounds and vitals completed. Daughter does not want case monitor placed,this tech was made aware that patient will become [facility] from [facility]. This tech got a comfort bag for patient,placed blanket on patient and gave daughter the card and place picture on door. This tech will get patient a hospital bed for comfort. Belonging list completed and patient has nothing with her.
[2023-05-23 00:18] VITALS: BP 147/72; PULSE 74; RESP 20; TEMP 36.7
--- NOTE | 2023-05-23 00:33 | PC.NURSE ---
spoke to provider, he will make pt BREAST SPLITTER in am as waiting for daughter to come visit. For now vitals q8 hours, platelets, fluids, antibiotics as ordered.
--- NOTE | 2023-05-23 00:58 | MHC.EDTECH ---
This tech placed patient into hospital bed for comfort and placed pillow on left side, call pitts within reach and daughter at bedside.
--- NOTE | 2023-05-23 03:01 | MHC.EDTECH ---
Hourly rounds completed, Pure wick in place,patient is clean and dry. patient repositioned to comfort.
--- NOTE | 2023-05-23 04:34 | MHC.EDTECH ---
Hourly rounds completed,patient repositioned to back and is clean and dry. Patient is resting comfortably at this time and call pitts within reach.
[2023-05-23 05:11] LABS: Hematocrit 28.7 % (37.0-47.0); Hemoglobin 8.3 g/dl (12.0-16.0); Mean Corpuscular HGB Conc 28.9 g/dl (31.0-35.0); Mean Corpuscular Hemoglobin 28.4 pg (27.0-33.0); Mean Corpuscular Volume 98.3 fL (80.0-98.0); Mean Platelet Volume 10.5 fL (9.4-12.3); Red Blood Count 2.92 X10*6/uL (4.20-5.50)
[2023-05-23 05:13] LABS: Platelet Count 21 X10*3/uL (160-400)
[2023-05-23 05:14] LABS: White Blood Count 35.6 X10*3/uL (4.8-10.8)
[2023-05-23] MEDS: 0.9 % Sodium Chloride 1,000 ML 100 ML IVCONT (05:19)
--- NOTE | 2023-05-23 05:26 | PC.NURSE ---
Lab called with critical WBC 35.6. Dr Arambula notified.
[2023-05-23 05:32] LABS: Band Neutrophils Percent 14 % (3-5); Basophils Abs Manual 0.4 X10*3/uL (0.0-0.2); Basophils Percent Manual 1 % (0-2); Lymphocytes Absolute Manual 2.1 X10*3/uL (1.2-4.9); Lymphocytes Percent Manual 6 % (20-40); Metamyelocytes Absolute 0.7 X10*3/uL; Metamyelocytes Percent 2 %; Monocytes Absolute Manual 0.4 X10*3/uL (0.1-1.2); Monocytes Percent Manual 1 % (2-11); Neutrophils Percent Manual 76 % (45-73)
[2023-05-23 05:33] LABS: Acanthocytes 2+ (3-5) /OIF; Hypochromasia 1+ (5-14) /OIF; Macrocytosis 1+ (5-14) /OIF; Platelet Estimate DECREASED (NORMAL); Platelet Morphology Comment NORMAL; Polychromasia 1+ (0-2) /OIF; RBC Morphology NOTED; Schistocytes 1+ (0-2) /OIF
[2023-05-23 05:47] LABS: Anion Gap 24 (12-20); Blood Urea Nitrogen > 125 mg/dL (9-16); Calcium 10.4 mg/dL (8.4-10.2); Carbon Dioxide 8 mmol/L (22-29); Chloride 111 mmol/L (96-108); Creatinine Clr Calc Pharmacy 7.6; Estimated Glomerular Filt Rate 6; Glucose Random 268 mg/dL (60-115); Potassium 6.5 mmol/L (3.3-5.1); Sodium 136 mmol/L (135-145)
--- NOTE | 2023-05-23 05:48 | PC.NURSE ---
Critical labels, reported to Dr. Arambula, K 6.05, CO2 8, Creat 7.03, Reported to [facility]. Will continue to monitor.
[2023-05-23 06:25] VITALS: BP 178/58; PULSE 76; RESP 20; TEMP 36.7; O2SAT 97
--- NOTE | 2023-05-23 06:26 | MHC.EDTECH ---
Hourly rounds and vitals completed,patient is resting comfortably at this time,patient has a bed assignment at this time,waiting for nurse to give report.
--- NOTE | 2023-05-23 06:37 | PC.NURSE ---
Nurse to nurse report given to BENIGNO Roberson RN. patient to be transported to [facility] by platform power technician.
[2023-05-23 08:00] VITALS: BP 157/71; PULSE 79; RESP 20; TEMP 36.9; O2SAT 96
--- NOTE | 2023-05-23 08:21 | PHA.MEDREC ---
Pharmacy Consult ? Medication Reconciliation Pharmacy has completed the medication reconciliation.
--- NOTE | 2023-05-23 09:44 | P.PNIM_ITS ---
Subjective Subjective Date of Service: 05/23/23 Review of Systems Review of Systems: Yes Unobtainable due to mental condition Physical Exam 2 Vital Signs: Vital Signs: Last Vital Signs Temp 98.5 F 05/23/23 08:00 Pulse 79 05/23/23 08:00 Resp 20 05/23/23 08:00 BP 157/71 H 05/23/23 08:00 Pulse Ox 96 05/23/23 08:00 O2 Del Method Room Air 05/23/23 08:00 BMI result Body Mass Index 31.7 obtunded, ill appearing Objective Data Active Medications Acetaminophen (Acetaminophen 325 Mg Tablet) 650 mg PO Q6H PRN PRN Reason: Pain, Mild (Pain Scale 1-3) Acetaminophen (Acetaminophen Supp 650 Mg Supp.Rect) 650 mg NV Q6H PRN PRN Reason: Pain, Mild (Pain Scale 1-3) Sodium Chloride (Ns) 1,000 mls @ 100 mls/hr IVCONT .Q10H [facility] Last Admin: 05/23/23 05:19 Dose: 100 mls/hr Documented By: STEFANIA Melatonin (Melatonin 3 Mg Tablet) 6 mg PO BEDTIME PRN PRN Reason: Insomnia Morphine Sulfate (Morphine Sulfate 4 Mg/Ml Cartridge) 4 mg IVPUSH Q4H PRN; Protocol PRN Reason: Pain, Severe (Pain Scale 7-10) Ondansetron HCl (Ondansetron Hcl 4 Mg/2 Ml Vial) 4 mg IVPUSH Q8H PRN PRN Reason: Nausea and Vomiting Sodium Chloride (0.9 % Sodium Chloride Flush 3 Ml Syringe) 3 ml IVFLUSH QSHIFT [facility] Last Admin: 05/23/23 08:48 Dose: Not Given Documented By: LIANET Non-Admin Reason: IV Running Labs 05/23/23 04:28 05/23/23 04:28 Labs: Laboratory Results - last 24 hr 05/22/23 05/22/23 05/22/23 18:34 18:35 18:37 MCV 98.7 H MCH 28.8 MCHC 29.2 L RDW 29.9 H Plt Count 22 L D MPV 9.7 Immature Gran % (Auto) Cancelled Neut % (Auto) Cancelled Lymph % (Auto) Cancelled [place] % (Auto) Cancelled Eos % (Auto) Cancelled Baso % (Auto) Cancelled Lymph # (Auto) Cancelled [place] # (Auto) Cancelled Eos # (Auto) Cancelled Baso # (Auto) Cancelled Abs Immat Gran (auto) Cancelled Absolute Neuts (auto) Cancelled Absolute Nucleated RBC 0.230 H Nucleated RBC % (auto) 0.7 H Neutrophils % (Manual) 89 H Band Neutrophils % 2 L Lymphocytes % (Manual) 5 L Monocytes % (Manual) 1 L Basophils % (Manual) Metamyelocytes % 3 Abs Neuts (Manual) 31.4 H Lymphocytes # (Manual) 1.7 Monocytes # (Manual) 0.3 Basophils # (Manual) Metamyelocytes # 1.0 Nucleated RBCs 1 H Platelet Estimate DECREASED Plt Morphology Comment NORMAL RBC Morphology NOTED Polychromasia Hypochromasia Macrocytosis 1+ (5-14) Acanthocytes (Spur) 2+ (3-5) Schistocytes PT 15.2 H INR 1.3 H APTT 30.4 VBG pH VBG pCO2 VBG pO2 VBG HCO3 VBG O2 Saturation VBG Base Excess Anion Gap 19 Estim Creat Clear Calc 7.7 Estimated GFR 6 Random Glucose 213 H Lactic Acid 1.2 Calcium 9.9 Magnesium 3.0 H Total Bilirubin 1.3 H Direct Bilirubin 0.6 H AST 19 ALT 11 Alkaline Phosphatase 33 L Ammonia 31 Total Protein 7.6 Albumin 3.8 Lipase 44 TSH 0.74 Urine Color Yellow Urine Appearance Turbid Urine pH 6.5 Ur Specific [place] 1.025 Urine Protein 300 (3+) H Urine Glucose (UA) 100 H Urine Ketones Trace Urine Blood Large (3+) H Urine Nitrite Positive H Ur Leukocyte Esterase Large (3+) H Urine RBC >20 H Urine WBC >50 H Ur Squamous Epith Cells 3-5 Urine Bacteria 4+ Hyaline Casts >20 Blood Type Antibody Screen 05/22/23 05/22/23 05/23/23 18:44 20:12 04:28 MCV 98.3 H MCH 28.4 MCHC 28.9 L RDW 30.0 H Plt Count 21 L MPV 10.5 Immature Gran % (Auto) Cancelled Neut % (Auto) Cancelled Lymph % (Auto) Cancelled [place] % (Auto) Cancelled Eos % (Auto) Cancelled Baso % (Auto) Cancelled Lymph # (Auto) Cancelled [place] # (Auto) Cancelled Eos # (Auto) Cancelled Baso # (Auto) Cancelled Abs Immat Gran (auto) Cancelled Absolute Neuts (auto) Cancelled Absolute Nucleated RBC 0.360 H Nucleated RBC % (auto) 1.0 H Neutrophils % (Manual) 76 H Band Neutrophils % 14 H Lymphocytes % (Manual) 6 L Monocytes % (Manual) 1 L Basophils % (Manual) 1 Metamyelocytes % 2 Abs Neuts (Manual) 32.0 H Lymphocytes # (Manual) 2.1 Monocytes # (Manual) 0.4 Basophils # (Manual) 0.4 H Metamyelocytes # 0.7 Nucleated RBCs Platelet Estimate DECREASED Plt Morphology Comment NORMAL RBC Morphology NOTED Polychromasia 1+ (0-2) Hypochromasia 1+ (5-14) Macrocytosis 1+ (5-14) Acanthocytes (Spur) 2+ (3-5) Schistocytes 1+ (0-2) PT INR APTT VBG pH 7.20 L* VBG pCO2 23 VBG pO2 46 VBG HCO3 9 L VBG O2 Saturation 71.0 VBG Base Excess -16.7 Anion Gap 24 H Estim Creat Clear Calc 7.6 Estimated GFR 6 Random Glucose 268 H Lactic Acid Calcium 10.4 H Magnesium Total Bilirubin Direct Bilirubin AST ALT Alkaline Phosphatase Ammonia Total Protein Albumin Lipase TSH Urine Color Urine Appearance Urine pH Ur Specific [place] Urine Protein Urine Glucose (UA) Urine Ketones Urine Blood Urine Nitrite Ur Leukocyte Esterase Urine RBC Urine WBC Ur Squamous Epith Cells Urine Bacteria Hyaline Casts Blood Type B Positive Antibody Screen NEGATIVE Assessment and Plan (1) Leukocytosis: Status: Acute Plan 73F PMH diabetes, coronary disease, CKD unspecified, CHF unspecified, presented with weakness Acute metabolic encephalopathy due to uremic encephalopathy from acute kidney injury on CKD unspecified, urinary tract infection complicated by hyperkalemia, acute metabolic acidosis Continue supportive care with IV fluids, likely to transition to comfort measures only Acute leukocytosis and thrombocytopenia Concern for acute leukemia Status post platelets Unlikely to pursue further workup Coronary disease, diabetes, unspecified CHF Will hold meds for now DNR/DNI reason for continued hospitalization: alan, ams Time Spent With Patient Time: Total time managing care of this patient today ____ minutes. Quality Stroke Does the patient have a stroke diagnosis?: No VTE Prior VTE?: No VTE Risk Level:: Medical - moderate - high VTE Device Contraindication: Treatment Not Indicated VTE Drug Contraindication: Treatment Not Indicated
--- NOTE | 2023-05-23 10:33 | MHC.CM.PN ---
Addendum entered by Nafisa Srivastava RN 05/23/23 13:09: Update: Per MD pt is to DC today, return to [facility] as [facility]. SNF updated via [facility] and will work with family to set up hospice with their contracted agencies. BLS transport scheduled for 3pm. Reviewed with sister/HCP Diana and daughter Nancy at bedside. Family is agreeable to plan. Updated MOLST scanned to [employer], physical copy in chart, original to be sent with patient. Original Note: This CM spoke with HCP/Sister Diana ([phone]) as pt is currently confused. IMM addressed. Pt is LTC with [facility]. PCP Lilibeth Munoz. HCP will meet with MD today to discuss goals of care. DP pending. CM will follow.
--- NOTE | 2023-05-23 10:49 | P.CDIM_ITS ---
PROVIDER RESPONSE TEXT: To clarify, the appropriate diagnosis supported by the clinical indicators: Traumatic wound: left anterior leg QUERY TEXT: PHYSICIAN'S DOCUMENTATION REQUEST Date of Query: 05/23/2023 10:31 AM EDT Patient Name: ELSIE MERLOS Admit Date: 05/23/2023 Dear Adam Singh, A review of the medical record indicates additional documentation may be needed. Please review below and update the documentation accordingly. Clinical Indicators: Per ER Physician Documentation 05/22/23: bloody rash on L anterior leg dressings are stuck to the wound so when you pull it off the skin rips off it needed saline to be rem justin L anterior vivar there are ripped off shallow ulcers with friable bleeding edges Based on the above, could you please provide further information regarding the ulcer/wound: Diabetic ulcer Please specify the location and laterality of the ulcer/wound Venous stasis ulcer Please specify the location and laterality of the ulcer/wound Arterial (ischemic) ulcer Please specify the location and laterality of the ulcer/wound Pressure (decubitus) ulcer Please include the stage of the ulcer and specify the location and laterality of the ulcer/wound Traumatic wound Please specify the location and laterality of the ulcer/wound Other (explain)Clinically unable to determine (explain)Thank you, Haritha Acevedo RN Use of terms such as suspected, likely, concern for, or probable (associated with a specific diagnosi s that is being evaluated, monitored, or treated as if it exists) are acceptable and can be coded in the inpatient se tting, when documented at the time of discharge. Please use your independent medical judgment in providing your response. THIS QUERY IS PART OF THE PERMANENT MEDICAL RECORD
[2023-05-23] MEDS: Morphine Sulfate 4 MG/ML CARTRIDGE IVPUSH (11:29)
[2023-05-23 12:09] VITALS: BP 161/72; PULSE 82; RESP 20; TEMP 37; O2SAT 98
--- NOTE | 2023-05-23 12:34 | P.ACPN_ITS ---
Advanced Care Planning Note Advanced Care Planning Note Discussed with: family member(s) Time spent (in minutes): 18 Narrative: Discussed with patient's sister, her healthcare proxy, and daughter at bedside. Discussed diagnosis of acute kidney injury and leukocytosis with thrombocytopenia. Discussed poor prognosis. Decision made to avoid disease directed treatments., and to prioritize comfort care. Currently patient's vitals are stable and more alert, current plan for discharge back to the custodial on comfort measures/end of life care. Problems Discussed (1) Leukocytosis:
--- NOTE | 2023-05-23 13:17 | PM.DS ---
DS: Providers Provider Date of Service: 05/23/23 Date of admission: 05/22/23 20:13 Primary care physician: Unknown Physician DS: Diagnosis Discharge Diagnosis (1) Leukocytosis: Status: Acute DS: Summary Hospital Course Hospital Course: from initial hpi: 73-year-old female with history of insulin-dependent type 2 diabetes, coronary artery disease, CKD , and unspecified congestive heart failure presents to the ED via EMS from [facility] where she has been residing for evaluation of multiple falls, poor p.o. intake, and fatigue ongoing for about 2 weeks but worsening over the last 3 days. She has been experiencing bruising, petechiae, nose bleeds. She has a nonhealing wound to the left anterior lower leg that continues to bleed. She has had multiple falls and generalized weakness. On exam, the patient is altered and speech is incomprehensible. Daughter, Kameron, is at bedside who assists with history. On arrival, vital stable. She has a leukocytosis of 35.5 neutrophil predominant with 89% neutrophils, 2% bands, 5% lymphocytes. There is an anemia with H/H 8.6/29.5% with MCV 98.7, platelets 22. Smear path review pending. Creatinine 6.96, BUN 119. Potassium 6.8, chloride 114, CO2 9. Glucose 213. Magnesium 3.0, total bilirubin 1.3, direct bili 0.6. Ammonia level within normal limits. Initial troponin 29.7. TSH 0.74. Urinalysis significant for 3+ leukocytes, positive nitrites, 3+ blood, 3+ protein, trace ketones, positive urinary sediment, 4+ bacteria. Chest x-ray negative for any acute cardiopulmonary abnormality. CT of the head shows sequela of microangiopathy and global volume loss as well as lacunar infarct in the left thalamus. Discussion was had with daughter and sister who is healthcare proxy regarding patient prognosis which is guarded by both myself and ED provider. Healthcare proxy would like patient to be admitted for IV fluids, antibiotics, potassium management, and platelet infusio hospital course: Patient was admitted for acute metabolic encephalopathy due to uremic encephalopathy from acute kidney injury and CKD unspecified, urinary tract infection complicated by hyperkalemia, acute metabolic acidosis, acute leukocytosis and thrombocytopenia with concern for acute. She was treated conservatively with IV fluids. Is due to poor prognosis and patient's previous directives not to pursue [employer] care such as hemodialysis or chemotherapy, healthcare proxy decided to plan for end of life care at patient's long-term care facility. For other comorbidities of coronary disease, diabetes, unspecified CHF disease directed treatments will be discontinued. Time Spent with Patient Time attestation: Total time managing care of this patient today ____ minutes. Discharge coordination time: Greater than 30 minutes Quality: Safe Use of Opioids Does Pt have an Active Cancer Diagnosis on the Problem List?: No Quality: Stroke Does the patient have a stroke diagnosis?: No Physical Exam Vital Signs: Vital Signs: Last Vital Signs Temp 98.6 F 05/23/23 12:09 Pulse 82 05/23/23 12:09 Resp 20 05/23/23 12:09 BP 161/72 H 05/23/23 12:09 Pulse Ox 98 05/23/23 12:09 O2 Del Method Room Air 05/23/23 12:09 BMI result Body Mass Index 31.7 alert, ill appearing, comfortable DS: Data Data Completed and Pending Labs on day of discharge: Laboratory Results - last 24 hr 05/22/23 05/22/23 05/22/23 18:33 18:34 18:35 WBC 34.5 H* RBC 2.99 L Hgb 8.6 L Hct 29.5 L MCV 98.7 H MCH 28.8 MCHC 29.2 L RDW 29.9 H Plt Count 22 L D MPV 9.7 Immature Gran % (Auto) Cancelled Neut % (Auto) Cancelled Lymph % (Auto) Cancelled [place] % (Auto) Cancelled Eos % (Auto) Cancelled Baso % (Auto) Cancelled Lymph # (Auto) Cancelled [place] # (Auto) Cancelled Eos # (Auto) Cancelled Baso # (Auto) Cancelled Abs Immat Gran (auto) Cancelled Absolute Neuts (auto) Cancelled Absolute Nucleated RBC 0.230 H Nucleated RBC % (auto) 0.7 H Neutrophils % (Manual) 89 H Band Neutrophils % 2 L Lymphocytes % (Manual) 5 L Monocytes % (Manual) 1 L Basophils % (Manual) Metamyelocytes % 3 Abs Neuts (Manual) 31.4 H Lymphocytes # (Manual) 1.7 Monocytes # (Manual) 0.3 Basophils # (Manual) Metamyelocytes # 1.0 Nucleated RBCs 1 H Platelet Estimate DECREASED Plt Morphology Comment NORMAL RBC Morphology NOTED Polychromasia Hypochromasia Macrocytosis 1+ (5-14) Acanthocytes (Spur) 2+ (3-5) Schistocytes PT 15.2 H INR 1.3 H APTT 30.4 VBG pH VBG pCO2 VBG pO2 VBG HCO3 VBG O2 Saturation VBG Base Excess Sodium 135 Potassium 6.8 H* D Chloride 114 H Carbon Dioxide 9 L* D Anion Gap 19 BUN 119 H Creatinine 6.96 H* Estim Creat Clear Calc 7.7 Estimated GFR 6 Random Glucose 213 H Lactic Acid 1.2 Calcium 9.9 Magnesium 3.0 H Total Bilirubin 1.3 H Direct Bilirubin 0.6 H AST 19 ALT 11 Alkaline Phosphatase 33 L Ammonia 31 Troponin I High Sens 29.7 H Total Protein 7.6 Albumin 3.8 Lipase 44 TSH 0.74 Urine Color Urine Appearance Urine pH Ur Specific [place] Urine Protein Urine Glucose (UA) Urine Ketones Urine Blood Urine Nitrite Ur Leukocyte Esterase Urine RBC Urine WBC Ur Squamous Epith Cells Urine Bacteria Hyaline Casts Blood Type Antibody Screen 05/22/23 05/22/23 05/22/23 18:37 18:44 20:12 WBC RBC Hgb Hct MCV MCH MCHC RDW Plt Count MPV Immature Gran % (Auto) Neut % (Auto) Lymph % (Auto) [place] % (Auto) Eos % (Auto) Baso % (Auto) Lymph # (Auto) [place] # (Auto) Eos # (Auto) Baso # (Auto) Abs Immat Gran (auto) Absolute Neuts (auto) Absolute Nucleated RBC Nucleated RBC % (auto) Neutrophils % (Manual) Band Neutrophils % Lymphocytes % (Manual) Monocytes % (Manual) Basophils % (Manual) Metamyelocytes % Abs Neuts (Manual) Lymphocytes # (Manual) Monocytes # (Manual) Basophils # (Manual) Metamyelocytes # Nucleated RBCs Platelet Estimate Plt Morphology Comment RBC Morphology Polychromasia Hypochromasia Macrocytosis Acanthocytes (Spur) Schistocytes PT INR APTT VBG pH 7.20 L* VBG pCO2 23 VBG pO2 46 VBG HCO3 9 L VBG O2 Saturation 71.0 VBG Base Excess -16.7 Sodium Potassium Chloride Carbon Dioxide Anion Gap BUN Creatinine Estim Creat Clear Calc Estimated GFR Random Glucose Lactic Acid Calcium Magnesium Total Bilirubin Direct Bilirubin AST ALT Alkaline Phosphatase Ammonia Troponin I High Sens Total Protein Albumin Lipase TSH Urine Color Yellow Urine Appearance Turbid Urine pH 6.5 Ur Specific [place] 1.025 Urine Protein 300 (3+) H Urine Glucose (UA) 100 H Urine Ketones Trace Urine Blood Large (3+) H Urine Nitrite Positive H Ur Leukocyte Esterase Large (3+) H Urine RBC >20 H Urine WBC >50 H Ur Squamous Epith Cells 3-5 Urine Bacteria 4+ Hyaline Casts >20 Blood Type B Positive Antibody Screen NEGATIVE 05/23/23 04:28 WBC 35.6 H* RBC 2.92 L Hgb 8.3 L Hct 28.7 L MCV 98.3 H MCH 28.4 MCHC 28.9 L RDW 30.0 H Plt Count 21 L MPV 10.5 Immature Gran % (Auto) Cancelled Neut % (Auto) Cancelled Lymph % (Auto) Cancelled [place] % (Auto) Cancelled Eos % (Auto) Cancelled Baso % (Auto) Cancelled Lymph # (Auto) Cancelled [place] # (Auto) Cancelled Eos # (Auto) Cancelled Baso # (Auto) Cancelled Abs Immat Gran (auto) Cancelled Absolute Neuts (auto) Cancelled Absolute Nucleated RBC 0.360 H Nucleated RBC % (auto) 1.0 H Neutrophils % (Manual) 76 H Band Neutrophils % 14 H Lymphocytes % (Manual) 6 L Monocytes % (Manual) 1 L Basophils % (Manual) 1 Metamyelocytes % 2 Abs Neuts (Manual) 32.0 H Lymphocytes # (Manual) 2.1 Monocytes # (Manual) 0.4 Basophils # (Manual) 0.4 H Metamyelocytes # 0.7 Nucleated RBCs Platelet Estimate DECREASED Plt Morphology Comment NORMAL RBC Morphology NOTED Polychromasia 1+ (0-2) Hypochromasia 1+ (5-14) Macrocytosis 1+ (5-14) Acanthocytes (Spur) 2+ (3-5) Schistocytes 1+ (0-2) PT INR APTT VBG pH VBG pCO2 VBG pO2 VBG HCO3 VBG O2 Saturation VBG Base Excess Sodium 136 Potassium 6.5 H* Chloride 111 H Carbon Dioxide 8 L* Anion Gap 24 H BUN > 125 H Creatinine 7.03 H* Estim Creat Clear Calc 7.6 Estimated GFR 6 Random Glucose 268 H Lactic Acid Calcium 10.4 H Magnesium Total Bilirubin Direct Bilirubin AST ALT Alkaline Phosphatase Ammonia Troponin I High Sens Total Protein Albumin Lipase TSH Urine Color Urine Appearance Urine pH Ur Specific [place] Urine Protein Urine Glucose (UA) Urine Ketones Urine Blood Urine Nitrite Ur Leukocyte Esterase Urine RBC Urine WBC Ur Squamous Epith Cells Urine Bacteria Hyaline Casts Blood Type Antibody Screen Preliminary micro results at discharge 05/22/23 19:23 Urine Culture - Preliminary Urine Catheterized - [place] Catheter Gram negative fortino Discharge Plan Discharge Anticipated Discharge Date/Time: 05/23/23 13:11 Patient Disposition: [facility] SNF Discharge Diagnosis: alan Referrals: Physician,Unknown J [Primary Care Provider] - 1 Week Discharge Medications: New morphine 10 mg/5 mL solution 5 mg PO Q4H PRN (Reason: moderate pain (scale score 5-6)) Qty: 100 0RF Rx Instructions: Partial Fill upon patient request. Continued olopatadine [Pataday Twice Daily Relief] 0.1 % Drops 1 drp OPHTHALMIC (EYE) BID Restasis MultiDose 0.05 % Drops 1 drp OPHTHALMIC (EYE) Q12H acetaminophen 325 mg Tablet 650 mg PO Q4H PRN (Reason: Pain) loperamide 2 mg Tablet 2 mg PO Q6H PRN (Reason: Diarrhea) divalproex 125 mg Tablet,Delayed Release (Dr/Ec) 125 mg PO BEDTIME carboxymethylcellulose sodium 1 % Drops, Liquid Gel 1 drp OPHTHALMIC (EYE) DAILY PRN (Reason: Dry Eyes) escitalopram oxalate 5 mg Tablet 15 mg PO DAILY Discontinued multivitamin Tablet 1 tab PO DAILY furosemide 40 mg Tablet 20 mg PO DAILY atorvastatin 20 mg Tablet 20 mg PO BEDTIME amlodipine 5 mg Tablet 5 mg PO DAILY aspirin 81 mg Tablet,Delayed Release (Dr/Ec) 81 mg PO DAILY niacinamide 500 mg Tablet 500 mg PO BID magnesium 250 mg Tablet 400 mg PO BEDTIME losartan 100 mg Tablet 100 mg PO DAILY insulin lispro [Humalog KwikPen Insulin] 100 unit/mL Insulin Pen See Protocol SUBCUT TID Protocol: Insulin Correction Scale Less than or equal to 110 ---- Give (units): 0 111 to 150 Give (units): 0 151 to 200 Give (units): 2 201 to 250 Give (units): 4 251 to 300 Give (units): 6 301 to 350 Give (units): 8 Greater than 350 Give (units): 10 Call MD if Blood Glucose > : 350 metoprolol tartrate 25 mg Tablet 25 mg PO BID insulin glargine [Lantus Solostar U-100 Insulin] 100 unit/mL (3 mL) Insulin Pen 20 unit SUBCUT BID azithromycin 250 mg Tablet 250 mg PO BEDTIME Rx Instructions: last day 05/23 Culturelle 10 billion cell Capsule 1 cap PO BID Procrit 10,000 unit/mL Solution 10,000 unit SUBCUT WE cholecalciferol (vitamin D3) 1,250 mcg (50,000 unit) Tablet 1,250 mcg PO FR Discharge Orders: Discharge Order (Routine); Ordered 05/23/23 Ordered By: Adam Singh Diet: Advance to usual diet Activity on Discharge: As tolerated Stand Alone Forms: Patient Portal Discharge page Care Plan Goals: comfort measures Health Concerns: end of life Plan of Treatment: comfort measures Assessment: ee above Discharge Date/Time: 05/23/23 15:22
== END 2023-05-23 15:22 | disposition intermediate care facility (04) | DRG 689 ==
LOC: HO.ED 19:38 → HO.EDOVER 21:18 → HO.IMC 05-23 06:05
PROVIDERS: Admitting Provider Student in an Organized Health Care Education/Training Program; Emergency Provider Emergency Medicine; Visit Provider Internal Medicine
DX: N39.0 Urinary tract infection, site not specified (principal); G92.8 Other toxic encephalopathy; I13.0 Hypertensive heart and chronic kidney disease with heart failure and stage 1 through stage 4 chronic kidney disease, or unspecified chronic kidney disease; E87.21 Acute metabolic acidosis; C95.00 Acute leukemia of unspecified cell type not having achieved remission; N17.9 Acute kidney failure, unspecified; N18.9 Chronic kidney disease, unspecified; I25.10 Atherosclerotic heart disease of native coronary artery without angina pectoris; I50.9 Heart failure, unspecified; Z66 Do not resuscitate; E87.5 Hyperkalemia; E11.22 Type 2 diabetes mellitus with diabetic chronic kidney disease; Z95.1 Presence of aortocoronary bypass graft; Z86.73 Personal history of transient ischemic attack (TIA), and cerebral infarction without residual deficits; Z79.899 Other long term (current) drug therapy
CPT/HCPCS: 36415; 70450; 71045; 80048; 80076; 81001; 81003; 82140; 82803; 83605; 83690; 83735; 84443; 84484; 85007; 85025; 85027; 85610; 85730; 86850; 86900; 86901; 87040; 87086; 87088; 87186; 93005; 99285; J0613; J0696; J2270; P9035

== ENCOUNTER → 2023-05-22 18:12 | Outpatient (BNV) | payer MEDICARE, OTHER, SELFPAY | PROVIDERS: Emergency Provider Emergency Medicine; Visit Provider Physician Assistant | DX: D72.829 Elevated white blood cell count, unspecified (principal); E87.5 Hyperkalemia; E87.20 Acidosis, unspecified; N39.0 Urinary tract infection, site not specified; D69.6 Thrombocytopenia, unspecified | CPT/HCPCS: 99223; 99239; 99497 ==